=== PATIENT | female | born 1935 | race Caucasian/White ===

== ENCOUNTER → 2017-03-12 | Outpatient (CLI) | payer OTHER ==
[~2017-03-12] MED LIST: ACET-1256 PO; CLR10 PO; CMD25 PO; DIGO0.2518 PO; GABA-112 PO; METO25TA56 PO; PXL20 PO
--- NOTE | 2017-03-13 12:46 | MAMMOGRAPHY REPORT ---
BILATERAL DIGITAL SCREENING MAMMOGRAM TOMOSYNTHESIS WITH CAD: 03/12/2017 CLINICAL HISTORY: Routine screening. Patient has no complaints. TECHNIQUE: Breast tomosynthesis in addition to standard 2D mammography was performed. Current study was also evaluated with a Computer Aided Detection (CAD) system. COMPARISON: Comparison is made to exams dated: 09/19/2016 ultrasound, 09/19/2016 mammogram, 03/15/20 16 ultrasound, 03/06/2016 mammogram, 09/23/2014 ultrasound biopsy, and 03/04/2015 mammogram - [facility]. BREAST COMPOSITION: The tissue of both breasts is heterogeneously dense, which may obscure small ma sses. FINDINGS: There is a stable ribbon shaped metallic biopsy marker in the 6:00 left breast. A few sta ble benign-appearing microcalcifications. No new suspicious mass, architectural distortion or clust er of microcalcifications is seen. IMPRESSION: ACR BI-RADS CATEGORY 1: NEGATIVE There is no mammographic evidence of malignancy. A 1 year screening mammogram is recommended. The p atient will receive written notification of the results. Approximately 10% of breast cancers are not detected with mammography. A negative mammographic repor t should not delay biopsy if a clinically suggestive mass is present. Luz Keen M.D. ay/:03/12/2017 16:45:52 [employer] Hand: Lashae MERCADO)(Gertrude), [facility] letter sent: Normal 1/2 BI-RADS Code: ACR BI-RADS Category 1: Negative
== END | disposition home or self-care (01) ==
LOC: C.MAMM 09:35
PROVIDERS: ATTEND Obstetrics & Gynecology
DX: Z12.31 Encounter for screening mammogram for malignant neoplasm of breast (principal)

== ENCOUNTER → 2018-01-07 | Outpatient (CLI) | payer OTHER ==
[2018-01-07 12:52] LABS: HEMATOCRIT 44.2 % (37-47); MEAN CELL VOLUME 97.8 fL (80-100); MEAN CORPUSCULAR HEMOGLOBIN 33.2 pg (25-34); MEAN CORPUSCULAR HGB CONC 33.9 g/dl (32-36); MEAN PLATELET VOLUME 12.1 fL (7.4-10.4); PLATELET COUNT 149 K/uL (130-400); RED CELL DISTRIBUTION WIDTH CV 13.4 % (11.5-14.5); RED CELL DISTRIBUTION WIDTH SD 47.5 fL (36.4-46.3); WHITE BLOOD COUNT 16.29 K/uL (4.8-10.8)
[2018-01-07 13:50] LABS: BASO % 0.2 %; BASO ABS # 0.03 K/uL (0-0.2); EOS % 0.9 %; EOS ABS # 0.14 K/uL (0-0.5); IG# 0.04 K/uL (0.00-0.02); LYMPH % 78.1 %; LYMPH ABS # 12.72 K/uL (1.2-3.4); MONO % 4.6 %; MONO ABS # 0.75 K/uL (0.11-0.59); NEUT ABS # 2.61 K/uL (1.4-6.5)
== END | disposition home or self-care (01) ==
LOC: C.LABOAKS 10:30
PROVIDERS: ATTEND Internal Medicine Critical Care Medicine
DX: C91.10 Chronic lymphocytic leukemia of B-cell type not having achieved remission (principal)

== ENCOUNTER → 2018-03-14 | Outpatient (CLI) | payer OTHER ==
--- NOTE | 2018-03-17 07:45 | MAMMOGRAPHY REPORT ---
BILATERAL DIGITAL SCREENING MAMMOGRAM TOMOSYNTHESIS WITH CAD: 03/14/2018 CLINICAL HISTORY: Routine screening. Patient has no complaints. TECHNIQUE: Breast tomosynthesis in addition to standard 2D mammography was performed. Current study was also evaluated with a Computer Aided Detection (CAD) system. COMPARISON: Comparison is made to exams dated: 03/12/2017 mammogram, 09/19/2016 ultrasound, 6 mammogram, 03/15/2016 ultrasound, 03/15/2016 mammogram, and 03/06/2016 mammogram - [facility]. BREAST COMPOSITION: The tissue of both breasts is heterogeneously dense, which may obscure small mas ses. FINDINGS: No suspicious masses, calcifications, or areas of architectural distortion are noted in ei ther breast. There has been no significant interval change compared to prior exams. An asymmetry and associated biopsy marker clip in the left 6:00 breast are stable. Bilateral benign-appearing calcif ications are also not significantly changed. IMPRESSION: ACR BI-RADS CATEGORY 2: BENIGN There is no mammographic evidence of malignancy. A 1 year screening mammogram is recommended. The pa tient will receive written notification of the results. Approximately 10% of breast cancers are not detected with mammography. A negative mammographic report should not delay biopsy if a clinically suggestive mass is present. Alissa Jacobs M.D. /:03/14/2018 12:52:57 [employer]: Bella MERCADO)(Gertrude), [facility] letter sent: Normal 1/2 BI-RADS Code: ACR BI-RADS Category 2: Benign
== END | disposition home or self-care (01) ==
LOC: C.MAMM 09:54
PROVIDERS: ATTEND Internal Medicine Critical Care Medicine
DX: Z12.31 Encounter for screening mammogram for malignant neoplasm of breast (principal)

== ENCOUNTER 2019-05-02 10:01 | Inpatient (IN) ==
--- OUTSIDE RECORDS SUMMARY | 2019-05-02 10:04 | External Medical Summary | Continuity of Care Document ---
:1935 Author Name Conrado Tipton, Provider Address Unavailable Unavailable , Care Team Providers Name Role Phone Carlitos Alvarado M.D. 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 Refills: 0 Claritin 10 MG Oral Tablet; TAKE 1 TABLET DAILY NEEDED. Start: 13-Oct-2014 Refills: 0 Vitamin E-Selenium 400-50 UNIT-MCG CAPS; TAKE DIRECTED. Start: 13-Oct-2014 Refills: 0 Multi Vitamin/Minerals TABS Refills: 0 Vitamin D 1000 UNIT Oral Tablet Refills: 0 Vitamin C TABS Refills: 0 Calcium TABS Refills: 0 Zovirax 5 % External Ointment; APPLY A SMALL AMOUNT 3 TIMES DAILY DIRECTED. Danuta Quintero Start: 14-Jun-2011 Quantity: 1 15 GM Tube Refills: 1 Tobramycin-Dexamethasone 0.3-0.1 % Ophthalmic Suspension; IN STILL DROP PRN Start: 13-Oct-2014 Refills: 0 Lotemax 0.5 % Ophthalmic Suspension; INS TILL 1-2 DROPS INTO AFFECTED EYE(S) 4 TIMES DAILY DIRECTED. Start: 13-Oct-2014 Refills: 0 Digoxin TABS Refills: 0 Metoprolol Tartrate TABS Refills: 0 Coumadin TABS Refills: 0 Paxil TABS Refills: 0 Procedures History of Complete Colonoscopy Status: Completed History of Dilation And Curettage Status : Completed History of Fiberoptic Examinations Hysteroscopy Status: Completed History of Total Abdominal Hysterectomy Status: Completed History of Salpingo-oophorectomy Right Side Status: Completed History of Cataract Surgery Status: Comp leted History of Eye Surgery Status: Completed History of Ankle Surgery Status: Complet ed History of Appendectomy Status: Complete d History of Neuroplasty Decompression Median Nerve At Carpal Status: Completed Tunnel History of Knee Surgery Status: Complete d History of Nerve Block Status: Completed Immunizations Immunizations not documented Family History Unknown Family Member Family history of Breast Cancer (V16.3) Status: Active Comments: Family History Sister Family history of Colon Cancer (V16.0) Status: Active Mother Family history of Diabetes Mellitus (V18.0) Status: Active Family history of Hypertension (V17.49) Status: Active Family history of Acute Myocardial Infarction (V17.3) Status : Active Father Family history of Denial Of Any Significant Medical History Status: Active Brother Family history of Reported Family History Ischemic Heart Dis ease Status: Active Before Age 50 Family history of Hypertension (V17.49) Status: Active Family history of Hypertension (V17.49) Status: Active Family history of Reported Family History Ischemic Heart Dis ease Status: Active Before Age 50 Social History - Smoking Status Unknown if ever smoked Former smoker Plan of Treatment Planned Observations Planned Goals not documented Results No Known Results Results not documented Encounters Appointment; Vascular, Studies [facility]1 14-Nov-2017 14:30 Encounter Diagnosis: Problem not documented
[2019-05-02 11:00] LABS: Hematocrit (blood only) 45.8 % (37-47); Hemoglobin 16.1 g/dL (12.0-16.0); Mean Corpuscular Hgb Conc 35.2 g/dL (32-36); Mean Corpuscular Volume 92.9 fL (80-100); Mean Platelet Volume 11.1 fL (7.4-10.4); Platelet Count 180 K/uL (130-400); RDW Coefficient of Variation 12.7 % (11.5-14.5); Red Blood Count 4.93 M/uL (4.2-5.4); White Blood Count 21.94 K/uL (4.8-10.8)
[2019-05-02 11:07] LABS: Albumin Level 3.7 gm/dl (3.4-5.0); BUN Creatinine Ratio 18.7 (10-20); Calcium 8.6 mg/dl (8.5-10.1); Creatinine Clr Calc Pharmacy 49.3 ml/min; Est GFR (Non-African American) 63.8; INR 1.2 (0.9-1.1); Magnesium 2.1 mg/dl (1.8-2.4); Partial Thromboplastin Time 26.2 Seconds (21.0-31.0); Potassium 3.6 mmol/L (3.5-5.1); Prothrombin Time 11.9 Seconds (9.0-12.0)
[2019-05-02 11:10] LABS: Albumin Globulin Ratio 1.1 (0.9-2); Globulin 3.4 gm/dl (2.5-4.0); Total Protein 7.1 gm/dl (6.4-8.2)
[2019-05-02 11:26] LABS: Basophils # (auto) 0.03 K/uL (0-0.2); Basophils % (auto) 0.1 %; Eosinophils # (auto) 0.08 K/uL (0-0.5); Eosinophils % (auto) 0.4 %; Immature Granulocytes # (auto) 0.05 K/uL (0.00-0.02); Immature Granulocytes % (auto) 0.2 %; Lymphocytes # (auto) 15.99 K/uL (1.2-3.4); Lymphocytes % (auto) 72.9 %; Monocytes # (auto) 0.97 K/uL (0.11-0.59); Monocytes % (auto) 4.4 %; Neutrophils # (auto) 4.82 K/uL (1.4-6.5); Smudge Cells Present
--- NOTE | 2019-05-02 12:06 | CT Scan Report ---
CT head/brain wo con CLINICAL HISTORY: Acute stroke like symptoms COMPARISON STUDY: January 2015 TECHNIQUE: Axial CT of the brain is performed from the vertex to the skull base. IV contrast was not administered for this examination. A dose lowering technique was utilized adhering to the principles of ALARA. CT DOSE: 537.48 mGy.cm FINDINGS: No intra or extra-axial mass lesions are visualized. There is no CT evidence of acute cortical infarc tion. There is no evidence of midline shift. There is no acute hemorrhage. No calvarial fractures ar e visualized. There are patchy white matter hypodensities likely on a small vessel basis. The findings are progress aramis when compared the prior January 2015 study There is no evidence of pathologic ventricular dilatation. There is no evidence of acute sinusitis IMPRESSION: 1. No acute intracranial findings 2. Progressive white matter disease likely a small vessel ischemic basis Electronically signed by: Varghese Hooker M.D. 05/02/2019 12:04 PM
[2019-05-02] MEDS ORDERED: cefTRIAXone SODIUM 1,000 MG/50 ML BAG IV STA (12:23)
[2019-05-02 12:32] LABS: Appearance Urine Clear (Clear); Bacteria Urine Automated Negative (Negative); Bilirubin Urine Negative (Negative); Blood Urine Negative (Negative); Color Urine Yellow; Glucose Urine UA Negative (Negative); Ketones Urine Negative (Negative); Leukocyte Esterase Urine 1+ (Negative); Nitrite Urine Negative (Negative); Protein Urine Negative (Negative); RBC Urine Automated 0-4 /hpf (0-4); Specific Gravity Urine 1.015 (1.000-1.030); Urobilinogen Urine Positive (Negative)
--- NOTE | 2019-05-02 12:34 | XRay Report ---
XR chest 1V portable CLINICAL HISTORY: Acute change in mental status. Elevated white count. COMPARISON STUDY: January 2015 FINDINGS: The heart is borderline enlarged. There is no failure. There is no focal pulmonary consolid ation. There are no pleural effusions. There is a calcified left lower lung zone granuloma.[ IMPRESSION: No active disease in the chest. Electronically signed by: Varghese Hooker M.D. 05/02/2019 12:32 PM
[2019-05-02] MEDS ORDERED: LIDOCAINE/EPINEPHRINE 1% 20 ML VIAL ONE (13:47)
[2019-05-02 13:52] LABS: Lyme Ab IgG w/WB Rflx Negative (Negative); Lyme Ab IgM w/WB Rflx Negative (Negative)
[2019-05-02 14:27] LABS: Appearance CSF Clear; CSF Count Tube # 3; CSF Xanthrochromic No xanthochromia; Color CSF Colorless; Red Blood Cell CSF (A) 62 /uL (0-); Red Blood Cell CSF (B) 78 /uL (0-); White Blood Cell CSF (A) 0 /uL (0-5); White Blood Cell CSF (B) 0 /uL (0-5)
[2019-05-02 14:36] LABS: Total Protein CSF 36.4 mg/dl (15-45)
--- NOTE | 2019-05-02 15:13 | Emergency Department Note ---
Entered by Nelia Rojas acting as a scribe for Heather Trinidad MD History of Present Illness General Chief complaint: Stroke/CVA Symptoms Stated complaint: DIFFICULTY SPEAKING,SLURRED SPEECH Source: patient and family History of Present Illness Provider complaint: difficulty talking Onset (ago): day(s) (yesterday) Location: mouth Pain Consistency: + intermittent Quality: + other (difficulty talking) Associated symptoms: + other (tired); no chest pain, no fever/chills, no headaches and no shortness of breath The patient is an 84 year old female who presents to the Emergency Department with complaints of intermittent difficulty talking since yesterday. She states that she did not feel 4 days ago and states that she felt tired. She states that she has not had these symptoms before. Per family, the patient lives at [facility] on her own. Per family, the patient was having difficulty talking last night on the phone. Her family states that the patient took her pills yesterday but not the 2 prior days. The patient denies being febrile or having chest pain, back pain, headaches, difficulty with urination, or shortness of breath. The patient denies recent falls or hitting her head. The patient does report having some bruises. Per family, the patient is on warfarin for atrial fibrillation. Home Medications Home Medications Medication Instructions Recorded Confirmed Type digoxin 250 mcg PO DAILY 05/02/19 05/02/19 History gabapentin 100 mg PO TID 05/02/19 05/02/19 History loteprednol etabonate [Lotemax] 1 drp OPB DAILY 05/02/19 05/02/19 History metoprolol tartrate 12.5 mg PO DAILY 05/02/19 05/02/19 History paroxetine HCl 5 mg PO DAILY 05/02/19 05/02/19 History timolol maleate 1 drp OPB BID 05/02/19 05/02/19 History warfarin [Jantoven] 1.25 mg PO DIRECTED 05/02/19 05/02/19 History Allergies Allergy/AdvReac Type Severity Reaction Status Date / Time hydrocodone Allergy Intermediate RASH Verified 05/02/19 16:18 oxycodone Allergy Intermediate RASH Verified 05/02/19 16:18 sertraline Allergy Intermediate RASH- Verified 05/02/19 16:18 TAKES PAXIL W/O PROBLEM adhesive Allergy Mild SOME Verified 05/02/19 11:24 TAPES- RED SKIN naproxen AdvReac Mild HEADACHES Verified 05/02/19 16:18 Past Med/Surg History Medical History DVT prophylaxis Warfarin anticoagulation (Chronic) Chronic atrial fibrillation (Chronic) Altered mental status (Acute) Leukocytosis (Chronic) Symptoms of cerebrovascular accident (CVA) (Acute) Atrial fibrillation (Acute) RSD (reflex sympathetic dystrophy) (Chronic) Social History Preferred Language: Frisian Communication Ability: Effective Communication Ability Comment: Having some expressive aphasia, no receptive aph agia apparent [employer] Specialist Required: No Beliefs That Will Affect Care: Congregational Congregational Beliefs: Jabari Current Living Situation: Alone Current Living Situation Comment: lives at [facility] in an independent living apartment Other Information That Helps Us Care for You: No Feels Safe at Home: Yes Safety Concerns: Feels Safe At This Time Smoking Status: Former smoker Do You Dip or Chew Tobacco: No Smoking End Date: quit in 1949 Second Hand Exposure: No Hx Alcohol Use: No Hx Substance Use: No Review of Systems See HPI for pertinent positives & negatives. and A total of 10 systems reviewed and were otherwise negative Physical Exam Vital Signs Vital Signs - 24 hr 05/02/19 10:11 05/02/19 10:46 05/02/19 10:48 Temperature 36.6 C Temperature Source Oral Sepsis Recent Fever Within 48 Hours No Sepsis New/Unexplained Change in Mental Status No Sepsis Action Taken by Nursing No Action Required Pulse Rate 70 68 67 Pulse Rate from SpO2 Sensor 68 71 Respiratory Rate 18 15 18 Respiratory Depth Normal Blood Pressure 147/83 H 171/81 H Blood Pressure Mean 104 111 Pulse Oximetry 99 97 97 Oxygen Delivery Method Room Air 05/02/19 10:54 05/02/19 11:10 05/02/19 11:30 Temperature Temperature Source Sepsis Recent Fever Within 48 Hours Sepsis New/Unexplained Change in Mental Status Sepsis Action Taken by Nursing Pulse Rate 73 66 Pulse Rate from SpO2 Sensor Respiratory Rate Respiratory Depth Blood Pressure Blood Pressure Mean Pulse Oximetry Oxygen Delivery Method Room Air 05/02/19 12:03 05/02/19 12:15 Temperature Temperature Source Sepsis Recent Fever Within 48 Hours Sepsis New/Unexplained Change in Mental Status Sepsis Action Taken by Nursing Pulse Rate 70 68 Pulse Rate from SpO2 Sensor 68 Respiratory Rate 16 19 Respiratory Depth Blood Pressure 173/82 H Blood Pressure Mean 112 Pulse Oximetry 95 Oxygen Delivery Method Vital signs reviewed. General: Well-appearing female, in no significant distress. HEENT: No scleral icterus, PERRLA, neck supple. Atraumatic. Cardiovascular: Regular rate and rhythm, no extra sounds. Pulmonary: Clear to auscultation bilaterally, normal work of breathing. Abdomen: Soft, nontender, nondistended, positive bowel sounds. Musculoskeletal: Bruising to the right upper extremity from the mid humerus to the mid forearm. No open wound. Various ecchymosis along the right chest that a ppears to be well healing. Large hematomas noted to the right leg. Full range of motion without difficulty. No open wound. Neurologic: Cannot recall the year or physician names, but able to follow co mmands. Skin: Warm, dry, no rash Procedures Free Text Procedures Lumbar Puncture Indication: leukocytosis, AMS. Verbal consent was obtained after the risks and benefits were explained, including but not limited to headache, bleeding/clotting, scarring, infection, pain, and bone/joint/nerve damage. At this time, the risks of the procedure are less than the risks of NOT performing the procedure. A time out was taken and the correct patient and site identified. The patient was placed in the left lateral decubitus position and the back was prepped with betadine and draped in the standard fashion. The L3 intervertebral space was identified, anesthetized locally with 1% lidocaine without epinephrine, and the spinal needle was inserted through the skin with the bevel parallel to the dural fibers. The needl e was carefully advanced into the lumbar cistern and 4 tubes of cloudy and then clearing CSF was obtained. The stylet was replaced and the needle was removed. A bandaid was placed and the patient was placed in the supine position. The patient tolerated the procedure well and there were no complications. Course 1046: The patient was evaluated in room B7. A history and physical were performed. 1309: I updated the patient and her family on her results. 1320: I performed a lumbar puncture on the patient. 1404: I discussed the patient's case with Dr. Karen Gonzalez who will evaluate the patient for further management. He stated that the patient has a chronically elevated white count but that it has not been this high recently. Consultations Consultation #1: Dr. Karen Gonzalez Time: 14:04 Administered Medications Aspirin (Ecotrin Ectab) 81 mg PO QAM [facility] Stop: 06/02/19 08:59 Last Admin: 05/03/19 07:51 Dose: 81 mg Documented by: [id number] Atorvastatin Calcium (Lipitor) 40 mg PO QAM [facility] Stop: 06/02/19 08:59 Last Admin: 05/03/19 07:51 Dose: 40 mg Documented by: [id number] Digoxin (Lanoxin) 0.25 mg PO DAILY@1600 [facility] Stop: 06/02/19 15:59 Last Admin: 05/03/19 16:17 Dose: 0.25 mg Documented by: [id number] Gabapentin (Neurontin) 100 mg PO TID [facility] Stop: 06/01/19 20:59 Last Admin: 05/03/19 16:18 Dose: 100 mg Documented by: [id number] Admin: 05/03/19 07:51 Dose: 100 mg Documented by: [id number] Admin: 05/02/19 21:19 Dose: 100 mg Documented by: [id number] Sodium Chloride (Nss 1000ml) 1,000 mls @ 75 mls/hr IV .[id number] SHAYNA Stop: 06/01/19 16:08 Last Admin: 05/03/19 05:59 Dose: 75 mls/hr Documented by: [id number] Infusion: 05/03/19 05:59 Dose: 75 mls/hr Documented by: [id number] Admin: 05/02/19 16:52 Dose: 75 mls/hr Documented by: [id number] Lotemax 0.5%Non- Formulary Patient's Own Med 1 ea OP DAILY SHAYNA Stop: 06/02/19 08:59 Last Admin: 05/03/19 07:52 Dose: 1 drops Documented by: [id number] Paroxetine HCl (Paroxetine Hcl) 5 mg PO DAILY SHAYNA Stop: 06/02/19 08:59 Last Admin: 05/03/19 07:51 Dose: 5 mg Documented by: [id number] Timolol Maleate (Timoptic-Xe 0.5% Oph) 1 drops OPB BID SHAYNA Stop: 06/01/19 20:59 Last Admin: 05/03/19 07:53 Dose: 1 drops Documented by: [id number] Admin: 05/02/19 21:00 Dose: Not Given Documented by: [id number] Discontinued Medications Enoxaparin Sodium (Lovenox) 40 mg SQ Q24H SHAYNA Stop: 06/01/19 20:59 Last Admin: 05/02/19 21:21 Dose: 40 mg Documented by: [id number] Ceftriaxone Sodium (Rocephin) 1,000 mg in 50 mls @ 100 mls/hr IV NOW STA Stop: 05/02/19 12:52 Last Infusion: 05/02/19 12:45 Dose: 0 mls/hr Documented by: [id number] Admin: 05/02/19 12:23 Dose: 100 mls/hr Documented by: [id number] Lidocaine/Epinephrine (Xylocaine/Epinephrine 1%) Confirm Administered Dose 20 ml .ROUTE .[facility] Stop: 05/02/19 13:48 Last Admin: 05/02/19 14:04 Dose: 20 ml Documented by: [id number] Metoprolol Tartrate (Lopressor) 12.5 mg PO DAILY [facility] Stop: 06/02/19 08:59 Last Admin: 05/03/19 07:57 Dose: 12.5 mg Documented by: [id number] Warfarin Sodium (Coumadin) 1.25 mg PO [id number]@1600 [facility] Stop: 06/01/19 17:59 Last Admin: 05/02/19 17:19 Dose: 1.25 mg Documented by: [id number] Medical Decision Making Differential Diagnosis Etiologies such as metabolic, infection, hypoglycemia, electrolyte abnormalities, cardiac sources, intracerebral event, toxicologic, neurologic, as well as others were entertained. Medical Records Attestation: I reviewed the patient's medical records. Home Medications Current Medication List: was personally reviewed by me Laboratory Data Attestation: I reviewed the patient's lab results. Result diagrams: 05/03/19 05:40 05/03/19 05:40 Lab Results 05/02/19 05/02/19 05/02/19 Range/Units 10:32 10:32 10:32 WBC 21.94 H (4.8-10.8) K/uL RBC 4.93 (4.2-5.4) M/uL Hgb 16.1 H (12.0-16.0) g/dL Hct 45.8 (37-47) % MCV 92.9 (80-100) fL MCH 32.7 (25-34) pg MCHC 35.2 (32-36) g/dL RDW Std Deviation 43.0 (36.4-46.3) fL RDW Coeff of Becky 12.7 (11.5-14.5) % Plt Count 180 (130-400) K/uL MPV 11.1 H (7.4-10.4) fL Immature Gran % (Auto) 0.2 % Neut % (Auto) 22.0 % Lymph % (Auto) 72.9 % [place] % (Auto) 4.4 % Eos % (Auto) 0.4 % Baso % (Auto) 0.1 % Immature Gran # (Auto) 0.05 H (0.00-0.02) K/uL Neut # (Auto) 4.82 (1.4-6.5) K/uL Lymph # (Auto) 15.99 H (1.2-3.4) K/uL [place] # (Auto) 0.97 H (0.11-0.59) K/uL Eos # (Auto) 0.08 (0-0.5) K/uL Baso # (Auto) 0.03 (0-0.2) K/uL Smudge Cells Present PT 11.9 (9.0-12.0) Seconds INR 1.2 H (0.9-1.1) APTT 26.2 (21.0-31.0) Seconds PTT Ratio 1.0 Sodium 138 (136-145) mmol/L Potassium 3.6 (3.5-5.1) mmol/L Chloride 105 (98-107) mmol/L Carbon Dioxide 29 (21-32) mmol/L Anion Gap 4.0 (3-11) BUN 16 (7-18) mg/dl Creatinine 0.85 (0.6-1.2) mg/dl Est Cr Clr Drug Dosing 49.3 ml/min Est GFR ( Amer) 74.0 Est GFR (Non-Af Amer) 63.8 BUN/Creatinine Ratio 18.7 (10-20) Glucose 109 H (70-99) mg/dl Calcium 8.6 (8.5-10.1) mg/dl Magnesium 2.1 (1.8-2.4) mg/dl Total Bilirubin 1.0 (0.2-1) mg/dl AST 42 H (15-37) U/L ALT 39 (12-78) U/L Alkaline Phosphatase 97 (45-117) U/L Troponin I (0-0.045) ng/ml Total Protein 7.1 (6.4-8.2) gm/dl Albumin 3.7 (3.4-5.0) gm/dl Globulin 3.4 (2.5-4.0) gm/dl Albumin/Globulin Ratio 1.1 (0.9-2) Urine Color Urine Appearance (Clear) Urine pH (4.5-7.5) Ur Specific [place] (1.000-1.030) Urine Protein (Negative) Urine Glucose (UA) (Negative) Urine Ketones (Negative) Urine Blood (Negative) Urine Nitrite (Negative) Urine Bilirubin (Negative) Urine Urobilinogen (Negative) Ur Leukocyte Esterase (Negative) Urine WBC (Auto) (0-5) /hpf Urine RBC (Auto) (0-4) /hpf U Hyaline Cast (Auto) (0-5) /lpf U Epithel Cells (Auto) (0-5) /lpf Urine Bacteria (Auto) (Negative) CSF Appearance CSF Color Xanthrochromic CSF WBC (0-5) /uL CSF RBC (0-) /uL CSF Cell Count Tube # CSF Chemistry Tube # CSF Glucose (40-70) mg/dl CSF Total Protein (15-45) mg/dl CSF Lyme IgG (Immblot) CSF Lyme IgG Bands Det CSF Lyme IgM (Immblot) CSF Lyme IgM Bands Det Lyme Disease IgG Ab (Negative) Lyme Disease IgM Ab (Negative) 05/02/19 05/02/19 05/02/19 Range/Units 10:32 10:32 12:00 WBC (4.8-10.8) K/uL RBC (4.2-5.4) M/uL Hgb (12.0-16.0) g/dL Hct (37-47) % MCV (80-100) fL MCH (25-34) pg MCHC (32-36) g/dL RDW Std Deviation (36.4-46.3) fL RDW Coeff of Becky (11.5-14.5) % Plt Count (130-400) K/uL MPV (7.4-10.4) fL Immature Gran % (Auto) % Neut % (Auto) % Lymph % (Auto) % [place] % (Auto) % Eos % (Auto) % Baso % (Auto) % Immature Gran # (Auto) (0.00-0.02) K/uL Neut # (Auto) (1.4-6.5) K/uL Lymph # (Auto) (1.2-3.4) K/uL [place] # (Auto) (0.11-0.59) K/uL Eos # (Auto) (0-0.5) K/uL Baso # (Auto) (0-0.2) K/uL Smudge Cells PT (9.0-12.0) Seconds INR (0.9-1.1) APTT (21.0-31.0) Seconds PTT Ratio Sodium (136-145) mmol/L Potassium (3.5-5.1) mmol/L Chloride (98-107) mmol/L Carbon Dioxide (21-32) mmol/L Anion Gap (3-11) BUN (7-18) mg/dl Creatinine (0.6-1.2) mg/dl Est Cr Clr Drug Dosing ml/min Est GFR ( Amer) Est GFR (Non-Af Amer) BUN/Creatinine Ratio (10-20) Glucose (70-99) mg/dl Calcium (8.5-10.1) mg/dl Magnesium (1.8-2.4) mg/dl Total Bilirubin (0.2-1) mg/dl AST (15-37) U/L ALT (12-78) U/L Alkaline Phosphatase (45-117) U/L Troponin I < 0.015 (0-0.045) ng/ml Total Protein (6.4-8.2) gm/dl Albumin (3.4-5.0) gm/dl Globulin (2.5-4.0) gm/dl Albumin/Globulin Ratio (0.9-2) Urine Color Yellow Urine Appearance Clear (Clear) Urine pH 7.0 (4.5-7.5) Ur Specific [place] 1.015 (1.000-1.030) Urine Protein Negative (Negative) Urine Glucose (UA) Negative (Negative) Urine Ketones Negative (Negative) Urine Blood Negative (Negative) Urine Nitrite Negative (Negative) Urine Bilirubin Negative (Negative) Urine Urobilinogen Positive H (Negative) Ur Leukocyte Esterase 1+ H (Negative) Urine WBC (Auto) 1-5 (0-5) /hpf Urine RBC (Auto) 0-4 (0-4) /hpf U Hyaline Cast (Auto) 1-5 (0-5) /lpf U Epithel Cells (Auto) 10-20 H (0-5) /lpf Urine Bacteria (Auto) Negative (Negative) CSF Appearance CSF Color Xanthrochromic CSF WBC (0-5) /uL CSF RBC (0-) /uL CSF Cell Count Tube # CSF Chemistry Tube # CSF Glucose (40-70) mg/dl CSF Total Protein (15-45) mg/dl CSF Lyme IgG (Immblot) CSF Lyme IgG Bands Det CSF Lyme IgM (Immblot) CSF Lyme IgM Bands Det Lyme Disease IgG Ab Negative (Negative) Lyme Disease IgM Ab Negative (Negative) 05/02/19 05/02/19 05/02/19 Range/Units 13:55 14:00 14:00 WBC (4.8-10.8) K/uL RBC (4.2-5.4) M/uL Hgb (12.0-16.0) g/dL Hct (37-47) % MCV (80-100) fL MCH (25-34) pg MCHC (32-36) g/dL RDW Std Deviation (36.4-46.3) fL RDW Coeff of Becky (11.5-14.5) % Plt Count (130-400) K/uL MPV (7.4-10.4) fL Immature Gran % (Auto) % Neut % (Auto) % Lymph % (Auto) % [place] % (Auto) % Eos % (Auto) % Baso % (Auto) % Immature Gran # (Auto) (0.00-0.02) K/uL Neut # (Auto) (1.4-6.5) K/uL Lymph # (Auto) (1.2-3.4) K/uL [place] # (Auto) (0.11-0.59) K/uL Eos # (Auto) (0-0.5) K/uL Baso # (Auto) (0-0.2) K/uL Smudge Cells PT (9.0-12.0) Seconds INR (0.9-1.1) APTT (21.0-31.0) Seconds PTT Ratio Sodium (136-145) mmol/L Potassium (3.5-5.1) mmol/L Chloride (98-107) mmol/L Carbon Dioxide (21-32) mmol/L Anion Gap (3-11) BUN (7-18) mg/dl Creatinine (0.6-1.2) mg/dl Est Cr Clr Drug Dosing ml/min Est GFR ( Amer) Est GFR (Non-Af Amer) BUN/Creatinine Ratio (10-20) Glucose (70-99) mg/dl Calcium (8.5-10.1) mg/dl Magnesium (1.8-2.4) mg/dl Total Bilirubin (0.2-1) mg/dl AST (15-37) U/L ALT (12-78) U/L Alkaline Phosphatase (45-117) U/L Troponin I (0-0.045) ng/ml Total Protein (6.4-8.2) gm/dl Albumin (3.4-5.0) gm/dl Globulin (2.5-4.0) gm/dl Albumin/Globulin Ratio (0.9-2) Urine Color Urine Appearance (Clear) Urine pH (4.5-7.5) Ur Specific [place] (1.000-1.030) Urine Protein (Negative) Urine Glucose (UA) (Negative) Urine Ketones (Negative) Urine Blood (Negative) Urine Nitrite (Negative) Urine Bilirubin (Negative) Urine Urobilinogen (Negative) Ur Leukocyte Esterase (Negative) Urine WBC (Auto) (0-5) /hpf Urine RBC (Auto) (0-4) /hpf U Hyaline Cast (Auto) (0-5) /lpf U Epithel Cells (Auto) (0-5) /lpf Urine Bacteria (Auto) (Negative) CSF Appearance Clear CSF Color Colorless Xanthrochromic No xanthochromia CSF WBC 0 (0-5) /uL CSF RBC 62 (0-) /uL CSF Cell Count Tube # 3 CSF Chemistry Tube # 1 CSF Glucose 56 (40-70) mg/dl CSF Total Protein 36.4 (15-45) mg/dl CSF Lyme IgG (Immblot) Cancelled CSF Lyme IgG Bands Det Cancelled CSF Lyme IgM (Immblot) Cancelled CSF Lyme IgM Bands Det Cancelled Lyme Disease IgG Ab (Negative) Lyme Disease IgM Ab (Negative) Imaging Data Radiologist's Impression: Radiology results as stated below per my review and the radiologist's interpretation: CT head/brain wo con CLINICAL HISTORY: Acute stroke like symptoms COMPARISON STUDY: January 2015 TECHNIQUE: Axial CT of the brain is performed from the vertex to the skull base. IV contrast was not administered for this examination. A dose lowering technique was utilized adhering to the principles of ALARA. CT DOSE: 537.48 mGy.cm FINDINGS: No intra or extra-axial mass lesions are visualized. There is no CT evidence of acute cortical infarction. There is no evidence of midline shift. There is no acute hemorrhage. No calvarial fractures are visualized. There are patchy white matter hypodensities likely on a small vessel basis. The findings are progressive when compared the prior January 2015 study There is no evidence of pathologic ventricular dilatation. There is no evidence of acute sinusitis IMPRESSION: 1. No acute intracranial findings 2. Progressive white matter disease likely a small vessel ischemic basis Electronically signed by: Varghese Hooker M.D. 05/02/2019 12:04 PM XR chest 1V portable CLINICAL HISTORY: Acute change in mental status. Elevated white count. COMPARISON STUDY: January 2015 FINDINGS: The heart is borderline enlarged. There is no failure. There is no focal pulmonary consolidation. There are no pleural effusions. There is a calcified left lower lung zone granuloma.[ IMPRESSION: No active disease in the chest. Electronically signed by: Varghese Hooker M.D. 05/02/2019 12:32 PM ECG Data Attestation: I personally reviewed and interpreted this ECG as follows: Indication: weakness Rate (beats per minute): 68 Rhythm: atrial fibrillation (rate controlled) Findings: + nonspecific-ST abn (diffusely ) Blood Pressure Blood Pressure Findings: Elevated blood pressure Blood Pressure Disposition: further management by hospitalist [facility] Narrative This patient was evaluated and appeared to be in no significant distress. IV access was obtained and laboratory work was drawn. Patient was somewhat unable to complete full sentences. She did have some subtle confusion. She is found to have an elevated WBC. She is afebrile. Patient's INR is subtherapeutic. CT scan of the head was performed and is negative. UA is negative for infection. Chest x-ray is clear. Lumbar puncture was performed at the bedside. Preliminarily this appears to be noninfectious. I suspect the patient has had a subacute/subtle infarct over the last several days. She was hydrated with normal saline solution. Case was discussed with the hospitalist service, Dr. Ambriz who will evaluate the patient for further management. Impression & Plan Altered mental status, Leukocytosis, Symptoms of cerebrovascular accident (CVA) Discharge Plan Visit Data *Final* Discharge Date/Time: 05/02/19 15:53 Chief Complaint: Stroke/CVA Symptoms Stated Complaint: DIFFICULTY SPEAKING,SLURRED SPEECH ED Provider: Heather Trinidad Discharge Problem: Altered mental status, Leukocytosis, Symptoms of cerebrovascular accident (CVA) Patient Disposition: Admitted As Inpatient Discharge Instructions Interventions: ED Discharge Assessment Last Done: 05/02/19 15:53 Discharge Problem: Altered mental status Qualifiers: Altered mental status type: unspecified Qualified Code(s): R41.82 - Altered mental status, unspecified Leukocytosis Qualifiers: Leukocytosis type: unspecified Qualified Code(s): D72.829 - Elevated white blood cell count, unspecified The scribe's documentation has been prepared under my direction and personally reviewed by me in its entirety. I confirm that the note above accurately reflects all work, treatment, procedures, and medical decision making performed by me.
[2019-05-02] MEDS ORDERED: ACETAMINOPHEN 325 MG TAB PO PRN (16:09)
[2019-05-02] MEDS ORDERED: PHARMACIST DISCHARGE MED REC CONSULT PRN (16:09)
[2019-05-02] MEDS ORDERED: ALUMINUM/MAGNESIUM SUSP 30 ML UDC PO PRN (16:09)
[2019-05-02] MEDS ORDERED: ONDANSETRON INJ 2 MG/ML 2 ML VIAL IV PRN (16:09)
[2019-05-02] MEDS: SODIUM CHLORIDE 0.9% 1000ML 1,000 ML IV SCH (16:52)
--- NOTE | 2019-05-02 17:55 | Magnetic Resonance Report ---
MR ANGIOGRAPHY OF THE [place] NO CONTRAST CLINICAL HISTORY: Acute change in mental status. Suspected stroke. COMPARISON STUDY: None. A 3-D [id number] MR angiographic sequence of the [place] was performed. Both the source and projection images were reviewed. There is no evidence of major intracranial branch occlusion. There is no evidence of intracranial rebeca nosis. There are no lesions suspicious for aneurysm. There is slight prominence the basilar tip, but this is not felt to represent a focal aneurysm. IMPRESSION: Unremarkable MR angiography of the [place]. Electronically signed by: Varghese Hooker M.D. 05/02/2019 5:54 PM
[2019-05-02] MEDS ORDERED: WARFARIN SOD 1.25 MG TAB PO SCH (18:00)
--- NOTE | 2019-05-02 18:43 | Magnetic Resonance Report ---
MRI OF THE BRAIN WITHOUT CONTRAST CLINICAL HISTORY: Acute stroke symptoms COMPARISON STUDY: Noncontrast head CT performed the same day FINDINGS: Sagittal T1, axial diffusion, proton density and T2 weighted axial, coronal FLAIR, and axial T1-weigh khloe images were acquired. No intra or extra-axial mass lesions are visualized There are multiple scattered small foci restricted water diffusion within the left hemisphere with in volvement of the left superior occipital lobe, left temporal, left parietal lobe and left frontal lob e. The findings are consistent with acute/subacute infarcts. There is no evidence of ventricular dilatation. Proton density T2-weighted and FLAIR images reveal moderate foci of increased T2 signal within the wh ite matter, likely on a small vessel basis. There are no abnormal flow voids. IMPRESSION: 1. Multiple small foci of restricted water diffusion within the left hemisphere consistent with acute /subacute infarcts. There is involvement of the left occipital, temporal, left frontal, and left paola etal lobes. 2. No evidence of intracranial mass 3. Moderately extensive white matter disease, likely on a small vessel basis Electronically signed by: Varghese Hooker M.D. 05/02/2019 6:41 PM
--- NOTE | 2019-05-02 18:45 | Magnetic Resonance Report ---
NECK MRA HISTORY: Acute stroke TECHNIQUE: [id number] and gadolinium-enhanced MRA of the neck was performed both before and after the intravenous administration of contrast. All measurements were calculated based on NASCET criteri a. The patient was administered 7 cc of intravenous Gadavist. COMPARISON STUDY: None. FINDINGS: The aortic arch and proximal great vessels are widely patent. There is no significant sten osis, occlusion, or dissection identified within the bilateral common carotid, internal carotid, or v ertebral arteries. IMPRESSION: No significant stenosis, occlusion, or dissection identified within the carotid or vertebral arteries . Electronically signed by: Varghese Hooker M.D. 05/02/2019 6:43 PM
[2019-05-02] MEDS ORDERED: ENOXAPARIN INJ 40 MG/0.4 ML SYR SQ SCH (21:00)
[2019-05-02] MEDS: TIMOLOL GFS 0.5% OPH SOLN 74 DROPS/5 ML BTL OPB SCH ×2 (21:00→21:21)
[2019-05-02] MEDS: GABAPENTIN 100 MG CAP PO SCH (21:19)
--- NOTE | 2019-05-02 21:28 | History & Physical Report ---
Date of Service May 02, 2019 Assessment & Plan (1) Symptoms of cerebrovascular accident (CVA): Very mild dysarthria and confusion. Head CT scan negative. Brain MRI/MRA pending. Consult neurology. Start aspirin therapy and statin therapy. Present on Admission?: Yes (2) Leukocytosis: This appears to be chronic after reviewing previous labs. Will follow Present on Admission?: Yes (3) Altered mental status: She is mildly confused. No source of infection noted despite elevated white blood cell count which appears to be chronic. Present on Admission?: Yes (4) Chronic atrial fibrillation: Controlled rate with metoprolol. Telemetry. Cardiac echo Present on Admission?: Yes (5) Warfarin anticoagulation: She apparently has not taken her Coumadin for several days. INR is only 1.2. She will be treated with Lovenox until INR is therapeutic. Present on Admission?: Yes (6) DVT prophylaxis: Continue Coumadin although she is subtherapeutic. Lovenox subcu until INR is therapeutic History of Present Illness Chief Complaint: Altered mental status, mild dysarthria Primary Care Provider: SERGEILeland 84-year-old female who has not been feeling well for about 1 week. Her daughter saw her yesterday and noticed altered mental status and mild dysarthria. This probably has been going on for nearly 1 week. She was brought to the ED for evaluation. White blood cell is elevated but has been chronically elevated. Head CT scan is unremarkable. Lumbar puncture was done and CSF studies are pending. Chest x-ray negative. No UTI. She is mildly dysarthric on examination but no other focal motor deficits. She is mildly confused. I suspect she has had a small CVA. Apparently she has not taken her medication for 1 or 2 days and her INR on Coumadin is only 1.2. She has chronic atrial fibrillation. She will be admitted for further evaluation and treatment along with neurological consultation. Brain MRI/MRA has been ordered. Allergies Allergy/AdvReac Type Severity Reaction Status Date / Time adhesive Allergy Mild SOME Verified 05/02/19 11:24 TAPES- RED SKIN hydrocodone Allergy Unknown RASH Verified 05/02/19 11:24 oxycodone Allergy Unknown RASH Verified 05/02/19 11:24 sertraline Allergy Unknown RASH- Verified 05/02/19 11:24 TAKES PAXIL W/O PROBLEM naproxen AdvReac Intermediate HEADACHES Verified 05/02/19 11:24 Home Medications Home Medications Medication Instructions Recorded Confirmed Type digoxin 250 mcg PO DAILY 05/02/19 05/02/19 History gabapentin 100 mg PO TID 05/02/19 05/02/19 History loteprednol etabonate [Lotemax] 1 drp OPB DAILY 05/02/19 05/02/19 History metoprolol tartrate 12.5 mg PO DAILY 05/02/19 05/02/19 History paroxetine HCl 5 mg PO DAILY 05/02/19 05/02/19 History timolol maleate 1 drp OPB BID 05/02/19 05/02/19 History warfarin [Jantoven] 1.25 mg PO DIRECTED 05/02/19 05/02/19 History Past Med/Surg History Medical History DVT prophylaxis Warfarin anticoagulation (Chronic) Chronic atrial fibrillation (Chronic) Altered mental status (Acute) Leukocytosis (Chronic) Symptoms of cerebrovascular accident (CVA) (Acute) Atrial fibrillation (Acute) RSD (reflex sympathetic dystrophy) (Chronic) Social History Feels Safe at Home: Yes Smoking Status: Never smoker Review of Systems Review of Systems: All systems reviewed & are unremarkable except as noted in HPI & below Neurologic: + abnormal speech and + confusion Physical Exam Constitutional: WD/WN, vitals as above Eyes: PERRL, conjunctivae normal, anicteric sclerae ENMT: external ear and nose normal, oropharynx normal Neck: trachea midline, no thyromegaly Respiratory: normal respiratory effort, lungs clear to auscultation Cardiovascular: Rate/Rhythm: + irregularly irregular Heart Sounds: normal S1 and normal S2 Gastrointestinal (Abdomen): normal bowel sounds, soft, nontender, no hepatosplenomegaly Musculoskeletal: no cyanosis or clubbing, extremities motor strength 5/5 Skin: Bruising noted on the left upper extremity a small area on the right lateral rib cage and right lateral thigh area although she denies falling down Neurologic: deep tendon reflexes 2+ bilaterally, moves all extremities and + confused; no meningeal signs Speech / Cognition: + abnormal speech (Very mildly dysarthric) Coordination: normal [id number] test and normal tduk-ij-[id number] test Results & Data Vital Signs (Past 12 Hours) Vital Signs Temp Pulse Resp BP Pulse Ox 05/02/19 12:15 68 19 173/82 H 95 05/02/19 12:03 70 16 05/02/19 11:30 66 05/02/19 11:10 73 05/02/19 10:48 67 18 97 05/02/19 10:46 68 15 171/81 H 97 05/02/19 10:11 36.6 C 70 18 147/83 H 99 Laboratory Results 05/02/19 10:32 05/02/19 10:32 (1) Leukocytosis Leukocytosis type: unspecified Qualified Code(s): D72.829 - Elevated white blood cell count, unspecified (2) Altered mental status Altered mental status type: unspecified Qualified Code(s): R41.82 - Altered mental status, unspecified
--- NOTE | 2019-05-02 21:29 | History & Physical Report ---
Date of Service May 02, 2019 Assessment & Plan (1) Symptoms of cerebrovascular accident (CVA): Very mild dysarthria and confusion. Head CT scan negative. Brain MRI/MRA pending. Consult neurology. Start aspirin therapy and statin therapy. Present on Admission?: Yes (2) Leukocytosis: This appears to be chronic after reviewing previous labs. Will follow Present on Admission?: Yes (3) Altered mental status: She is mildly confused. No source of infection noted despite elevated white blood cell count which appears to be chronic. Present on Admission?: Yes (4) Chronic atrial fibrillation: Controlled rate with metoprolol. Telemetry. Cardiac echo Present on Admission?: Yes (5) Warfarin anticoagulation: She apparently has not taken her Coumadin for several days. INR is only 1.2. She will be treated with Lovenox until INR is therapeutic. Present on Admission?: Yes (6) DVT prophylaxis: Continue Coumadin although she is subtherapeutic. Lovenox subcu until INR is therapeutic Present on Admission?: Yes History of Present Illness Chief Complaint: Mild dysarthria, confusion Primary Care Provider: SERGEILeland 84-year-old female who has had some confusion and dysarthria for possibly 1 week. Her daughter noticed this yesterday but stated she has not been in contact with her mother for nearly 1 week. She brought her to the ED for evaluation. She has chronic leukocytosis but no fever. She probably did not take her medication for several days. INR is 1.2. Chest x-ray is negative. Head CT scan is negative. Lumbar puncture was done and CSF studies are pending. She probably has suffered a CVA causing her current symptoms. She has chronic atrial fibrillation and is on chronic warfarin therapy. She is admitted for further evaluation and treatment. Allergies Allergy/AdvReac Type Severity Reaction Status Date / Time hydrocodone Allergy Intermediate RASH Verified 05/02/19 16:18 oxycodone Allergy Intermediate RASH Verified 05/02/19 16:18 sertraline Allergy Intermediate RASH- Verified 05/02/19 16:18 TAKES PAXIL W/O PROBLEM adhesive Allergy Mild SOME Verified 05/02/19 11:24 TAPES- RED SKIN naproxen AdvReac Mild HEADACHES Verified 05/02/19 16:18 Home Medications Home Medications Medication Instructions Recorded Confirmed Type digoxin 250 mcg PO DAILY 05/02/19 05/02/19 History gabapentin 100 mg PO TID 05/02/19 05/02/19 History loteprednol etabonate [Lotemax] 1 drp OPB DAILY 05/02/19 05/02/19 History metoprolol tartrate 12.5 mg PO DAILY 05/02/19 05/02/19 History paroxetine HCl 5 mg PO DAILY 05/02/19 05/02/19 History timolol maleate 1 drp OPB BID 05/02/19 05/02/19 History warfarin [Jantoven] 1.25 mg PO DIRECTED 05/02/19 05/02/19 History Past Med/Surg History Medical History DVT prophylaxis Warfarin anticoagulation (Chronic) Chronic atrial fibrillation (Chronic) Altered mental status (Acute) Leukocytosis (Chronic) Symptoms of cerebrovascular accident (CVA) (Acute) Atrial fibrillation (Acute) RSD (reflex sympathetic dystrophy) (Chronic) Social History Preferred Language: Moldovan Communication Ability: Impaired Communication Ability Comment: Having some expressive aphasia, no receptive aphagia apparent Personal Care Attendant Required: No Beliefs That Will Affect Care: Caodaism Caodaism Beliefs: Jabari Current Living Situation: Alone Current Living Situation Comment: lives at [facility] in an independent living apartment Other Information That Helps Us Care for You: No Feels Safe at Home: Yes Safety Concerns: Feels Safe At This Time Smoking Status: Former smoker Do You Dip or Chew Tobacco: No Smoking End Date: quit in 1949 Second Hand Exposure: No Hx Alcohol Use: No Hx Substance Use: No Review of Systems Review of Systems: All systems reviewed & are unremarkable except as noted in HPI & below Neurologic: + abnormal speech and + confusion Mild dysarthria. Some confusion. No focal motor deficits Physical Exam Constitutional: WD/WN, vitals as above Eyes: PERRL, conjunctivae normal, anicteric sclerae ENMT: external ear and nose normal, oropharynx normal Neck: trachea midline, no thyromegaly Respiratory: normal respiratory effort, lungs clear to auscultation Cardiovascular: Rate/Rhythm: + irregularly irregular Heart Sounds: normal S1 and normal S2 Gastrointestinal (Abdomen): normal bowel sounds, soft, nontender, no hepatosplenomegaly Musculoskeletal: no cyanosis or clubbing, extremities motor strength 5/5 Skin: no rashes, warm and dry Neurologic: deep tendon reflexes 2+ bilaterally, moves all extremities and + confused; no focal motor deficits Mildly dysarthric Results & Data Vital Signs (Past 12 Hours) Vital Signs Temp Pulse Resp BP BP Pulse Ox 05/02/19 18:30 131/74 05/02/19 16:09 36.5 C 20 176/100 H 95 05/02/19 15:39 72 21 156/89 H 05/02/19 15:30 66 12 05/02/19 15:00 76 15 05/02/19 14:30 79 14 05/02/19 14:21 24 05/02/19 12:31 65 14 189/84 H 96 05/02/19 12:30 71 18 96 05/02/19 12:16 68 19 95 05/02/19 12:15 68 19 173/82 H 95 05/02/19 12:03 70 16 05/02/19 11:30 66 05/02/19 11:10 73 05/02/19 10:48 67 18 97 05/02/19 10:46 68 15 171/81 H 97 05/02/19 10:11 36.6 C 70 18 147/83 H 99 (1) Leukocytosis Leukocytosis type: unspecified Qualified Code(s): D72.829 - Elevated white blood cell count, unspecified (2) Altered mental status Altered mental status type: unspecified Qualified Code(s): R41.82 - Altered mental status, unspecified
[2019-05-03 05:52] LABS: Hematocrit (blood only) 43.1 % (37-47); Hemoglobin 14.9 g/dL (12.0-16.0); Mean Corpuscular Hgb Conc 34.6 g/dL (32-36); Mean Corpuscular Volume 93.5 fL (80-100); Mean Platelet Volume 10.6 fL (7.4-10.4); Platelet Count 150 K/uL (130-400); RDW Coefficient of Variation 12.7 % (11.5-14.5); RDW Standard Deviation 43.2 fL (36.4-46.3); Red Blood Count 4.61 M/uL (4.2-5.4); White Blood Count 18.06 K/uL (4.8-10.8)
[2019-05-03] MEDS: SODIUM CHLORIDE 0.9% 1000ML 1,000 ML IV SCH ×2 (05:59→19:53)
[2019-05-03 06:06] LABS: INR 1.3 (0.9-1.1)
[2019-05-03 06:25] LABS: BUN Creatinine Ratio 14.3 (10-20); Calcium 8.1 mg/dl (8.5-10.1); Creatinine Clr Calc Pharmacy 49.9 ml/min; Est GFR (Non-African American) 74.2; Potassium 3.9 mmol/L (3.5-5.1)
[2019-05-03 06:40] LABS: Basophils # (auto) 0.02 K/uL (0-0.2); Basophils % (auto) 0.1 %; Eosinophils % (auto) 0.6 %; Immature Granulocytes # (auto) 0.03 K/uL (0.00-0.02); Immature Granulocytes % (auto) 0.2 %; Lymphocytes % (auto) 75.3 %; Monocytes # (auto) 1.05 K/uL (0.11-0.59); Monocytes % (auto) 5.8 %; Neutrophils # (auto) 3.26 K/uL (1.4-6.5); Smudge Cells Present
[2019-05-03] MEDS: PARoxetine HCl 10 MG TAB PO SCH (07:51)
[2019-05-03] MEDS: ASPIRIN 81 MG ECTAB PO SCH (07:51)
[2019-05-03] MEDS: GABAPENTIN 100 MG CAP PO SCH ×3 (07:51→21:05)
[2019-05-03] MEDS: ATORVASTATIN 40 MG TAB PO SCH (07:51)
[2019-05-03] MEDS: LOTEMAX 0.5% OP SCH (07:52)
[2019-05-03] MEDS: TIMOLOL GFS 0.5% OPH SOLN 74 DROPS/5 ML BTL OPB SCH ×2 (07:53→21:11)
[2019-05-03] MEDS ORDERED: METOPROLOL TARTRATE 25 MG TAB PO SCH (09:00)
[2019-05-03] MEDS ORDERED: LOTEPREDNOL ETABONATE OPB SCH (09:00)
--- NOTE | 2019-05-03 09:41 | Neurology Consultation ---
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 Atrial fibrillation with recent noncompliance with warfarin likely causative. Case discussed with Dr. Duran. Would recommend restarting anticoagulation potentially with a newer oral anticoagulant such as Eliquis or Xarelto. Risk of hemorrhagic transformation of the small subacute/acute infarcts is low. Patient will also need PT/OT/speech therapy. Avoid aggressive reduction in blood pressure. Atorvastatin is probably okay as she does have moderately extensive chronic small vessel ischemic change on her MRI. However, she does not have any findings suggestive of significant atherosclerotic disease of the neck or cranial vessels on MRA and her lipid panel appears favorable other than a low HDL. The benefit of starting a statin in this patient's case is not entirely clear. I do not have any further immediate recommendations for this patient. Please contact me if I may be of further assistance. History of Present Illness Reason for Consultation: Stroke Requesting Physician: Connor Ambriz MD Attending Physician: Ryan Duran MD History of Present Illness The patient is an 84-year-old female with a chief complaint of word finding difficulty which began the day prior to her assessment in the emergency department. She reports that she had not been feeling well for several days and had not taken her medications which include warfarin in light of her history of atrial fibrillation. Her word finding difficulty has been a persistent problem and is of mild to moderate severity. The difficulty was noted the day prior to her emergency department assessment as above with the onset probably acute but occurring in the context of not feeling well for at least a few days. She denies experiencing any significant headache, vision disturbance, weakness of the limbs, or sensory loss. Additional details as below. Family history noncontributory Allergies Allergy/AdvReac Type Severity Reaction Status Date / Time hydrocodone Allergy Intermediate RASH Verified 05/02/19 16:18 oxycodone Allergy Intermediate RASH Verified 05/02/19 16:18 sertraline Allergy Intermediate RASH- Verified 05/02/19 16:18 TAKES PAXIL W/O PROBLEM adhesive Allergy Mild SOME Verified 05/02/19 11:24 TAPES- RED SKIN naproxen AdvReac Mild HEADACHES Verified 05/02/19 16:18 Home Medications Home Medications Medication Instructions Recorded Confirmed Type digoxin 250 mcg PO DAILY 05/02/19 05/02/19 History gabapentin 100 mg PO TID 05/02/19 05/02/19 History loteprednol etabonate [Lotemax] 1 drp OPB DAILY 05/02/19 05/02/19 History metoprolol tartrate 12.5 mg PO DAILY 05/02/19 05/02/19 History paroxetine HCl 5 mg PO DAILY 05/02/19 05/02/19 History timolol maleate 1 drp OPB BID 05/02/19 05/02/19 History warfarin [Jantoven] 1.25 mg PO DIRECTED 05/02/19 05/02/19 History Patient History Medical History DVT prophylaxis Warfarin anticoagulation (Chronic) Chronic atrial fibrillation (Chronic) Altered mental status (Acute) Leukocytosis (Chronic) Symptoms of cerebrovascular accident (CVA) (Acute) Atrial fibrillation (Acute) RSD (reflex sympathetic dystrophy) (Chronic) Social History Preferred Language: Ukrainian Communication Ability: Impaired Communication Ability Comment: Having some expressive aphasia, no receptive aphagia apparent Account Officer Required: No Beliefs That Will Affect Care: Roman Catholic Roman Catholic Beliefs: Jabari Current Living Situation: Alone Current Living Situation Comment: lives at [facility] in an independent living apartment Other Information That Helps Us Care for You: No Feels Safe at Home: Yes Safety Concerns: Feels Safe At This Time Smoking Status: Former smoker Do You Dip or Chew Tobacco: No Smoking End Date: quit in 1949 Second Hand Exposure: No Hx Alcohol Use: No Hx Substance Use: No Review of Systems Constitutional: no fever and no chills Eyes: no blind spots and no diplopia Ear, Nose, Mouth, Throat: no hearing loss Respiratory: no cough and no dyspnea Cardiovascular: no chest pain and no palpitations Gastrointestinal: no nausea and no vomiting Genitourinary: no dysuria Musculoskeletal: no myalgia Integumentary: no rash and no lesions Neurologic: as per Subjective / HPI Psychiatric: no depression and no anxiety Hematologic / Lymphatic: no easy bleeding Physical Exam Physical Exam: The patient is a well-developed, well-nourished elderly female. She is alert and fully oriented. Recent and remote memory intact. Attention and concentration normal. Patient exhibits mild difficulty with object naming and phrase repetition. She is able to read text without much difficulty. Patient exhibits an age-appropriate fund of knowledge and normal vocabulary. Her speech is mildly hesitant. Visual espinoza full to confrontation. Visual acuity normal. Pupils equal round reactive to light and accommodation. Eye movements normal. Facial sensation intact. There is no facial droop or weakness. Hearing intact. Palate elevates to midline. Shoulder shrug intact. Tongue protrudes to midline. Sensation intact to all modalities in all 4 limbs. There is mild hypersensitivity of the left foot to light touch (history of RSD). Deep tendon reflexes are intact and symmetrical. Plantar responses upgoing for the right foot, downgoing for the left foot. Deep tendon reflexes are intact and symmetrical for the arms and legs. There is no dysdiadochokinesia or dysmetria cmjuun-[id number] or [id number] bilaterally. Ophthalmoscopic examination reveals normal-appearing optic disks and posterior segments. No papilledema or hemorrhages. Carotid pulses normal bilaterally, no bruits to auscultation. Gait and station not tested due to safety concerns. Patient exhibits normal muscle strength and tone for all 4 limbs. No hemiplegia. No atrophy. No abnormal movements observed. Results & Data Vital Signs (Past 12 Hours) Vital Signs Temp Pulse Resp BP BP Pulse Ox 05/03/19 07:54 36.5 C 101 H 18 156/84 H 94 05/03/19 03:11 36.7 C 75 14 187/93 H 177/81 H 98 05/02/19 23:20 36.8 C 73 14 163/80 H 97 Laboratory Results Recent labs reviewed. WBC 18.06, hemoglobin 14.9, platelet count 150, INR 1.3, sodium 139, potassium 3.9, BUN 11, creatinine 0.75, glucose 77, calcium 8.1, triglycerides 81, cholesterol 139, LDL 94, VLDL 16, HDL 29 A lumbar puncture was also completed. CSF clear, colorless, no xanthochromia. WBC 0, RBC 62, glucose 56, protein 36.4, CSF Gram stain unremarkable Diagnostic Findings A CT of the head completed yesterday revealed patchy white matter hypodensities likely on a small vessel basis, progressive compared with the previous study done in January 2015. No evidence of hemorrhage or acute process. Images and report reviewed. An MRI of the brain completed yesterday revealed multiple small foci of restri cted diffusion within the left hemisphere consistent with acute/subacute infarcts with involvement of the left occipital, temporal, left frontal, and parietal lobes. There is moderately extensive white matter disease likely in a small vessel basis as well. Images and report reviewed. Agree with the radiologist's assessment. MRA of the head unremarkable. MRA of the neck unremarkable. Electrocardiogram completed yesterday revealed atrial fibrillation, 68 bpm.
--- NOTE | 2019-05-03 14:03 | Hospitalist Progress Note ---
Date of Service May 03, 2019 Assessment & Plan (1) Symptoms of cerebrovascular accident (CVA): Very mild dysarthria and confusion. Head CT scan negative. Brain MRI/MRA shows likely embolic subacute strokes. MRA does not show any significant vascular lesions. Start aspirin therapy and statin therapy. Formal anti- coagulation for atrial fibrillation will be undertaken (2) Leukocytosis: This appears to be chronic after reviewing previous labs. No evidence of culture positive or focal clinical signs of infection (3) Altered mental status: Since encephalopathy was likely based upon the transient issue from her embolic stroke this is now resolved (4) Chronic atrial fibrillation: Controlled rate with metoprolol. Likely some mild diastolic dysfunction, no significant valvular heart disease, initiation of dose adjusted Eliquis will be undertaken given the patient's over 80 and under 60 kg (5) Warfarin anticoagulation: She apparently has not taken her Coumadin for several days. INR is only 1.2. She will be instituted on Eliquis therapy (6) DVT prophylaxis: Eliquis therapy Subjective Patient is return completely back to her baseline she is no speech or gross motor problems. Her daughter is at the bedside and updated. Review of Systems Review of Systems: ROS: well nourished well developed. No double vision blurry vision No problems with speech or swallowing No palpitations, chest pain or pressure No Wheezing or breathing issues No abdominal pain nausea vomiting diarrhea changes in appetite or weight No burning urine urine frequency or changes in color No focal joint pain or muscle pain No skin rashes or oral lesions No unusual bruising or bleeding No focused back pain or numbness or loss of strength No changes in memory or confusion Physical Exam Physical Exam: The patient appeared well nourished and normally developed. Vital signs as documented. Head exam is unremarkable. normocephalic, atraumatic Neck is without jugular venous distension, thyromegaly, or lymphademopathy Lungs are clear to auscultation and percussion. Cardiac exam reveals rate controlled irregularly irregular rhythm without audible murmurs Abdominal exam reveals normal bowel sounds, no masses, no organomegaly Extremities are nonedematous and both pedal pulses are present Neurologic exam is A&Ox3, no focal deficits, strength is equal bilateral Psychologically seems neither anxious or depressed Skin is warm Dry without bruises or lesions Results & Data Vital Signs (Past 12 Hours) Vital Signs Temp Pulse Resp BP BP Pulse Ox 05/03/19 11:57 36.7 C 77 18 156/82 H 93 05/03/19 07:54 36.5 C 101 H 18 156/84 H 94 05/03/19 03:11 36.7 C 75 14 187/93 H 177/81 H 98 (1) Leukocytosis Leukocytosis type: unspecified Qualified Code(s): D72.829 - Elevated white blood cell count, unspecified (2) Altered mental status Altered mental status type: unspecified Qualified Code(s): R41.82 - Altered mental status, unspecified
[2019-05-03] MEDS ORDERED: DIGOXIN 0.25 MG TAB PO SCH (16:00)
[2019-05-03] MEDS: METOPROLOL TARTRATE 25 MG TAB PO SCH (21:06)
[2019-05-03] MEDS: APIXABAN 2.5 MG TAB PO SCH (21:08)
[2019-05-04 05:53] LABS: Hematocrit (blood only) 41.7 % (37-47); Hemoglobin 14.2 g/dL (12.0-16.0); Mean Corpuscular Hgb Conc 34.1 g/dL (32-36); Mean Corpuscular Volume 93.9 fL (80-100); Mean Platelet Volume 10.8 fL (7.4-10.4); Platelet Count 145 K/uL (130-400); RDW Coefficient of Variation 12.7 % (11.5-14.5); RDW Standard Deviation 43.7 fL (36.4-46.3); Red Blood Count 4.44 M/uL (4.2-5.4); White Blood Count 16.16 K/uL (4.8-10.8)
[2019-05-04 06:00] LABS: INR 1.3 (0.9-1.1); Prothrombin Time 13.1 Seconds (9.0-12.0)
[2019-05-04 06:10] LABS: Estimated Average Glucose 126 mg/dl
[2019-05-04 06:27] LABS: BUN Creatinine Ratio 17.3 (10-20); Calcium 8.3 mg/dl (8.5-10.1); Est GFR (African American) 82.1; Est GFR (Non-African American) 70.8; Potassium 4.2 mmol/L (3.5-5.1)
[2019-05-04 07:09] LABS: Basophils # (auto) 0.03 K/uL (0-0.2); Basophils % (auto) 0.2 %; Eosinophils # (auto) 0.24 K/uL (0-0.5); Eosinophils % (auto) 1.5 %; Immature Granulocytes # (auto) 0.02 K/uL (0.00-0.02); Immature Granulocytes % (auto) 0.1 %; Lymphocytes # (auto) 12.61 K/uL (1.2-3.4); Monocytes # (auto) 0.92 K/uL (0.11-0.59); Monocytes % (auto) 5.7 %; Neutrophils # (auto) 2.34 K/uL (1.4-6.5); Neutrophils % (auto) 14.5 %; Smudge Cells Present
[2019-05-04] MEDS: SODIUM CHLORIDE 0.9% 1000ML 1,000 ML IV SCH (09:18)
[2019-05-04] MEDS: APIXABAN 2.5 MG TAB PO SCH (09:27)
[2019-05-04] MEDS: ATORVASTATIN 40 MG TAB PO SCH (09:27)
[2019-05-04] MEDS: ASPIRIN 81 MG ECTAB PO SCH (09:27)
[2019-05-04] MEDS: METOPROLOL TARTRATE 25 MG TAB PO SCH (09:27)
[2019-05-04] MEDS: GABAPENTIN 100 MG CAP PO SCH ×2 (09:28→14:10)
[2019-05-04] MEDS: PARoxetine HCl 10 MG TAB PO SCH (09:28)
[2019-05-04] MEDS: LOTEMAX 0.5% OP SCH (09:29)
[2019-05-04] MEDS: TIMOLOL GFS 0.5% OPH SOLN 74 DROPS/5 ML BTL OPB SCH (09:36)
[2019-05-04] MEDS ORDERED: STROKE PATIENT DISCHARGE STA (13:39)
--- NOTE | 2019-05-04 15:09 | Pharmacy Report ---
Pharmacist Stroke Counseling - Date of Service May 04, 2019 - Scope: Pharmacy has been consulted to provide medication discharge counseling for this patient admitted with ischemic stroke as per the Pharmacist Discharge Counseling for Stroke Patients Protocol. - Medications on Discharge: Home Medications Medication Instructions Recorded Confirmed digoxin 250 mcg PO DAILY 05/02/19 05/02/19 gabapentin 100 mg PO TID 05/02/19 05/02/19 loteprednol etabonate [Lotemax] 1 drp OPB DAILY 05/02/19 05/02/19 metoprolol tartrate 12.5 mg PO DAILY 05/02/19 05/02/19 paroxetine HCl 5 mg PO DAILY 05/02/19 05/02/19 timolol maleate 1 drp OPB BID 05/02/19 05/02/19 New Rx's Medication Instructions Recorded apixaban [Eliquis] 5 mg PO BID #60 tab 05/04/19 aspirin [Ecotrin Low Strength] 81 mg PO QAM #0 tab 05/04/19 atorvastatin 40 mg PO QAM #30 tab 05/04/19 - Action: The above medications, specifically ones for stroke treatment/prophylaxis, have been reviewed in detail with the patient and/or patient arborist representative(s) prior to discharge. This includes indication, common adverse reactions, drug interactions, and medication administration. Medication counseling has been employed using the teach-back method to ensure understanding. - Outcome: The patient and/or patient arborist representative(s) have demonstrated understanding of the medications. Please note, they are aware that the pharmacist will call them within 72 hours post-discharge to confirm that the appropriate medications are being taken and answer any further medication related questions the patient might have at that time. Contact information Individual to be contacted: Patient or daughter (Sho) Phone number: [phone] or [phone] (daughter) Best time to call: anytime Additional comments: * Noticed that Eliquis dosing was based upon previous incorrect weight of < 60 kg and multiple weights in computer were closer to [address] Sa gustafson and had Eliquis changed to 5 mg BID since patient only meets 1 criteria for reduced dosing. * Reviewed 3 new medications in detail with patient. She is aware to stay away from NSAIDs for pain control, only take APAP if needed. She is also aware to stop her warfarin. * When reviewing metoprolol with patient, daughter thought she may take a half tab BID, which would be more appropriate for the tartrate dosing. They were told to take what is on her prescription bottle and we could confirm with her when we do the f/u phone call. * Patient lives at [facility] but is part of independent living Thank you for allowing pharmacy to be involved in the care of this patient. Please call [phone] or [phone] with any additional questions
--- NOTE | 2019-05-06 11:23 | Pharmacy Report ---
Pharmacist Post D/C Phone Note - Phone Note: Date of phone call: May 06, 2019. Individual with whom pharmacist spoke to: PAULA FLEMING The patient and/or patient technical services representative(s) were unable to be reached for a follow-up phone call within the 72 hour time frame. Discharge counseling pharmacist contact information has already been provided to the patient should questions arise. Thank you for allowing us to be involved in the care of this patient. - Home Medications: Home Medications Medication Instructions Recorded Confirmed digoxin 250 mcg PO DAILY 05/02/19 05/02/19 gabapentin 100 mg PO TID 05/02/19 05/02/19 loteprednol etabonate [Lotemax] 1 drp OPB DAILY 05/02/19 05/02/19 metoprolol tartrate 12.5 mg PO DAILY 05/02/19 05/02/19 paroxetine HCl 5 mg PO DAILY 05/02/19 05/02/19 timolol maleate 1 drp OPB BID 05/02/19 05/02/19 New Rx's Medication Instructions Recorded apixaban [Eliquis] 5 mg PO BID #60 tab 05/04/19 aspirin [Ecotrin Low Strength] 81 mg PO QAM #0 tab 05/04/19 atorvastatin 40 mg PO HS #30 tab 05/04/19 atorvastatin 40 mg PO QAM #30 tab 05/04/19
[2019-05-07 01:38] LABS: Lyme DNA Source CSF
--- NOTE | 2019-05-13 07:43 | Discharge Summary ---
Date of Service May 04, 2019 Admission HPI Per Admitting Provider 84-year-old female who has not been feeling well for about 1 week. Her daughter saw her yesterday and noticed altered mental status and mild dysarthria. This probably has been going on for nearly 1 week. She was brought to the ED for evaluation. White blood cell is elevated but has been chronically elevated. Head CT scan is unremarkable. Lumbar puncture was done and CSF studies are pending. Chest x-ray negative. No UTI. She is mildly dysarthric on examination but no other focal motor deficits. She is mildly confused. I suspect she has had a small CVA. Apparently she has not taken her medication for 1 or 2 days and her INR on Coumadin is only 1.2. She has chronic atrial fibrillation. She will be admitted for further evaluation and treatment along with neurological consultation. Brain MRI/MRA has been ordered Principal Diagnosis Acute Tromboembolic stroke Discharge Exam The patient appeared well nourished and normally developed. Vital signs as documented. Head exam is unremarkable. normocephalic, atraumatic Neck is without jugular venous distension, thyromegaly, or lymphademopathy Lungs are clear to auscultation and percussion. Cardiac exam reveals rate controlled irregularly irregular rhythm without audible murmurs Abdominal exam reveals normal bowel sounds, no masses, no organomegaly Extremities are nonedematous and both pedal pulses are present Neurologic exam is A&Ox3, no focal deficits, strength is equal bilateral Psychologically seems neither anxious or depressed Skin is warm Dry without bruises or lesions Discharge Data Allergies Allergy/AdvReac Type Severity Reaction Status Date / Time hydrocodone Allergy Intermediate RASH Verified 05/02/19 16:18 oxycodone Allergy Intermediate RASH Verified 05/02/19 16:18 sertraline Allergy Intermediate RASH- Verified 05/02/19 16:18 TAKES PAXIL W/O PROBLEM adhesive Allergy Mild SOME Verified 05/02/19 11:24 TAPES- RED SKIN naproxen AdvReac Mild HEADACHES Verified 05/02/19 16:18 Consultations 05/02/19 14:08 ED Decision to Admit Stat 05/02/19 16:09 Consult Case Management - Discharge Planning Routine Consult Neurology Routine Ordered Studies 05/02/19 10:54 CT head/brain wo con Stat 05/02/19 16:09 MR angio head wo con Routine MR angio neck wo/w con Routine MR brain wo con Routine Hospital Course (1) Symptoms of cerebrovascular accident (CVA): Very mild dysarthria and confusion. Head CT scan negative. Brain MRI/MRA shows likely embolic subacute strokes. MRA does not show any significant vascular lesions. Start aspirin therapy and statin therapy. Formal anti- coagulation for atrial fibrillation will be undertaken. On day of discharge, Patient was switched to Eliquis and given a 30 day coupon. If eliquis is too expensive for patient may glen to switch to a different NOAC. At this time, warfarin does not appear to be a good option as INR was subtherapeutic and patient had a stroke. Patient can be discharged home as she did well with inpatient PT. (2) Leukocytosis: This appears to be chronic after reviewing previous labs. No evidence of culture positive or focal clinical signs of infection (3) Altered mental status: Since encephalopathy was likely based upon the transient issue from her embolic stroke this is now resolved (4) Chronic atrial fibrillation: Controlled rate with metoprolol. Likely some mild diastolic dysfunction, no significant valvular heart disease, initiation of dose adjusted Eliquis will be undertaken given the patient's over 80 and under 60 kg (5) Warfarin anticoagulation: She apparently has not taken her Coumadin for several days. INR is only 1.2. She will be instituted on Eliquis therapy (6) DVT prophylaxis: Eliquis therapy Total Time Total Time Spent Total Time Spent (In Minutes): 32 Total Time Includes: Examination of the Patient, Discharge Planning and Medication Reconciliation Discharge Plan Discharge Items Patient Disposition: Personal Custodial Reason For Visit: SUSPECTED CVA Discharge Diagnosis: Subacute stroke Discharge Goals: Decrease discomfort Activity: Resume your previous activity Non-emergency contact: Primary Care Provider Call non-emergency contact if: you have any medication questions Follow-up/Referrals: AGUEDA, [Primary Care Provider] - (Please follow up with your PCP within 7 days.) Diet: Heart Healthy Addtl Provider Instructions: You were found to have a stroke. You will be placed on a new anticoagulant that will replace coumadin. You no longer need to have tests done to check on thin your blood is. Will have you placed on elquis. Physical therapy saw you and you agree that you don't need further assistance at home. Prescriptions: New atorvastatin 40 mg Tablet 40 mg PO QAM Qty: 30 RF: 0 aspirin [Ecotrin Low Strength] 81 mg Tablet,Delayed Release (Dr/Ec) 81 mg PO QAM Qty: 0 RF: 0 Eliquis 5 mg tablet 5 mg PO BID Qty: 60 RF: 0 atorvastatin 40 mg tablet 40 mg PO HS Qty: 30 RF: 0 Continued paroxetine HCl 10 mg tablet 5 mg PO DAILY RF: 0 digoxin 250 mcg tablet 250 mcg PO DAILY RF: 0 timolol maleate 0.25 % drops 1 drp OPB BID RF: 0 gabapentin 100 mg capsule 100 mg PO TID RF: 0 loteprednol etabonate [Lotemax] 0.5 % drops,suspension 1 drp OPB DAILY RF: 0 metoprolol tartrate 25 mg tablet 12.5 mg PO DAILY RF: 0 Discontinued warfarin [Jantoven] 2.5 mg tablet 1.25 mg PO DIRECTED RF: 0 Stand-Alone Forms: Medications to Prevent Stroke, [facility] Discharge Orders: Discharge Order (Routine); Ordered 05/04/19 Ordered By: Adi Gardner Admission Data Admit Date/Time: 05/02/19 14:44 Attending Provider: Adi Gardner Admit Provider: Connor Ambriz Primary Care Provider: AGUEDA Other Providers: Stanislav Landry Service: Telemetry Other Interventions: Discharge Summary Assessment (RN) Last Done: 05/04/19 15:06 DC Date/Time DO NOT enter until pt leaves facility: 05/04/19 15:25
== END 2019-05-04 15:25 | disposition home or self-care (01) | DRG 65 ==
LOC: ED 10:01 → SUATTDRO 14:44 → 2S 14:44
DX: R29.702 NIHSS score 2; I48.2 Chronic atrial fibrillation; R47.01 Aphasia; T45.516A Underdosing of anticoagulants, initial encounter; Z79.899 Other long term (current) drug therapy; Z88.6 Allergy status to analgesic agent; Z88.8 Allergy status to other drugs, medicaments and biological substances; Z91.048 Other nonmedicinal substance allergy status; D72.829 Elevated white blood cell count, unspecified; Z79.01 Long term (current) use of anticoagulants; R47.1 Dysarthria and anarthria; I63.89 Other cerebral infarction; Z91.128 Patient's intentional underdosing of medication regimen for other reason; G93.40 Encephalopathy, unspecified; Z88.5 Allergy status to narcotic agent

== ENCOUNTER 2020-10-21 12:44 | Inpatient (IN) ==
[2020-10-21 14:12] LABS: Albumin Level 3.2 gm/dl (3.4-5.0); BUN Creatinine Ratio 15.4 (10-20); Calcium 9.7 mg/dl (8.5-10.1); Creatinine Clr Calc Pharmacy 16.4 ml/min; Est GFR (African American) 19.8; Est GFR (Non-African American) 17.1; Potassium 5.2 mmol/L (3.5-5.1)
[2020-10-21 14:15] LABS: Albumin Globulin Ratio 0.8 (0.9-2); Bilirubin,Total 0.8 mg/dl (0.2-1); Globulin 3.8 gm/dl (2.5-4.0); Hematocrit (blood only) 35.7 % (37-47); Hemoglobin 10.5 g/dL (12.0-16.0); Mean Corpuscular Hemoglobin 24.7 pg (25-34); Mean Corpuscular Hgb Conc 29.4 g/dL (32-36); Mean Platelet Volume 10.1 fL (7.4-10.4); Platelet Count 416 K/uL (130-400); RDW Coefficient of Variation 19.9 % (11.5-14.5); RDW Standard Deviation 59.8 fL (36.4-46.3); Red Blood Count 4.25 M/uL (4.2-5.4); White Blood Count 37.95 K/uL (4.8-10.8)
--- NOTE | 2020-10-21 14:50 | Emergency Department Note ---
Impression & Plan TAMY (acute kidney injury), Weakness, Leukocytosis, Anemia ED Provider Note NAME: PAULA FLEMING AGE: 85 SEX: F : 1935 ARRIVES VIA: Walk-In INFORMANT: Patient ED PROVIDER(S): Vince Coyle DO CHIEF COMPLAINT: Weakness, abdominal distention intermittent vomiting HPI: Patient is an 85-year-old female who lives at the [place] who presents to the ER for distention in her abdomen. Her daughter noted this yesterday. She has had some intermittent episodes of dry heaving but nothing today. Believes her last bowel movement was yesterday. Denies any chest pain or shortness of breath. Has been taking her Eliquis and has not missed any doses. History of appendectomy and partial hysterectomy. Had a CVA recently which has affected her short-term memory. Denies any dysuria urgency or frequency. No other exacerbating or remitting factors. No pain. ROS: See above HPI for pertinent positives & negatives. A total of 10 systems reviewed and were otherwise negative. PAST MEDICAL HISTORY:See Below PAST SURGICAL HISTORY:See Below FAMILY HISTORY:See Below SOCIAL HISTORY:See Below HOME MEDICATIONS:See Below ALLERGIES:See Below VITALS:See Below PHYSICAL EXAMINATION: GENERAL: Sitting up in bed, alert, conically ill-appearing, no acute distress, nontoxic EYE EXAM: normal conjunctiva. OROPHARYNX: no exudate, no erythema, lips, buccal mucosa, and tongue normal and mucous membranes are moist NECK: supple, no nuchal rigidity, no adenopathy, non-tender LUNGS: Clear to auscultation. Normal chest wall mechanics HEART: no murmurs, S1 normal and S2 normal ABDOMEN: abdomen soft but distended, non-tender, normo-active bowel sounds, no masses, no rebound or guarding. BACK: Back is symmetrical on inspection and there is no deformity, no midline tenderness, no CVA tenderness. SKIN: no rashes and no bruising UPPER EXTREMITIES: upper extremities are grossly normal. LOWER EXTREMITIES: Calves are equal bilaterally with pitting edema tracking up to abdomen NEURO EXAM: Normal sensorium, cranial nerves II-XII grossly intact, normal speech, no gross weakness of arms, no gross weakness of legs. MEDICAL DECISION MAKING: Patient is an 85-year-old female who presents the ER for swelling in the lower extremities up into her abdomen. She has felt full. She does have a history of short-term memory loss. IV was established blood work was obtained. Labs show leukocytosis of 37,000. Mild anemia 10.5. BMP with mild hyponatremia at 133. Mild hyperkalemia 5.2. Creatinine was elevated at 2.5 up from a baseline of 0.7. LFTs bilirubin was unremarkable. Troponin was detectable but not +0.027. Lipase was normal. Covid was negative. Chest x-ray suggest pleural effusion. CT abdomen pelvis confirms effusions along with a large amount of ascites and a questionable peritoneal carcinomatosis. Patient and daughter were updated at bedside. Discussed with hospitalist for further evaluation. Triage Nursing notes reviewed. Prior medical records reviewed Vital Signs: reviewed and remarkable for no significant abnormalities Differential diagnosis: Differential diagnoses includes but is not limited to gastritis, peptic ulcer disease, GERD, gallbladder disease, pancreatitis, small bowel obstruction, acute coronary syndrome, pericarditis, ischemic bowel, irritable bowel disease, irritable bowel syndrome, appendicitis, diverticulitis, malignancy, hernia, urinary tract infection, torsion, perforation, trauma, infectious. ER treatment provided: See below Diagnostics interpreted by me: ECG: A. fib rate of 67 Normal axis Low voltage T WI in the inferior leads as well as the anterior leads QTC 338 Cardiac Monitoring: An order was placed for continuous cardiac monitoring. The monitor shows a rate of 70 with afib rhythm. Laboratory studies: As stated above and show below. Imaging studies: CT abdomen pelvis as discussed above in MDM Portable AP upright 1 view of the chest shows likely pleural effusions Consultation(s): Discussed with hospitalist for further evaluation ED COURSE: Procedures: none Critical Care: None Past Med/Surg History Medical History Altered mental status Atrial fibrillation Chronic atrial fibrillation CLL (chronic lymphocytic leukemia) Depressive disorder, not elsewhere classified (07/06/13) DVT prophylaxis Endometriosis Leukocytosis Osteoporosis, unspecified (07/06/13) RSD (reflex sympathetic dystrophy) Symptoms of cerebrovascular accident (CVA) Warfarin anticoagulation Surgical History H/O eye surgery H/O knee surgery History of ankle surgery History of appendectomy History of hysteroscopy History of right salpingo-oophorectomy History of surgery lumbar sympathetic nerve block History of total abdominal hysterectomy Hx of colonoscopy S/P cataract surgery S/P dilation and curettage Status post repair of nerve carpal tunnel of right hand (developed RSD) 03/21/93 Family History Mother Myocardial infarction Diabetes Hypertension Family/Other Breast cancer Sister Colorectal cancer Brother Hypertension Family history of ischemic heart disease before age 50 Brother Hypertension Family history of ischemic heart disease before age 50 Denies family history of Ovarian cancer Social History Smoking Status: Former smoker Second Hand Exposure: No; Hx Alcohol Use: No Hx Substance Use: No Preferred Language: Korean Communication Ability: Effective Scutcher Tender Required: No Beliefs That Will Affect Care: Presybeterian Presybeterian Beliefs: Jabari Current Living Situation: Alone Current Living Situation Comment: lives at [facility] in an independent living apartment Feels Safe at Home: Yes Assistive Devices: Glasses Allergies Allergies Allergy/AdvReac Type Severity Reaction Status Date / Time hydrocodone Allergy Intermediate RASH Verified 11/17/19 13:05 oxycodone Allergy Intermediate RASH Verified 11/17/19 13:05 sertraline Allergy Intermediate RASH- Verified 11/17/19 13:05 TAKES PAXIL W/O PROBLEM adhesive Allergy Mild SOME Verified 11/17/19 13:05 TAPES- RED SKIN naproxen AdvReac Mild HEADACHES Verified 11/17/19 13:05 Home Meds Home Medications Medication Instructions Recorded Confirmed digoxin 125 mcg PO DAILY 05/02/19 10/21/20 loteprednol etabonate [Lotemax] 1 drp OPB DAILY 05/02/19 10/21/20 timolol maleate 1 drp OPB BID 05/02/19 10/21/20 gabapentin 100 mg capsule 100 mg PO QAM 11/17/19 10/21/20 paroxetine HCl 10 mg tablet 10 mg PO DAILY 11/17/19 10/21/20 gabapentin 200 mg PO QPM 10/21/20 10/21/20 metoprolol succinate 25 mg PO DAILY 10/21/20 10/21/20 Previous Rx's Medication Instructions Recorded apixaban [Eliquis] 5 mg PO BID #60 tab 05/04/19 aspirin [Ecotrin Low Strength] 81 mg PO QAM #0 tab 05/04/19 atorvastatin 40 mg PO QAM #30 tab 05/04/19 Results & Data (ED) Vital Signs Vital Signs - 24 hr 10/21/20 12:58 10/21/20 16:33 10/21/20 16:42 Temperature 36.2 C L Temperature Source Temporal Artery Scan Pulse Rate 72 61 56 L Pulse Rate from SpO2 Sensor Respiratory Rate 20 20 16 Respiratory Effort / Characteristics Non-Labored Spontaneous Respiratory Depth Normal Respiratory Pattern Regular Blood Pressure 114/46 L 167/83 H Blood Pressure Mean 68 114 Pulse Oximetry 95 97 96 Oxygen Delivery Method Room Air Room Air Room Air Sepsis Recent Fever Within 48 Hours No Sepsis New/Unexplained Change in Mental Status N/A Sepsis Action Taken by Nursing No Action Required 10/21/20 17:01 10/21/20 17:30 10/21/20 18:00 Temperature Temperature Source Pulse Rate 69 68 62 Pulse Rate from SpO2 Sensor 63 Respiratory Rate 14 18 20 Respiratory Effort / Characteristics Respiratory Depth Respiratory Pattern Blood Pressure 121/71 142/70 H 140/65 Blood Pressure Mean 84 83 93 Pulse Oximetry 98 98 97 Oxygen Delivery Method Sepsis Recent Fever Within 48 Hours Sepsis New/Unexplained Change in Mental Status Sepsis Action Taken by Nursing 10/21/20 18:30 10/21/20 19:01 10/21/20 19:30 Temperature Temperature Source Pulse Rate 69 71 65 Pulse Rate from SpO2 Sensor 65 Respiratory Rate 18 15 16 Respiratory Effort / Characteristics Respiratory Depth Respiratory Pattern Blood Pressure 164/70 H 113/83 137/69 Blood Pressure Mean 89 89 81 Pulse Oximetry 97 96 96 Oxygen Delivery Method Room Air Sepsis Recent Fever Within 48 Hours Sepsis New/Unexplained Change in Mental Status Sepsis Action Taken by Nursing Laboratory Data Result diagrams: 10/21/20 13:40 10/21/20 13:40 Lab Results 10/21/20 10/21/20 10/21/20 Range/Units 13:40 13:40 13:40 WBC 37.95 H* (4.8-10.8) K/uL RBC 4.25 (4.2-5.4) M/uL Hgb 10.5 L (12.0-16.0) g/dL Hct 35.7 L (37-47) % MCV 84.0 (80-100) fL MCH 24.7 L (25-34) pg MCHC 29.4 L (32-36) g/dL RDW Std Deviation 59.8 H (36.4-46.3) fL RDW Coeff of Becky 19.9 H (11.5-14.5) % Plt Count 416 H (130-400) K/uL MPV 10.1 (7.4-10.4) fL Immature Gran % (Auto) 0.3 % Neut % (Auto) 15.7 % Lymph % (Auto) 82.1 % O'Brien % (Auto) 1.7 % Eos % (Auto) 0.1 % Baso % (Auto) 0.1 % Neut # (Auto) 5.96 (1.4-6.5) K/uL Lymph # (Auto) 31.16 H (1.2-3.4) K/uL O'Brien # (Auto) 0.66 H (0.11-0.59) K/uL Eos # (Auto) 0.03 (0-0.5) K/uL Baso # (Auto) 0.03 (0-0.2) K/uL Immature Gran # (Auto) 0.11 H (0.00-0.02) K/uL Smudge Cells Present Anisocytosis Present Microcytosis Present Sodium 133 L (136-145) mmol/L Potassium 5.2 H (3.5-5.1) mmol/L Chloride 100 (98-107) mmol/L Carbon Dioxide 26 (21-32) mmol/L Anion Gap 7.0 (3-11) BUN 39 H (7-18) mg/dl Creatinine 2.51 H (0.6-1.2) mg/dl Est Cr Clr Drug Dosing 16.4 ml/min Est GFR ( Amer) 19.8 Est GFR (Non-Af Amer) 17.1 BUN/Creatinine Ratio 15.4 (10-20) Glucose 126 H (70-99) mg/dl Calcium 9.7 (8.5-10.1) mg/dl Total Bilirubin 0.8 (0.2-1) mg/dl AST 44 H (15-37) U/L ALT 24 (12-78) U/L Alkaline Phosphatase 135 H (45-117) U/L Troponin I 0.027 (0-0.045) ng/ml Total Protein 7.0 (6.4-8.2) gm/dl Albumin 3.2 L (3.4-5.0) gm/dl Globulin 3.8 (2.5-4.0) gm/dl Albumin/Globulin Ratio 0.8 L (0.9-2) Lipase 114 (73-393) U/L SARS-CoV-2 Ag (Rapid) (Negative) 10/21/20 Range/Units Unknown WBC (4.8-10.8) K/uL RBC (4.2-5.4) M/uL Hgb (12.0-16.0) g/dL Hct (37-47) % MCV (80-100) fL MCH (25-34) pg MCHC (32-36) g/dL RDW Std Deviation (36.4-46.3) fL RDW Coeff of Becky (11.5-14.5) % Plt Count (130-400) K/uL MPV (7.4-10.4) fL Immature Gran % (Auto) % Neut % (Auto) % Lymph % (Auto) % O'Brien % (Auto) % Eos % (Auto) % Baso % (Auto) % Neut # (Auto) (1.4-6.5) K/uL Lymph # (Auto) (1.2-3.4) K/uL O'Brien # (Auto) (0.11-0.59) K/uL Eos # (Auto) (0-0.5) K/uL Baso # (Auto) (0-0.2) K/uL Immature Gran # (Auto) (0.00-0.02) K/uL Smudge Cells Anisocytosis Microcytosis Sodium (136-145) mmol/L Potassium (3.5-5.1) mmol/L Chloride (98-107) mmol/L Carbon Dioxide (21-32) mmol/L Anion Gap (3-11) BUN (7-18) mg/dl Creatinine (0.6-1.2) mg/dl Est Cr Clr Drug Dosing ml/min Est GFR ( Amer) Est GFR (Non-Af Amer) BUN/Creatinine Ratio (10-20) Glucose (70-99) mg/dl Calcium (8.5-10.1) mg/dl Total Bilirubin (0.2-1) mg/dl AST (15-37) U/L ALT (12-78) U/L Alkaline Phosphatase (45-117) U/L Troponin I (0-0.045) ng/ml Total Protein (6.4-8.2) gm/dl Albumin (3.4-5.0) gm/dl Globulin (2.5-4.0) gm/dl Albumin/Globulin Ratio (0.9-2) Lipase (73-393) U/L SARS-CoV-2 Ag (Rapid) Negative (Negative) Discharge Plan Visit Data Chief Complaint: GI Assessment Stated Complaint: GI ED Provider: Vince Coyle Discharge Problem: TAMY (acute kidney injury), Weakness, Leukocytosis, Anemia Patient Disposition: Admitted As Inpatient Discharge Instructions Interventions: ED Discharge Assessment Last Done: 10/21/20 20:01 Discharge Problem: Leukocytosis Qualifiers: Leukocytosis type: unspecified Qualified Code(s): D72.829 - Elevated white blood cell count, unspecified Anemia Qualifiers: Anemia type: unspecified type Qualified Code(s): D64.9 - Anemia, unspecified
--- NOTE | 2020-10-21 15:07 | XRay Report ---
XR chest 1V portable HISTORY: 85 years-old Female weak acute weakness COMPARISON: Chest radiograph 05/02/2019 TECHNIQUE: Portable AP view of the chest FINDINGS: Cardiac silhouette is moderately enlarged. Calcified plaque the thoracic aorta. No pneumothorax or ov ert pulmonary edema. Trace pleural effusions. Mild bibasilar densities. Degenerative changes of the s houlders and spine. IMPRESSION: 1. Cardiomegaly without overt pulmonary edema. 2. Trace pleural effusions with mild bibasilar densities suggestive of probable atelectasis. ACT 112: Negative or not required by law. The above report was generated using voice recognition software. It may contain grammatical, syntax o r spelling errors. Electronically signed by: Hilton Coleman M.D. 10/21/2020 3:05 PM
[2020-10-21 15:47] LABS: Anisocytosis Present; Basophils # (auto) 0.03 K/uL (0-0.2); Basophils % (auto) 0.1 %; Eosinophils # (auto) 0.03 K/uL (0-0.5); Eosinophils % (auto) 0.1 %; Immature Granulocytes # (auto) 0.11 K/uL (0.00-0.02); Immature Granulocytes % (auto) 0.3 %; Lymphocytes # (auto) 31.16 K/uL (1.2-3.4); Lymphocytes % (auto) 82.1 %; Microcytosis Present; Monocytes # (auto) 0.66 K/uL (0.11-0.59); Monocytes % (auto) 1.7 %; Neutrophils # (auto) 5.96 K/uL (1.4-6.5); Neutrophils % (auto) 15.7 %; Smudge Cells Present
--- NOTE | 2020-10-21 15:54 | Electrocardiogram Report ---
Test Reason : Blood Pressure : / mmHG Vent. Rate : 067 BPM Atrial Rate : 077 BPM P-R Int : 000 ms QRS Dur : 078 ms QT Int : 320 ms P-R-T Axes : 000 013 -49 degrees QTc Int : 338 ms Atrial fibrillation with a competing junctional pacemaker Low voltage QRS Nonspecific ST and T wave abnormality Abnormal ECG When compared with ECG of 02-MAY-2019 10:33, QT has shortened Confirmed by Victorino Rodriguez ([id number]) on 10/21/2020 3:53:58 PM Referred By: Confirmed By:Victorino Rodriguez
--- NOTE | 2020-10-21 16:53 | CT Scan Report ---
ABDOMEN AND PELVIS CT WITHOUT CONTRAST CT DOSE: 348.11 mGy.cm HISTORY: Distended abdomen. Generalized abdominal pain. TECHNIQUE: Multiaxial CT images of the abdomen and pelvis were performed without contrast. A dose lo wering technique was utilized adhering to the principles of ALARA. COMPARISON STUDY: None. FINDINGS: Small to moderate bilateral pleural effusions. Posterior bilateral lower lobe densities fav or compressive atelectasis from the pleural effusions. No pneumoperitoneum. No pneumatosis. Mild T11 superior endplate compression deformity. This appears to be acute to subacute. This demonstrates less than 10% loss of height centrally. No associated retropulsion. The heart is mildly enlarged. Trace p ericardial effusion is noted. A few mildly enlarged anterior diaphragmatic lymph nodes. Dominant lymp h node measures 1 cm. Moderate diffuse body wall edema. Nodular contour to the liver consistent with cirrhosis. No definite hepatic or splenic masses. Calcified granuloma seen within the spleen. No hydr onephrosis. No renal or ureteral calculi. Mild thickening at the pancreatic tail. No definite peripan creatic inflammatory change. No retroperitoneal lymphadenopathy. Bladder is suboptimally assessed but likely within the range normal limits. A few mildly enlarged ileocolic lymph nodes are noted. Bladde r is decompressed but appears unremarkable. Large amount of ascites seen throughout the abdomen. Ther e is thickening and nodularity along the peritoneal lining with associated omental nodularity. This i s most pronounced within the left lower quadrant on image 275. There is also thickening along the per itoneal lining of the deep pelvis. Therefore, these findings likely represent peritoneal carcinomatos is. No bowel wall thickening or obstruction. IMPRESSION: 1. Large amount of ascites. 2. Cirrhotic liver. 3. Thickening and nodularity along the peritoneal lining with associated omental nodularity. 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 This likely accounts for the ascites. 4. Mildly enlarged anterior diaphragmatic and ileocolic lymph nodes. 5. Moderate body wall edema. 6. Small moderate bilateral pleural effusions. 7. Acute to subacute mild superior endplate compression fracture at T11. No associated retropulsion. ACT 112: Negative or not required by law. Electronically signed by: Narciso Villalpando M.D. 10/21/2020 4:52 PM
--- NOTE | 2020-10-21 17:53 | History & Physical Report ---
Date of Service October 21, 2020 Assessment & Plan (1) TAMY (acute kidney injury): Baseline cr is 0.7 Cr 2.5 on admission IVF in the ED, will continue with gentle IVF given pt with poor intake recently Likely related to dehydration (2) Hyperkalemia: Mild and likely due to dehyrdation Monitor with IVF (3) Anemia: Repeat in AM Concerns about blood spots in underwear, possibly hemorrhoids?? Pt was to be seen by GI, however COVID started and this was not f/u Hx of neg c-scope 6-8 years ago No hx of colon cancer Hemoccult pending (4) CLL (chronic lymphocytic leukemia): Hx of elevated WBC, being followed by PCP Generally in the 15-16 range Now at 37.7 Heme/onc c/s pending CXR neg for signs of infection UA pending Afebrile (5) Abdominal distension: Ascites with concern for cirrhosis noted on CTAP Also concern for peritoneal carcinomatosis on CTAP--I did discuss results with pt and daughter in the ED Low bumex dosing given renal function Monitor No need for emergent paracentesis at present, which would also be risky in the setting of eliquis use Holding eliquis for possible need for paracentesis if not responding Last dose was AM 10/21 (6) Fall: Pt fell 3 weeks ago Seen by ortho in office, XR neg per daughter Declined work up at that time (7) Weakness: Likely multifactorial given above and worsening LE swelling Trop neg Pt takes eliquis daily and LE swelling is b/l making DVT/PE less likely, however may need t/c given likelihood of malignancy LE swelling is likely related to ascites, but t/c US if persisting VSS, O2 sats WNL PT/OT Lives at [facility] COVID neg on admission (8) Chronic atrial fibrillation: continue home meds Holding eliquis for possible procedure (9) Symptoms of cerebrovascular accident (CVA): Mild cognitive impairment Pt is her own decision maker, however needs support from daughter due to memory issues (10) RSD (reflex sympathetic dystrophy): (11) HTN (hypertension): continue home meds (12) Hyperlipidemia: Holding statin (13) DVT prophylaxis: SCDs Holding eliquis, aspirin 81mg for possible procedures Full code, although pt states no prolonged mechanical life support, feeding tubes, etc. Daughter is present and agrees. Pt has had mild memory issues since her stroke. Daughter would like to be on pt's cell phone if possible during physician discussions. If that is not possible, daughter would like called at earliest convenience. History of Present Illness Primary Care Provider: Daniel Valles MD 85 y/o F c/o weakness and abd distention. Pt's increased weakness was first noted about 2-3 weeks ago. Daughter feels her abd distention also started around then with decreased PO intake as well. Pt has nausea at times, but no emesis. She has no constipation or diarrhea. She does not have pain with her abd distention, it is just mildly uncomfortable. Pt fell about 3 weeks ago. Her daughter wanted her to be seen at that time, however pt declined. She was seen a few days later by cardiology for her routine f/u and was sent to ortho at that time due to LE swelling. Per daughter, pt was seen by ortho and imaging was done at that time. There was no fracture noted and pt declined further workup at that time. Her balance has gotten worse since that time. Pt does note that her bowel movements are regular, but they have become darker recently and possibly sticky. She noted blood in her underwear around December and was seen by her PCP at that time. She was referred to wardrobe specialist who felt that pt would need to see GI. This was set up for around the time that COVID started and it was decided that pt could wait to see GI at a later date. She never followed up with this. She states she does continue to see blood spots in her underwear, independent of bowel movements. Pt did have a screening c-scope at one point, maybe 6-8 years ago. She states it was "normal" and she decided at that time to not have further c-scopes. She has no hx of colon cancer. She denies formal dx of hemorrhoids, but does believe that she has them. She recently asked her daughter to buy Preperation H for her for this concern. Pt denies fever, SOB, chest pain, LE pain. She has been urinating regularly and without issue. Allergies Allergy/AdvReac Type Severity Reaction Status Date / Time hydrocodone Allergy Intermediate RASH Verified 11/17/19 13:05 oxycodone Allergy Intermediate RASH Verified 11/17/19 13:05 sertraline Allergy Intermediate RASH- Verified 11/17/19 13:05 TAKES PAXIL W/O PROBLEM adhesive Allergy Mild SOME Verified 11/17/19 13:05 TAPES- RED SKIN naproxen AdvReac Mild HEADACHES Verified 11/17/19 13:05 Home Medications Medication Instructions Recorded Confirmed Type digoxin 125 mcg PO DAILY 05/02/19 10/21/20 History loteprednol etabonate [Lotemax] 1 drp OPB DAILY 05/02/19 10/21/20 History timolol maleate 1 drp OPB BID 05/02/19 10/21/20 History apixaban [Eliquis] 5 mg PO BID #60 tab 05/04/19 10/21/20 Rx aspirin [Ecotrin Low Strength] 81 mg PO QAM #0 tab 05/04/19 10/21/20 Rx atorvastatin 40 mg PO QAM #30 tab 05/04/19 10/21/20 Rx gabapentin 100 mg capsule 100 mg PO QAM 11/17/19 10/21/20 History paroxetine HCl 10 mg tablet 10 mg PO DAILY 11/17/19 10/21/20 History gabapentin 200 mg PO QPM 10/21/20 10/21/20 History metoprolol succinate 25 mg PO DAILY 10/21/20 10/21/20 History Past Med/Surg History Medical History Altered mental status Atrial fibrillation Chronic atrial fibrillation CLL (chronic lymphocytic leukemia) Depressive disorder, not elsewhere classified (07/06/13) DVT prophylaxis Endometriosis Leukocytosis Osteoporosis, unspecified (07/06/13) RSD (reflex sympathetic dystrophy) Symptoms of cerebrovascular accident (CVA) Warfarin anticoagulation Surgical History H/O eye surgery H/O knee surgery History of ankle surgery History of appendectomy History of hysteroscopy History of right salpingo-oophorectomy History of surgery lumbar sympathetic nerve block History of total abdominal hysterectomy Hx of colonoscopy S/P cataract surgery S/P dilation and curettage Status post repair of nerve carpal tunnel of right hand (developed RSD) 03/21/93 Family History Mother Myocardial infarction Diabetes Hypertension Family/Other Breast cancer Sister Colorectal cancer Brother Hypertension Family history of ischemic heart disease before age 50 Brother Hypertension Family history of ischemic heart disease before age 50 Denies family history of Ovarian cancer Social History Smoking Status: Former smoker Second Hand Exposure: No; Hx Alcohol Use: No Hx Substance Use: No Preferred Language: Malian Communication Ability: Effective Barrel Charrer Helper Required: No Beliefs That Will Affect Care: Zoroastrianism Zoroastrianism Beliefs: Taoism Current Living Situation: Alone Current Living Situation Comment: lives at [facility] in an independent living apartment Feels Safe at Home: Yes Assistive Devices: Glasses Review of Systems Review of Systems: Pertinent positives and negatives reviewed in HPI--all others negative Physical Exam Constitutional: WD/WN, vitals as above Eyes: normal visual espinoza by confrontation and + anicteric sclerae Neck: normal visual inspection and trachea midline Respiratory: normal respiratory effort, lungs clear to auscultation Cardiovascular: Rate/Rhythm: regular rate and regular rhythm Gastrointestinal (Abdomen): Inspection/Auscultation: + abdomen distended Percussion/Palpation: abdomen soft; abdomen nontender Musculoskeletal: Head/Neck/Chest: normocephalic and head atraumatic 3+ pitting edema to thighs b/l, peripheral pulses intact Skin: no rashes, warm and dry Neurologic: awake; not confused Speech / Cognition: normal speech Psychiatric: A+Ox3, euthymic affect Results & Data Results & Data ([facility]) Vital Signs (Past 12 Hours) Vital Signs Temp Pulse Resp BP Pulse Ox 10/21/20 17:01 69 14 121/71 98 10/21/20 16:42 56 L 16 96 10/21/20 16:33 61 20 167/83 H 97 10/21/20 12:58 36.2 C L 72 20 114/46 L 95 Diagnostic Findings CXR: trace pleural effusions CTAP: 1. Large amount of ascites. 2. Cirrhotic liver. 3. Thickening and nodularity along the peritoneal lining with associated omental nodularity. Therefore, this likely represents peritoneal carcinomatosis. This likely accounts for the ascites. 4. Mildly enlarged anterior diaphragmatic and ileocolic lymph nodes. 5. Moderate body wall edema. 6. Small moderate bilateral pleural effusions. 7. Acute to subacute mild superior endplate compression fracture at T11. No associated retropulsion. Code Status & VTE Plan Code Status Full code, although pt states no prolonged mechanical life support, feeding tubes, etc VTE Prophylaxis Plan VTE Prophylaxis will be ordered: Yes PG Care Time/CCT Total # of Minutes Spent Total Time Spent with Patient: Total time spent is greater than 50% in coordination of care (as documented) at patient's floor/unit and/or counseling patient: Coding Level of Care Code 41543 Initial Inpt Care Lvl 3 Diagnoses TAMY (acute kidney injury) N17.9 Hyperkalemia E87.5 Anemia D64.9 CLL (chronic lymphocytic leukemia) C91.10 Abdominal distension R14.0 Fall W19.XXXA Weakness R53.1 Chronic atrial fibrillation I48.2 Symptoms of cerebrovascular accident (CVA) R29.90 RSD (reflex sympathetic dystrophy) G90.50 HTN (hypertension) I10 Hyperlipidemia E78.5 DVT prophylaxis Z29.9
[2020-10-21] MEDS ORDERED: MAGNESIUM HYDROXIDE SUSP 30 ML UDC PO PRN (20:55)
[2020-10-21] MEDS ORDERED: ACETAMINOPHEN 325 MG TAB PO PRN (20:55)
[2020-10-21] MEDS ORDERED: ONDANSETRON INJ 2 MG/ML 2 ML VIAL IV PRN (20:55)
[2020-10-21 22:56] LABS: Appearance Urine Turbid (Clear); Bilirubin Urine Negative (Negative); Blood Urine Trace (Negative); Color Urine Dark Yellow; Epithelial Cell Urine Auto >30 /lpf (0-5); Glucose Urine UA Negative (Negative); Ketones Urine Trace (Negative); Leukocyte Esterase Urine Negative (Negative); Nitrite Urine Negative (Negative); Protein Urine 2+ (Negative); Specific Gravity Urine 1.017 (1.000-1.030); Urobilinogen Urine Negative (Negative); WBC Urine Automated >30 /hpf (0-5)
[2020-10-21] MEDS: TIMOLOL MALEATE 0.25% OP SOLN 5 ML BTL OPB SCH (23:47)
[2020-10-21] MEDS: GABAPENTIN 100 MG CAP PO SCH (23:47)
[2020-10-21] MEDS: LOTEMAX~ORDER AWAITING ACTION SCH (23:48)
[2020-10-21] MEDS: SODIUM CHLORIDE 0.9% 1000ML 1,000 ML IV SCH (23:48)
[2020-10-22] MEDS: LOTEMAX~ORDER AWAITING ACTION SCH ×3 (00:06→15:00)
[2020-10-22 00:25] LABS: Amorphous Sediment Urine Present (None Prsent); Bacteria Urine Automated Negative (Negative); RBC Urine Automated 0-4 /hpf (0-4)
[2020-10-22 06:33] LABS: Hematocrit (blood only) 31.6 % (37-47); Hemoglobin 9.2 g/dL (12.0-16.0); Mean Corpuscular Hemoglobin 24.1 pg (25-34); Mean Corpuscular Hgb Conc 29.1 g/dL (32-36); Mean Corpuscular Volume 82.7 fL (80-100); Mean Platelet Volume 9.6 fL (7.4-10.4); Platelet Count 349 K/uL (130-400); RDW Coefficient of Variation 19.8 % (11.5-14.5); RDW Standard Deviation 58.8 fL (36.4-46.3); Red Blood Count 3.82 M/uL (4.2-5.4); White Blood Count 35.09 K/uL (4.8-10.8)
[2020-10-22 06:56] LABS: BUN Creatinine Ratio 16.6 (10-20); Calcium 9.1 mg/dl (8.5-10.1); Creatinine Clr Calc Pharmacy 15.4 ml/min; Est GFR (African American) 18.7; Est GFR (Non-African American) 16.1; Magnesium 2.1 mg/dl (1.8-2.4); Phosphorus 5.3 mg/dl (2.5-4.9); Potassium 4.7 mmol/L (3.5-5.1)
[2020-10-22 07:34] LABS: Anisocytosis Present; Basophils # (auto) 0.02 K/uL (0-0.2); Basophils % (auto) 0.1 %; Eosinophils # (auto) 0.04 K/uL (0-0.5); Eosinophils % (auto) 0.1 %; Immature Granulocytes # (auto) 0.13 K/uL (0.00-0.02); Immature Granulocytes % (auto) 0.4 %; Lymphocytes # (auto) 27.42 K/uL (1.2-3.4); Lymphocytes % (auto) 78.1 %; Monocytes # (auto) 0.95 K/uL (0.11-0.59); Monocytes % (auto) 2.7 %; Neutrophils # (auto) 6.53 K/uL (1.4-6.5); Neutrophils % (auto) 18.6 %; Poikilocytosis Present; Polychromasia 1+
[2020-10-22] MEDS: PARoxetine HCL 10 MG TAB PO SCH (07:51)
[2020-10-22] MEDS: GABAPENTIN 100 MG CAP PO SCH ×2 (07:51→21:19)
[2020-10-22] MEDS: TIMOLOL MALEATE 0.25% OP SOLN 5 ML BTL OPB SCH ×2 (07:52→21:54)
[2020-10-22] MEDS: METOPROLOL SUCC 25MG EXT REL TAB PO SCH (07:52)
--- NOTE | 2020-10-22 08:24 | Hospitalist Progress Note ---
Date of Service October 22, 2020 Assessment & Plan (1) Abdominal distension: peritoneal carcinomatosis on CTAP--Dr Nascimento did discuss results with pt and daughter in the ED Ascites with concern for cirrhosis noted on CTAP Holding eliquis for possible need for paracentesis could be diagnostic also Last dose was AM 10/21 (2) TAMY (acute kidney injury): Baseline cr is 0.7 Cr 2.5 on admission concern with ascites for volume shifts, intavascular depletion with third space fluids, may benefit from albumin and low dose fluids (3) Hyperkalemia: improved (4) Anemia: no micorcytic , seems stable at present Hx of neg c-scope 6-8 years ago No hx of colon cancer (5) CLL (chronic lymphocytic leukemia): Hx of elevated WBC, being followed by PCP Generally in the 15-16 range Now at 37.7 Heme/onc c/s pending CXR neg for signs of infection UA pending. given some confusion start zosyn( also covers SBP) Afebrile (6) Fall: Pt fell 3 weeks ago Seen by ortho in office, XR neg per daughter Declined work up at that time (7) Weakness: Likely multifactorial given above and worsening LE swelling Trop neg Pt takes eliquis daily and LE swelling is b/l making DVT/PE less likely, however may need t/c given likelihood of malignancy LE swelling is likely related to ascites, PT/OT Lives at [facility] on admission (8) Chronic atrial fibrillation: typically on digoxin and metoprolol succinate 25 Holding eliquis for possible procedure (9) Symptoms of cerebrovascular accident (CVA): Mild cognitive impairment Pt is her own decision maker, however needs support from daughter due to memory issues given some confusion and concern for cancer will have MRI of brain (10) RSD (reflex sympathetic dystrophy): (11) HTN (hypertension): continue home meds (12) Hyperlipidemia: Holding statin (13) DVT prophylaxis: SCDs Holding eliquis, aspirin 81mg for possible procedures Full code, although pt states no prolonged mechanical life support, feeding tubes, etc. Daughter is present and agrees. Pt has had mild memory issues since her stroke. Daughter would like to be on pt's cell phone if possible during physician discussions. miah updated 10/22/20 Admission and Anticipated Discharge Date Admission Date: October 21, 2020 Subjective pt remains pleasantly confused she stills has abdominal distension, no focal complaints Review of Systems Review of Systems: Mild distress and fatigue no headache, blurry or double vision no speech or swallowing issues no chest pain, pressure or palpitations no shortness of breath, cough or wheezes no abdominal pain, complains of fullness and distention no dysuria, hematuria or frequency no focal joint pain does have le swelling no back pain, CVA tenderness or radicular pain no bruising, bleeding or rashes no focal signs of weakness or numbness or altered sensation no complaints of anxiety or depression mild forgetfulness is present. Physical Exam Physical Exam: The patient appeared her stated age Vital signs as documented. Head exam is normocephalic atraumatic no scleral icterus Neck is without JVD, thyromegaly, or carotid bruits. Lungs are clear to auscultation, Decreased breath sounds at the bases Cardiac exam, Rhythm is regular.. Abdominal exam reveals distention dullness and fullness of the abdomen Extremities are moderatley edematous and both pedal pulses are present Neurologic exam is alert and oriented, no focal loss of strength or sensation Skin is without bruises or rashes Psychologically is without concerns for anxiety or depression. Results & Data Results & Data ([facility]) Vital Signs (Past 12 Hours) Vital Signs Temp Pulse Resp BP Pulse Ox 10/22/20 07:30 97.5 F L 77 18 132/80 92 10/21/20 23:00 97.7 F 56 L 18 154/82 H 97 10/21/20 20:55 97.3 F L 73 20 146/83 H 95 PG Care Time/CCT Total # of Minutes Spent Total Time Spent with Patient: Total time spent is greater than 50% in coordination of care (as documented) at patient's floor/unit and/or counseling patient: Coding Level of Care Code 72070 Subseq Hosp Care Lvl 3 Diagnoses Abdominal distension R14.0 TAMY (acute kidney injury) N17.9 Hyperkalemia E87.5 Anemia D64.9 Anemia type: unspecified type CLL (chronic lymphocytic leukemia) C91.10 Fall W19.XXXA Weakness R53.1 Chronic atrial fibrillation I48.2 Symptoms of cerebrovascular accident (CVA) R29.90 RSD (reflex sympathetic dystrophy) G90.50 HTN (hypertension) I10 Hyperlipidemia E78.5 DVT prophylaxis Z29.9 (1) Anemia Anemia type: unspecified type Qualified Code(s): D64.9 - Anemia, unspecified
[2020-10-22] MEDS ORDERED: DIGOXIN 0.125 MG TAB PO SCH (09:00)
[2020-10-22] MEDS ORDERED: BUMETANIDE 0.5 MG in SYRINGE 0 ML IV SCH (09:00)
[2020-10-22] MEDS ORDERED: PIPERACILL/TAZOBAC CONSULT ACTIVE PRN (09:52)
[2020-10-22] MEDS ORDERED: cefTRIAXone SODIUM 2,000 MG in DEXTROSE 5% 50 ML IV SCH (10:00)
[2020-10-22] MEDS ORDERED: PIPERACILLIN/TAZOBACTAM 3.375 GM in DEXTROSE 5% 100 ML IV SCH (10:00)
[2020-10-22] MEDS ORDERED: PIPERACILLIN/TAZOBACTAM 3.375 GM in DEXTROSE 5% 100 ML IV ONE (10:15)
[2020-10-22] MEDS: DIGOXIN 0.125 MG TAB PO SCH (15:55)
[2020-10-22] MEDS: PIPERACILLIN/TAZOBACTAM 3.375 GM in DEXTROSE 5% 100 ML IV SCH (17:37)
[2020-10-23] MEDS: LOTEMAX~ORDER AWAITING ACTION SCH ×3 (01:12→15:08)
[2020-10-23] MEDS: PIPERACILLIN/TAZOBACTAM 3.375 GM in DEXTROSE 5% 100 ML IV SCH (06:39)
[2020-10-23] MEDS: SODIUM CHLORIDE 0.9% 1000ML 1,000 ML IV SCH (07:51)
[2020-10-23] MEDS: PARoxetine HCL 10 MG TAB PO SCH (07:52)
[2020-10-23] MEDS: TIMOLOL MALEATE 0.25% OP SOLN 5 ML BTL OPB SCH ×2 (07:52→22:52)
[2020-10-23] MEDS: GABAPENTIN 100 MG CAP PO SCH ×2 (07:52→22:52)
[2020-10-23] MEDS: METOPROLOL SUCC 25MG EXT REL TAB PO SCH (07:52)
--- NOTE | 2020-10-23 08:04 | Hospitalist Progress Note ---
Date of Service October 23, 2020 Assessment & Plan (1) Abdominal distension: peritoneal carcinomatosis on CTAP--Dr Nascimento did discuss results with pt and daughter in the ED Ascites with concern for cirrhosis noted on CTAP Holding eliquis for possible need for paracentesis could be diagnostic also Last dose was AM 10/21, ask for US guided paracentesis, fluid analysis and cytology on 10/24/20 (2) TAMY (acute kidney injury): Baseline cr is 0.7 Cr 2.5 on admission concern with ascites for volume shifts, intavascular depletion with third space fluids, may benefit from albumin and low dose fluids (3) Hyperkalemia: improved (4) Anemia: no micorcytic , seems stable at present Hx of neg c-scope 6-8 years ago No hx of colon cancer (5) CLL (chronic lymphocytic leukemia): Hx of elevated WBC, being followed by PCP Generally in the 15-16 range Now at 37.7 Heme/onc c/s pending CXR neg for signs of infection UA negative for infection Afebrile (6) Fall: Pt fell 3 weeks ago Seen by ortho in office, XR neg per daughter Declined work up at that time (7) Weakness: Likely multifactorial given above and worsening LE swelling Trop neg Pt takes eliquis daily and LE swelling is b/l making DVT/PE less likely, however may need t/c given likelihood of malignancy LE swelling is likely related to ascites, PT/OT Lives at [facility] on admission (8) Chronic atrial fibrillation: typically on digoxin and metoprolol succinate 25 Holding eliquis for possible procedure (9) Symptoms of cerebrovascular accident (CVA): Mild cognitive impairment, ? encephalopathy, did start to treat abnomal ua, negative mri brain and ammonia Pt is her own decision maker, however needs support from daughter due to memory issues (10) RSD (reflex sympathetic dystrophy): (11) HTN (hypertension): continue home meds (12) Hyperlipidemia: Holding statin (13) DVT prophylaxis: SCDs Holding eliquis, aspirin 81mg for possible procedures Full code, although pt states no prolonged mechanical life support, feeding tubes, etc. Daughter is present and agrees. Pt has had mild memory issues since her stroke. Daughter would like to be on pt's cell phone if possible during physician discussions. miah updated 11/21/20 Admission and Anticipated Discharge Date Admission Date: October 21, 2020 Subjective pt remains pleasantly confused maybe slighlty more confusion, still with abd distension Review of Systems Review of Systems: Mild distress and fatigue no headache, blurry or double vision no speech or swallowing issues no chest pain, pressure or palpitations no shortness of breath, cough or wheezes no abdominal pain, complains of fullness and distention no dysuria, hematuria or frequency no focal joint pain does have le swelling no back pain, CVA tenderness or radicular pain no bruising, bleeding or rashes no focal signs of weakness or numbness or altered sensation no complaints of anxiety or depression mild forgetfulness is present. Physical Exam Physical Exam: The patient appeared her stated age Vital signs as documented. Head exam is normocephalic atraumatic no scleral icterus Neck is without JVD, thyromegaly, or carotid bruits. Lungs are clear to auscultation, Decreased breath sounds at the bases Cardiac exam, Rhythm is regular.. Abdominal exam reveals distention dullness and fullness of the abdomen Extremities are moderatley edematous and both pedal pulses are present Neurologic exam is alert and oriented, no focal loss of strength or sensation Skin is without bruises or rashes Psychologically is without concerns for anxiety or depression. Results & Data Results & Data ([facility]) Vital Signs (Past 12 Hours) Vital Signs Temp Pulse Resp BP BP Pulse Ox 10/23/20 07:00 97.7 F 67 16 146/74 H 95 10/22/20 23:49 97.9 F 71 18 131/71 96 PG Care Time/CCT Total # of Minutes Spent Total Time Spent with Patient: Total time spent is greater than 50% in coordination of care (as documented) at patient's floor/unit and/or counseling patient: Coding Level of Care Code 50327 Subseq Hosp Care Lvl 3 Diagnoses Abdominal distension R14.0 TAMY (acute kidney injury) N17.9 Hyperkalemia E87.5 Anemia D64.9 Anemia type: unspecified type CLL (chronic lymphocytic leukemia) C91.10 Fall W19.XXXA Weakness R53.1 Chronic atrial fibrillation I48.2 Symptoms of cerebrovascular accident (CVA) R29.90 RSD (reflex sympathetic dystrophy) G90.50 HTN (hypertension) I10 Hyperlipidemia E78.5 DVT prophylaxis Z29.9 (1) Anemia Anemia type: unspecified type Qualified Code(s): D64.9 - Anemia, unspecified
[2020-10-23 08:57] LABS: Albumin Level 2.6 gm/dl (3.4-5.0); BUN Creatinine Ratio 14.1 (10-20); Creatinine Clr Calc Pharmacy 11.9 ml/min; Est GFR (African American) 13.6; Est GFR (Non-African American) 11.7; Potassium 5.3 mmol/L (3.5-5.1)
[2020-10-23 09:00] LABS: Albumin Globulin Ratio 0.8 (0.9-2); Bilirubin,Total 0.7 mg/dl (0.2-1); Globulin 3.4 gm/dl (2.5-4.0)
--- NOTE | 2020-10-23 10:16 | Magnetic Resonance Report ---
MRI OF THE BRAIN WITHOUT CONTRAST CLINICAL HISTORY: Change in mental status. Possible metastatic disease. HISTORY OF PRIOR STROKES COMPARISON STUDY: 05/02/2019 FINDINGS: Sagittal T1, axial diffusion, proton density and T2 weighted axial, coronal FLAIR, and axial T1-weigh khloe images were acquired. No intra or extra-axial mass lesions are visualized Axial diffusion-weighted images reveal no evidence of acute or subacute infarction. There is no evidence of ventricular dilatation. Proton density T2-weighted and FLAIR images reveal moderate foci of increased T2 signal within the wh ite matter, likely on a small vessel basis. There are a few scattered small lacunar infarcts. There are no abnormal flow voids. There are foci of increased T2 signal within the left mastoid, consistent with an inflammatory proces s. IMPRESSION: 1. No acute intracranial findings 2. No evidence of acute or subacute infarction 3. No evidence of intracranial metastatic disease given the limitations of a noncontrast study ACT 112: Negative or not required by law. Electronically signed by: Varghese Hooker M.D. 10/23/2020 10:14 AM
[2020-10-23] MEDS: PATIROMER CALCIUM SORBITEX 8.4 GM PACK PO SCH (11:54)
[2020-10-23] MEDS: DIGOXIN 0.125 MG TAB PO SCH (15:25)
[2020-10-24] MEDS: LOTEMAX~ORDER AWAITING ACTION SCH ×3 (01:07→17:08)
[2020-10-24 05:55] LABS: INR 1.1 (0.9-1.1); Prothrombin Time 11.9 Seconds (9.0-12.0)
[2020-10-24] MEDS: METOPROLOL SUCC 25MG EXT REL TAB PO SCH (07:39)
[2020-10-24] MEDS: TIMOLOL MALEATE 0.25% OP SOLN 5 ML BTL OPB SCH ×2 (07:39→21:40)
[2020-10-24] MEDS: SODIUM CHLORIDE 0.9% 1000ML 1,000 ML IV SCH ×2 (07:39→21:46)
[2020-10-24] MEDS: GABAPENTIN 100 MG CAP PO SCH ×2 (07:39→21:39)
[2020-10-24] MEDS: PARoxetine HCL 10 MG TAB PO SCH (07:39)
[2020-10-24] MEDS: PATIROMER CALCIUM SORBITEX 8.4 GM PACK PO SCH (08:39)
--- NOTE | 2020-10-24 14:17 | Ultrasound Report ---
ULTRASOUND GUIDED DIAGNOSTIC AND THERAPEUTIC PARACENTESIS CLINICAL HISTORY: large new ascites, also send cytology COMPARISON STUDY: CT of the abdomen and pelvis October 21, 2020. PROCEDURE: The risks, benefits, and alternatives to the procedure were discussed with the patient inc luding the risk of bleeding, infection and injury to adjacent structures. The patient agreed to the procedure and informed written consent was obtained. Following real-time ultrasound localization, the skin of the right lower quadrant was prepped and draped. Following local anesthesia with Xylocaine, the sheath paracentesis needle was inserted and approximately 3 liters of straw-colored fluid was rem ashleigh by vacuum suction. The patient tolerated the procedure well and no immediate complications were evident. IMPRESSION: Ultrasound-guided paracentesis with removal of 3 liters of ascites. 1 L of ascites was s ent to the laboratory for analysis as ordered. ACT 112: Negative or not required by law. Electronically signed by: Malachi Abraham M.D. 10/24/2020 2:16 PM
[2020-10-24 16:17] LABS: Total Protein Peritoneal Fluid 3.5 g/dl
[2020-10-24 16:47] LABS: Appearance Peritoneal Fluid CLEAR; Basophils, Fluid 0 %; Color Peritoneal Fluid YELLOW; Eosinophils, Fluid 0 %; Lymphocytes, Fluid 20 %; Mono,Macrophage,Mesothelial 66 %; Neutrophils, Fluid 14 %; RBC Peritoneal Fluid (A) < 3000 /uL; WBC Peritoneal Fluid (A) 97 /ul (0-300)
[2020-10-24] MEDS: DIGOXIN 0.125 MG TAB PO SCH (17:09)
--- NOTE | 2020-10-24 18:20 | Hospitalist Progress Note ---
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 Ascites with concern for cirrhosis noted on CTAP Holding eliquis for possible need for paracentesis could be diagnostic also Last dose was AM 10/21, ask for US guided paracentesis, fluid analysis and cytology on 10/24/20, awaiting results 3L taken off Pt VSS s/p procedure (2) TAMY (acute kidney injury): Baseline cr is 0.7 Cr 2.5 on admission concern with ascites for volume shifts, intavascular depletion with third space fluids, may benefit from albumin and low dose fluids (3) Hyperkalemia: improved (4) Anemia: no micorcytic , seems stable at present Hx of neg c-scope 6-8 years ago No hx of colon cancer (5) CLL (chronic lymphocytic leukemia): Hx of elevated WBC, being followed by PCP Generally in the 15-16 range Now at 37.7 Heme/onc c/s pending CXR neg for signs of infection UA negative for infection Afebrile (6) Fall: Pt fell 3 weeks ago Seen by ortho in office, XR neg per daughter Declined work up at that time (7) Weakness: Likely multifactorial given above and worsening LE swelling Trop neg Pt takes eliquis daily and LE swelling is b/l making DVT/PE less likely, however may need t/c given likelihood of malignancy LE swelling is likely related to ascites, PT/OT to be ordered once pt more comfortable s/p paracentesis Lives at [facility] on admission (8) Chronic atrial fibrillation: typically on digoxin and metoprolol succinate 25 Holding eliquis for possible procedure (9) Symptoms of cerebrovascular accident (CVA): Mild cognitive impairment, ? encephalopathy, did start to treat abnomal ua, negative mri brain and ammonia Pt is her own decision maker, however needs support from daughter due to memory issues (10) RSD (reflex sympathetic dystrophy): (11) HTN (hypertension): continue home meds (12) Hyperlipidemia: Holding statin (13) DVT prophylaxis: SCDs Holding eliquis, aspirin 81mg for possible procedures Full code, although pt states no prolonged mechanical life support, feeding tubes, etc. Daughter is present and agrees. Pt has had mild memory issues since her stroke. Daughter would like to be on pt's cell phone if possible during physician discussions. Some concern for AMS after admission, however this appears to be pt's baseline dementia MRI neg No signs of metabolic encephalopathy Admission and Anticipated Discharge Date Admission Date: October 21, 2020 Subjective Pt was awaiting paracentesis during our discussion. She feels that her abd distention is unchanged from upon admission. No pain, just feels tight. Pt denies fever, SOB, chest pain, n/v/c/d, LE pain or swelling. Review of Systems Review of Systems: Pertinent positives and negatives reviewed in HPI--all others negative Physical Exam Constitutional: WD/WN, vitals as above Eyes: normal visual espinoza by confrontation and + anicteric sclerae Neck: normal visual inspection and trachea midline Respiratory: normal respiratory effort, lungs clear to auscultation Cardiovascular: Rate/Rhythm: regular rate and regular rhythm Gastrointestinal (Abdomen): Inspection/Auscultation: + abdomen distended Percussion/Palpation: abdomen soft; abdomen nontender Musculoskeletal: Head/Neck/Chest: normocephalic and head atraumatic Skin: no rashes, warm and dry Neurologic: awake; not confused Speech / Cognition: normal speech Psychiatric: A+Ox3, euthymic affect Results & Data Results & Data ([facility]) Vital Signs (Past 12 Hours) Vital Signs Temp Pulse Pulse Resp BP BP Pulse Ox 10/24/20 17:09 65 10/24/20 17:06 36.2 C L 65 16 151/94 H 93 10/24/20 15:58 36.4 C L 62 16 118/67 93 10/24/20 15:02 36.5 C 62 19 108/63 93 10/24/20 14:41 36.2 C L 62 18 123/59 L 93 10/24/20 14:00 36.4 C L 68 18 121/70 95 10/24/20 06:57 36.3 C L 65 18 126/74 93 PG Care Time/CCT Total # of Minutes Spent Total Time Spent with Patient: Total time spent is greater than 50% in coordination of care (as documented) at patient's floor/unit and/or counseling patient: Coding Level of Care Code 85630 Subseq Hosp Care Lvl 3 Diagnoses Abdominal distension R14.0 TAMY (acute kidney injury) N17.9 Hyperkalemia E87.5 Anemia D64.9 Anemia type: unspecified type CLL (chronic lymphocytic leukemia) C91.10 Fall W19.XXXA Weakness R53.1 Chronic atrial fibrillation I48.2 Symptoms of cerebrovascular accident (CVA) R29.90 RSD (reflex sympathetic dystrophy) G90.50 HTN (hypertension) I10 Hyperlipidemia E78.5 DVT prophylaxis Z29.9 (1) Anemia Anemia type: unspecified type Qualified Code(s): D64.9 - Anemia, unspecified
[2020-10-25] MEDS: LOTEMAX~ORDER AWAITING ACTION SCH ×4 (00:59→23:09)
[2020-10-25 08:37] LABS: Hematocrit (blood only) 32.4 % (37-47); Hemoglobin 9.6 g/dL (12.0-16.0); Mean Corpuscular Hemoglobin 24.4 pg (25-34); Mean Corpuscular Hgb Conc 29.6 g/dL (32-36); Mean Corpuscular Volume 82.2 fL (80-100); Mean Platelet Volume 9.6 fL (7.4-10.4); Platelet Count 363 K/uL (130-400); RDW Coefficient of Variation 19.9 % (11.5-14.5); RDW Standard Deviation 58.9 fL (36.4-46.3); Red Blood Count 3.94 M/uL (4.2-5.4); White Blood Count 36.54 K/uL (4.8-10.8)
[2020-10-25 09:10] LABS: BUN Creatinine Ratio 12.2 (10-20); Calcium 8.6 mg/dl (8.5-10.1); Creatinine Clr Calc Pharmacy 8.1 ml/min; Est GFR (African American) 8.6; Est GFR (Non-African American) 7.4; Potassium 4.9 mmol/L (3.5-5.1)
--- NOTE | 2020-10-25 09:29 | Consultation Report ---
DATE OF CONSULTATION: 10/25/2020 REASON FOR CONSULTATION: Ascites in an 85-year-old female. HISTORY OF PRESENT ILLNESS: I visited with the patient who is a pleasant 85-year-old female admitted to [facility] on 10/21/2020 with subacute onset of abdominal distention, anorexia with associated nausea but no vomiting. This patient unfortunately was unable to provide any meaningful information at bedside this morning and therefore relying solely on a document particularly H and P and followup nodes. According to the H and P patient had experienced increased weakness couple weeks prior to admission. The patient's daughter believes her abdomen was becoming distended to the point where her p.o. intake had diminished significantly. The patient had been complaining of nausea but denies any vomiting. The patient apparently fell 3 weeks ago and daughter insisted the patient be seen by a physician; however, the patient had declined. Apparently, she has history of chronic lymphocytic leukemia and follows at [facility]. I have been asked to investigate the contents of the ascites. Apparently, a paracentesis was performed yesterday with cytology pending. I am waiting to speak to the hospitalist directly moving forward. PAST MEDICAL HISTORY: Significant for CVA, reflex sympathetic dystrophy, osteoporosis, CLL, atrial fibrillation and altered mental status. PAST SURGICAL HISTORY: Includes history of knee and ankle surgery, appendectomy, hysteroscopy and right salpingo-oophorectomy, history of lumbar sympathetic nerve block, colonoscopy, cataract surgery and a dilatation and curettage. MEDICATIONS: Prior to admission include metoprolol 25 mg p.o. daily, gabapentin 200 mg p.o. at bedtime, paroxetine 10 mg p.o. daily, atorvastatin 40 mg p.o. daily, aspirin 81 mg p.o. daily, Eliquis 5 mg p.o. b.i.d., digoxin 125 mcg p.o. daily. ALLERGIES: NAPROXEN, ADHESIVE, SERTRALINE, OXYCODONE, HYDROCODONE. FAMILY HISTORY: Mother suffered from diabetes, hypertension and coronary artery disease. She has a brother with hypertension and ischemic heart disease. SOCIAL HISTORY: The patient lived at [place] in an independent living apartment. She is a nonsmoker, nondrinker, non-illicit drug user. REVIEW OF SYSTEMS: Unobtainable because of her mental status. PHYSICAL EXAMINATION: GENERAL: Very pleasant 85-year-old lady in no acute distress. VITAL SIGNS: Temperature 36.4, pulse 63, respiratory rate 16, blood pressure 142/74. SKIN: Without rash or lesion. HEENT: Atraumatic, normocephalic. Eyes: PERRLA, EOMI. Nares patent without rhinorrhea or discharge. Throat clear. Tongue midline. No buccal lesions or ulceration. LYMPH: No cervical, supraclavicular palpable nodes. HEART: Regular rate and rhythm. LUNGS: Clear to auscultation bilaterally. ABDOMEN: Mildly distended, shifting dullness, positive fluid wave. Bowel sounds hypoactive. No rigidity or guarding. EXTREMITIES: 1-2+ peripheral edema bilaterally. NEUROLOGIC: Strength testing not performed. Neurologically, she is awake and alert but not terribly oriented. Did not know today's date. LABORATORY DATA: These are from 10/22/2020, WBCs 35,000, hemoglobin 9.2, platelet count 349,000. Most are lymphocytes 27,420. Sodium 133, potassium 5.3, chloride 101, BUN 48, creatinine 3.43, albumin 2.6. RADIOGRAPHIC DATA: MRI of the brain, no evidence of intracranial metastatic disease. CT scan of the abdomen and pelvis, large amount of ascites, cirrhotic liver, thickening and nodularity along the peritoneal lining with a sense of associated omental nodularity, thought to be medical center representative of peritoneal carcinomatosis. PLAN: 1. Ascites, etiology unclear. 2. Acute renal injury. 3. Chronic lymphocytic leukemia by history. 4. Hypoalbuminemia. 5. General clinical decline. PLAN: I have been asked to render an opinion regarding the patient's case. This is a lady who has developed increased abdominal girth over the past couple of weeks. She appears to be in global clinical decline. Her mentation is certainly suspect, she was not oriented to the day and did not know she was at [facility] during my interview this morning. That said, I reviewed her chart, including radiographic studies, which suggest peritoneal carcinomatosis. Paracentesis was performed and will await formal cytology before rendering an opinion. 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 Conceivably, she may have 2 separate processes; however, I would not be surprised if her peritoneal fluid also revealed lymphocytic infiltration. Either way, her prognosis is quite poor and should she desire any treatment, would recommend sending her to a tertiary center. That said, I would be happy to discuss options with family members once diagnosis is confirmed. We will continue to follow her periodically throughout hospitalization. I agree with current medical management otherwise.
[2020-10-25] MEDS: PARoxetine HCL 10 MG TAB PO SCH (10:29)
[2020-10-25] MEDS: GABAPENTIN 100 MG CAP PO SCH (10:29)
[2020-10-25] MEDS: TIMOLOL MALEATE 0.25% OP SOLN 5 ML BTL OPB SCH ×2 (10:29→19:37)
[2020-10-25] MEDS: METOPROLOL SUCC 25MG EXT REL TAB PO SCH (10:30)
[2020-10-25] MEDS: PATIROMER CALCIUM SORBITEX 8.4 GM PACK PO SCH (10:30)
[2020-10-25 11:11] LABS: Hepatitis B Surface Antigen Neg (Neg)
[2020-10-25 11:39] LABS: Hepatitis C IgG 13Yrs+Old_Rflx Neg (Neg)
--- NOTE | 2020-10-25 12:14 | Hospitalist Progress Note ---
Date of Service October 25, 2020 Assessment & Plan (1) Digoxin toxicity: Given the pt's acute renal failure, altered MS, weakness, etc -- plan to treat dig toxicity. HOLD dig. EKG now. Transfer to tele. Spoke with pharmacy - will give 3 vials of digibind now. Repeat dig level am. Fortunately BP/HR are acceptable. (2) TAMY (acute kidney injury): Baseline cr is 0.7. Cr 2.5 two days ago. Now 5. Prerenal cause likely. Cannot rule out hepatorenal syndrome. No obstruction seen on recent CT. Awaiting urine Na, urine Cr, and urine Osm. Marti in place. Spoke with Dr Montes who will consult. Very low threshold for octreotide, midodrine, and albumin infusions for HRS. Daughter aware of rapidly worsening Cr. (3) Carcinomatosis: CT c/w such. Primary site uncertain. In light of already baseline CLL a 2nd cancer is very, very poor prognosis. Awaiting pathologies from ascites fluid. Fluid will reaccumulate unfortunately and will be diuretic resistant. Palliative care approach may be best in light of ARF, etc. Despite ascites she is comfortable. No evidence of SBP based on cell counts. (4) Cognitive impairment: at baseline (5) Metabolic encephalopathy: dig toxicity? ARF? combo of factors? supportive care (6) Hyperkalemia: improved 2nd to ARF daily BMP at minimum (7) Anemia: 2nd to CLL? 2nd to carcinomatosis? Dr Becerra consult appreciated CBC am (8) CLL (chronic lymphocytic leukemia): appreciate heme/onc consult w/ Dr Becerra flow cytometry sent this am leukocytosis is 2nd to CLL (9) Fall: Pt fell 3 weeks ago PT, OT as tolerated (10) Weakness: Likely multifactorial given ARF, cancer, ascites, CLL, dig toxicity, etc (11) Chronic atrial fibrillation: stop dig holding eliquis metoprolol on board (12) Symptoms of cerebrovascular accident (CVA): noted ammonia wnl (13) RSD (reflex sympathetic dystrophy): followed by pain management, [facility] (14) HTN (hypertension): continue home meds (15) Hyperlipidemia: Holding statin (16) Cirrhosis: etiology?? DAVILA? other? (17) DVT prophylaxis: Holding eliquis daughter extensively updated by phone ARF and dig toxicity concerning in setting of CLL and carcinomatosis may need palliative care Tx to PCU total critical care time 70 minutes for life threatening conditions as noted above Admission and Anticipated Discharge Date Admission Date: October 21, 2020 Subjective patient sitting in chair during the visit - requested to return to the bed because of fatigue. she c/o "feeling achy all over." poor appetite. simply doesn't feel well. denied cp or dyspnea. UOP in [place]. could not tell me the month, year, or where we were or why she was here. lengthy discussion by phone with Dr Montes from nephrology, pt's daughter, and pharmacy (re: digibind). Review of Systems Constitutional: + fatigue, + weakness and + anorexia; no fever Respiratory: no cough and no dyspnea Cardiovascular: no chest pain Gastrointestinal: no abdominal pain and no vomiting Musculoskeletal: + body aches Physical Exam Constitutional: + ill appearing, + altered mental status and + frail appearing; no acute distress ENMT: external ear and nose normal, oropharynx normal Mouth: oral mucous membranes not dry Respiratory: normal respiratory effort, lungs clear to auscultation Cardiovascular: Rate/Rhythm: regular rhythm and + irregularly irregular Heart Sounds: normal S1 and normal S2; no murmur Vessels: posterior tibial pulses present and dorsalis pedis pulses present; no JVD Extremities: no edema Gastrointestinal (Abdomen): Inspection/Auscultation: + abdomen distended (ascites) and normal bowel sounds Percussion/Palpation: abdomen nontender and no hepatosplenomegaly Skin: normal turgor Neurologic: Motor/Sensory: no asterixis Psychiatric: Orientation: alert and oriented to person; + not oriented to place and + not oriented to time Results & Data Results & Data ([facility]) Vital Signs (Past 12 Hours) Vital Signs Temp Pulse Resp BP Pulse Ox 10/25/20 07:57 36.1 C L 63 16 158/68 H 94 10/25/20 03:00 36.4 C L 63 16 142/74 H 94 Laboratory Results Laboratory Results - last 24 hr 10/24/20 10/25/20 10/25/20 Unknown 07:37 07:37 WBC 36.54 H* RBC 3.94 L Hgb 9.6 L Hct 32.4 L MCV 82.2 MCH 24.4 L MCHC 29.6 L RDW Std Deviation 58.9 H RDW Coeff of Becky 19.9 H Plt Count 363 MPV 9.6 Sodium 132 L Potassium 4.9 Chloride 100 Carbon Dioxide 23 Anion Gap 9.0 BUN 61 H Creatinine 5.03 H* D Est Cr Clr Drug Dosing 8.1 Est GFR ( Amer) 8.6 Est GFR (Non-Af Amer) 7.4 BUN/Creatinine Ratio 12.2 Glucose 79 Osmolality Calcium 8.6 Fluid Neutrophils % 14 Fluid Lymphocytes % 20 Fluid Eosinophils % 0 Fluid Basophils % 0 Fluid Meso/Macro/Pecos % 66 Peritoneal Color YELLOW Peritoneal Appearance CLEAR Peritoneal WBC 97 Peritoneal RBC < 3000 Peritoneal Tot Protein 3.5 Peritoneal Albumin 2.0 Digoxin Hep Bs Antigen Hepatitis C Antibody Flow Cytometry Specimen Flow Cytometry Comment 10/25/20 10/25/20 10/25/20 10:00 10:00 10:00 WBC RBC Hgb Hct MCV MCH MCHC RDW Std Deviation RDW Coeff of Becky Plt Count MPV Sodium Potassium Chloride Carbon Dioxide Anion Gap BUN Creatinine Est Cr Clr Drug Dosing Est GFR ( Amer) Est GFR (Non-Af Amer) BUN/Creatinine Ratio Glucose Osmolality 295 Calcium Fluid Neutrophils % Fluid Lymphocytes % Fluid Eosinophils % Fluid Basophils % Fluid Meso/Macro/Pecos % Peritoneal Color Peritoneal Appearance Peritoneal WBC Peritoneal RBC Peritoneal Tot Protein Peritoneal Albumin Digoxin Hep Bs Antigen Neg Hepatitis C Antibody Neg Flow Cytometry Specimen Cancelled Flow Cytometry Comment Pending 10/25/20 10:00 WBC RBC Hgb Hct MCV MCH MCHC RDW Std Deviation RDW Coeff of Becky Plt Count MPV Sodium Potassium Chloride Carbon Dioxide Anion Gap BUN Creatinine Est Cr Clr Drug Dosing Est GFR ( Amer) Est GFR (Non-Af Amer) BUN/Creatinine Ratio Glucose Osmolality Calcium Fluid Neutrophils % Fluid Lymphocytes % Fluid Eosinophils % Fluid Basophils % Fluid Meso/Macro/Pecos % Peritoneal Color Peritoneal Appearance Peritoneal WBC Peritoneal RBC Peritoneal Tot Protein Peritoneal Albumin Digoxin 3.4 H* Hep Bs Antigen Hepatitis C Antibody Flow Cytometry Specimen Flow Cytometry Comment urine cx neg ascites fluid cx neg path from ascites pending PG Care Time/CCT Total # of Minutes Spent Total Time Spent with Patient: Total time spent is greater than 50% in coordination of care (as documented) at patient's floor/unit and/or counseling patient: Critical Care Time: Yes Total Critical Care Time: 70 Coding Level of Care Code None Diagnoses Digoxin toxicity T46.0X1A Encounter type: initial encounter Injury intent: accidental or unintentional TAMY (acute kidney injury) N17.9 Carcinomatosis C80.0 Cognitive impairment R41.89 Metabolic encephalopathy G93.41 Hyperkalemia E87.5 Anemia D64.9 Anemia type: unspecified type CLL (chronic lymphocytic leukemia) C91.10 Fall W19.XXXA Weakness R53.1 Chronic atrial fibrillation I48.2 Symptoms of cerebrovascular accident (CVA) R29.90 RSD (reflex sympathetic dystrophy) G90.50 HTN (hypertension) I10 Hyperlipidemia E78.5 Cirrhosis K74.60 DVT prophylaxis Z29.9 Additional Codes Critical Care Time - Critical Care Time: Yes ([id number]) Time Spent (min) 70 (1) Anemia Anemia type: unspecified type Qualified Code(s): D64.9 - Anemia, unspecified (2) Digoxin toxicity Encounter type: initial encounter Injury intent: accidental or unintentional Qualified Code(s): T46.0X1A - Poisoning by cardiac-stimulant glycosides and drugs of similar action, accidental (unintentional), initial encounter
[2020-10-25] MEDS ORDERED: SODIUM CHLORIDE 0.9% IV ONE (14:00)
[2020-10-25] MEDS ORDERED: DIGOXIN IMMUNE FAB IV ONE (14:00)
[2020-10-25] MEDS ORDERED: 0.2 MICRON FILTER SET 1 EA IV ONE (14:00)
[2020-10-25] MEDS ORDERED: NORMOSOL-R 500 ML IV ONE (18:20)
[2020-10-25] MEDS ORDERED: OCTREOTIDE ACETATE 100 MCG/ML VIAL SQ SCH (18:30)
--- NOTE | 2020-10-25 18:43 | Nephrology Consultation ---
Date of Consultation October 25, 2020 Assessment & Plan (1) TAMY (acute kidney injury): Clinical presentation suggestive of prerenal physiology. BP and heart rate acceptable. Dig sonja provided earlier today. Hemodynamically currently stable. TBW high with decreased EAV. Clinical presentation consistent with ongoing prerenal physiology. I would certainly not exclude underlying ATN. However, I think decreased EAV due to underlying liver disease and loss of oncotic pressure is a concern. Oral intake has been poor. A IV fluid challenge with 500 ml of IV Normosol has been ordered. Additional fluids or colloid will be ordered pending response to therapy. Unfortunately, overall prognosis is guarded. Love confirmed that Radha would not likely want dialysis. Unfortunately, Radha was not able to communicate this with me. I would have significant concerns given underlying medical comorbidities. I would also have low threshold to start treatment for acute HRS with octreotide and albumin. I did opt to defer octreotide at this time given digoxin toxicity and bradycardia on monitor. Mi dodrine should be added as needed for any hypotension. UA demonstrated 2+ protein as well as dipstick + blood. Microscopy >30 WBC, hyaline casts. Nito 18. I cannot exclude AIN or infiltrative disease from underlying CLL/PML but these would be considered less likely. Rhabdomyolysis also unlikely. Statin has been discontinued. AM labs have been ordered including CMP, phos, UA, and CK. These will be monitored twice daily. I would strongly encourage palliative care consultation. (2) CLL (chronic lymphocytic leukemia): Pathology pending. Heme/onc consult reviewed. (3) Chronic atrial fibrillation: Digoxin toxicity treated as above. History of Present Illness Reason for Consultation: TAMY Requesting Physician: Bahman St Attending Physician: Bahman St History of Present Illness Radha Elizalde is an 85-year-old female with CLL, atrial fibrillation, history of CVA, RSD, and hypertension. She resides at the [facility]. Her daughter, Love, lives locally. The patient was seen this evening for evaluation of acute renal insufficiency. The medical history was discussed with Dr. Figueredo earlier today. I also spoke with the patient's daughter for >40 minutes on the phone this evening. Unfortunately, Radha is not able to provide a meaningful history. Her daughter describes current mental status as a notable change from baseline. Radha has experienced a decline in short term memory over the past year. Memory loss notable since she was admitted to [facility] in May of 2019 with a CVA. There is no reported prior history of kidney dysfunction. Creatinine in September 2019 was <1 mg/dL. Radha presented to the ED at [facility] with abdominal distention, weakness, dec reased appetite, as well as nausea and intermittent vomiting. Creatinine on admission was 2.5 mg/dL which has progressively risen to 5.0 mg/dL this AM. Urine output has been declining with 500 ml reported in the past 24 hours. A positive fluid balance of documented 3.8 L has been maintained. Paracentesis performed yesterday with removal of 3 L unaccounted for in the I/O's. Evaluation has been notable for a WBC of >35,000 and abdominal ascites with CT evidence of cirrhosis and peritoneal carcinomatosis. Pathology on the ascitic fluid is pending. BP has been acceptable. Radha has been hemodynamically stable with rate controlled atrial fibrillation. Digoxin level today was found to be elevated at 3+. Dig SONJA was provided and she has been placed on wing scorer. Latif catheter is intact with a small amount of concentrated urine at the time of my assessment. Radha's daughter expressed that her mother has a living will and would likely not want to pursue dialysis. Radha was unable to answer any of my questions directly. CT personally reviewed today. Kidneys with mild symmetric cortical atrophy. No obstruction. Kidneys are normal in size. Allergies Allergy/AdvReac Type Severity Reaction Status Date / Time hydrocodone Allergy Intermediate RASH Verified 11/17/19 13:05 oxycodone Allergy Intermediate RASH Verified 11/17/19 13:05 sertraline Allergy Intermediate RASH- Verified 11/17/19 13:05 TAKES PAXIL W/O PROBLEM adhesive Allergy Mild SOME Verified 11/17/19 13:05 TAPES- RED SKIN naproxen AdvReac Mild HEADACHES Verified 11/17/19 13:05 Home Medications Medication Instructions Recorded Confirmed Type digoxin 125 mcg PO DAILY 05/02/19 10/21/20 History loteprednol etabonate [Lotemax] 1 drp OPB DAILY 05/02/19 10/21/20 History timolol maleate 1 drp OPB BID 05/02/19 10/21/20 History apixaban [Eliquis] 5 mg PO BID #60 tab 05/04/19 10/21/20 Rx aspirin [Ecotrin Low Strength] 81 mg PO QAM #0 tab 05/04/19 10/21/20 Rx atorvastatin 40 mg PO QAM #30 tab 05/04/19 10/21/20 Rx gabapentin 100 mg capsule 100 mg PO QAM 11/17/19 10/21/20 History paroxetine HCl 10 mg tablet 10 mg PO DAILY 11/17/19 10/21/20 History gabapentin 200 mg PO QPM 10/21/20 10/21/20 History metoprolol succinate 25 mg PO DAILY 10/21/20 10/21/20 History Patient History Medical History Altered mental status Atrial fibrillation Chronic atrial fibrillation CLL (chronic lymphocytic leukemia) Depressive disorder, not elsewhere classified (07/06/13) DVT prophylaxis Endometriosis Leukocytosis Osteoporosis, unspecified (07/06/13) RSD (reflex sympathetic dystrophy) Symptoms of cerebrovascular accident (CVA) Warfarin anticoagulation Surgical History H/O eye surgery H/O knee surgery History of ankle surgery History of appendectomy History of hysteroscopy History of right salpingo-oophorectomy History of surgery lumbar sympathetic nerve block History of total abdominal hysterectomy Hx of colonoscopy S/P cataract surgery S/P dilation and curettage Status post repair of nerve carpal tunnel of right hand (developed RSD) 03/21/93 Family History Mother Myocardial infarction Diabetes Hypertension Family/Other Breast cancer Sister Colorectal cancer Brother Hypertension Family history of ischemic heart disease before age 50 Brother Hypertension Family history of ischemic heart disease before age 50 Denies family history of Ovarian cancer Social History Smoking Status: Never smoker Second Hand Exposure: No; Hx Alcohol Use: No Hx Substance Use: No Preferred Language: Italian Communication Ability: Effective Websphere Architect Required: No Beliefs That Will Affect Care: None Current Living Situation: Alone Current Living Situation Comment: [facility] independent Other Information That Helps Us Care for You: No Feels Safe at Home: Yes Safety Concerns: Feels Safe At This Time Assistive Devices: Walker Review of Systems Constitutional: + fatigue and + anorexia; no fever and no chills Eyes: no problem reported Ear, Nose, Mouth, Throat: + hearing loss; no problem reported Respiratory: no problem reported Cardiovascular: + edema; no chest pain and no palpitations Gastrointestinal: + nausea; no abdominal pain, no constipation and no diarrhea/loose stools Genitourinary: no problem reported Musculoskeletal: no problem reported Integumentary: no problem reported Neurologic: + generalized weakness and + confusion Psychiatric: no problem reported Hematologic / Lymphatic: no easy bleeding, no easy bruising and no problem re ported Physical Exam Constitutional: well developed and + frail appearing; no acute distress Eyes: + anicteric sclerae; no corneal abnormality ENMT: Ears: + hearing impairment Mouth: + dry oral mucous membranes Neck: normal visual inspection and trachea midline Respiratory: normal respiratory effort; no respiratory distress Auscultation: + diminished lung sounds; no rhonchi Cardiovascular: Rate/Rhythm: + irregularly irregular Vessels: no JVD Extremities: + edema and + varicosities Gastrointestinal (Abdomen): Inspection/Auscultation: + abdomen distended Percussion/Palpation: + abdomen tender (mild left sided), + ascites and + abdomen firm; abdomen not rigid Musculoskeletal: Extremities: + cyanosis; no clubbing and no petechiae Skin: + turgor decreased; no jaundice Neurologic: awake and + confused Motor/Sensory: no tremor and no asterixis Psychiatric: Orientation: alert; + not oriented x 3 Genitourinary: Latif draining concentrated urine Results & Data ([facility]) Vital Signs (Past 12 Hours) Vital Signs Temp Pulse Pulse Resp BP Pulse Ox 10/25/20 16:12 36.3 C L 63 18 111/61 95 10/25/20 14:34 36.6 C 62 16 128/81 96 10/25/20 07:57 36.1 C L 63 16 158/68 H 94 Laboratory Results Laboratory Results - last 24 hr 10/25/20 10/25/20 10/25/20 07:37 07:37 10:00 WBC 36.54 H* RBC 3.94 L Hgb 9.6 L Hct 32.4 L MCV 82.2 MCH 24.4 L MCHC 29.6 L RDW Std Deviation 58.9 H RDW Coeff of Becky 19.9 H Plt Count 363 MPV 9.6 Sodium 132 L Potassium 4.9 Chloride 100 Carbon Dioxide 23 Anion Gap 9.0 BUN 61 H Creatinine 5.03 H* D Est Cr Clr Drug Dosing 8.1 Est GFR ( Amer) 8.6 Est GFR (Non-Af Amer) 7.4 BUN/Creatinine Ratio 12.2 Glucose 79 Osmolality Calcium 8.6 Urine Osmolality Ur Random Creatinine Ur Random Sodium Digoxin Hep Bs Antigen Hepatitis C Antibody Flow Cytometry Specimen Cancelled Flow Cytometry Comment Pending 10/25/20 10/25/20 10/25/20 10:00 10:00 10:00 WBC RBC Hgb Hct MCV MCH MCHC RDW Std Deviation RDW Coeff of Becky Plt Count MPV Sodium Potassium Chloride Carbon Dioxide Anion Gap BUN Creatinine Est Cr Clr Drug Dosing Est GFR ( Amer) Est GFR (Non-Af Amer) BUN/Creatinine Ratio Glucose Osmolality 295 Calcium Urine Osmolality Ur Random Creatinine Ur Random Sodium Digoxin 3.4 H* Hep Bs Antigen Neg Hepatitis C Antibody Neg Flow Cytometry Specimen Flow Cytometry Comment 10/25/20 10/25/20 10/25/20 12:50 12:50 18:40 WBC RBC Hgb Hct MCV MCH MCHC RDW Std Deviation RDW Coeff of Becky Plt Count MPV Sodium Pending Potassium Pending Chloride Pending Carbon Dioxide Pending Anion Gap Pending BUN Pending Creatinine Pending Est Cr Clr Drug Dosing Pending Est GFR ( Amer) Pending Est GFR (Non-Af Amer) Pending BUN/Creatinine Ratio Pending Glucose Pending Osmolality Calcium Pending Urine Osmolality 298 L Ur Random Creatinine 132.0 Ur Random Sodium 18 Digoxin Hep Bs Antigen Hepatitis C Antibody Flow Cytometry Specimen Flow Cytometry Comment Diagnostic Findings ABDOMEN AND PELVIS CT WITHOUT CONTRAST CT DOSE: 348.11 mGy.cm HISTORY: Distended abdomen. Generalized abdominal pain. TECHNIQUE: Multiaxial CT images of the abdomen and pelvis were performed without contrast. A dose lowering technique was utilized adhering to the principles of ALARA. COMPARISON STUDY: None. FINDINGS: Small to moderate bilateral pleural effusions. Posterior bilateral lower lobe densities favor compressive atelectasis from the pleural effusions. No pneumoperitoneum. No pneumatosis. Mild T11 superior endplate compression deformity. This appears to be acute to subacute. This demonstrates less than 10% loss of height centrally. No associated retropulsion. The heart is mildly enlarged. Trace pericardial effusion is noted. A few mildly enlarged anterior diaphragmatic lymph nodes. Dominant lymph node measures 1 cm. Moderate diffuse body wall edema. Nodular contour to the liver consistent with cirrhosis. No definite hepatic or splenic masses. Calcified granuloma seen within the spleen. No hydronephrosis. No renal or ureteral calculi. Mild thickening at the pancreatic tail. No definite peripancreatic inflammatory change. No retroperitoneal lymphadenopathy. Bladder is suboptimally assessed but likely within the range normal limits. A few mildly enlarged ileocolic lymph nodes are noted. Bladder is decompressed but appears unremarkable. Large amount of ascites seen throughout the abdomen. There is thickening and nodularity along the peritoneal lining with associated omental nodularity. This is most pronounced within the left lower quadrant on image 275. There is also thickening along the peritoneal lining of the deep pelvis. Therefore, these findings likely represent peritoneal carcinomatosis. No bowel wall thickening or obstruction. IMPRESSION: 1. Large amount of ascites. 2. Cirrhotic liver. 3. Thickening and nodularity along the peritoneal lining with associated omental nodularity. Therefore, this likely represents peritoneal carcinomatosis. This likely accounts for the ascites. 4. Mildly enlarged anterior diaphragmatic and ileocolic lymph nodes. 5. Moderate body wall edema. 6. Small moderate bilateral pleural effusions. 7. Acute to subacute mild superior endplate compression fracture at T11. No associated retropulsion PG Care Time/CCT Total # of Minutes Spent Total Time Spent with Patient: Total time spent is greater than 50% in coordination of care (as documented) at patient's floor/unit and/or counseling patient: Coding Level of Care Code 08462 Inpt Consult Level 5 Diagnoses TAMY (acute kidney injury) N17.9 CLL (chronic lymphocytic leukemia) C91.10 Chronic atrial fibrillation I48.2
[2020-10-25 19:28] LABS: BUN Creatinine Ratio 12.5 (10-20); Calcium 8.7 mg/dl (8.5-10.1); Creatinine Clr Calc Pharmacy 7.7 ml/min; Est GFR (African American) 8.1; Potassium 5.1 mmol/L (3.5-5.1)
--- NOTE | 2020-10-26 05:03 | Electrocardiogram Report ---
Test Reason : Blood Pressure : / mmHG Vent. Rate : 069 BPM Atrial Rate : 000 BPM P-R Int : 000 ms QRS Dur : 076 ms QT Int : 336 ms P-R-T Axes : 000 022 256 degrees QTc Int : 360 ms Atrial fibrillation Low voltage QRS Abnormal ECG When compared with ECG of 21-OCT-2020 13:42, No significant change was found Confirmed by Jarad Obrien ([id number]) on 10/26/2020 5:03:10 AM Referred By: Daniel Valles Confirmed By:Jarad Orbien
[2020-10-26 07:04] LABS: Albumin Globulin Ratio 0.7 (0.9-2); Albumin Level 2.1 gm/dl (3.4-5.0); BUN Creatinine Ratio 12.8 (10-20); Bilirubin,Total 0.4 mg/dl (0.2-1); Calcium 8.1 mg/dl (8.5-10.1); Creatinine Clr Calc Pharmacy 7.5 ml/min; Est GFR (African American) 7.8; Est GFR (Non-African American) 6.8; Globulin 3.1 gm/dl (2.5-4.0); Potassium 4.9 mmol/L (3.5-5.1); Total Protein 5.2 gm/dl (6.4-8.2)
[2020-10-26] MEDS: LOTEMAX~ORDER AWAITING ACTION SCH ×3 (07:24→23:23)
[2020-10-26 08:51] LABS: Uric Acid 9.6 mg/dl (2.6-7.2)
[2020-10-26] MEDS: TIMOLOL MALEATE 0.25% OP SOLN 5 ML BTL OPB SCH ×2 (09:09→20:21)
[2020-10-26] MEDS: GABAPENTIN 100 MG CAP PO SCH (09:09)
[2020-10-26] MEDS: METOPROLOL SUCC 25MG EXT REL TAB PO SCH (09:10)
[2020-10-26] MEDS: PARoxetine HCL 10 MG TAB PO SCH (09:10)
[2020-10-26] MEDS ORDERED: NORMOSOL-R 1,000 ML IV ONE (09:13)
--- NOTE | 2020-10-26 09:35 | Nephrology Progress Note ---
Date of Service October 26, 2020 Assessment & Plan (1) TAMY (acute kidney injury): Clinical presentation consistent with prerenal physiology and possible ATN. Remains relatively oliguric. Thankfully, electrolytes are acceptable and there is no emergent indication for dialysis. Prognosis is unfortunately guarded. Palliative care consult requested to assist with goals of care. BP and heart rate acceptable. Improvement noted with treatment with digoxin Christopher. Hemodynamically stable. TBW high with decreased EAV. Third spacing of fluid complicating treatment. Decreased EAV due to underlying liver disease, malignancy, and loss of oncotic pressure. Oral intake remains poor. IV fluid challenge with 500 ml of IV Normosol provided overnight and additional 500 ml to be provided today. Additional fluids or colloid will be ordered pending response to therapy. Allopurinol added for hyperuricemia. Repeat labs ordered for this afternoon. Document strict I/O's. Encourage nutrition including supplements. (2) CLL (chronic lymphocytic leukemia): Ascitic fluid concerning for malignant ascites. Heme/onc consult appreciated. (3) Chronic atrial fibrillation: Digoxin toxicity treated yesterday. Admission and Anticipated Discharge Date Admission Date: October 21, 2020 Subjective No acute events overnight. Radha was resting comfortably in bed this morning. She feels well and denies any pain. No fevers or chills. She is breathing comfortably. Appetite is poor. Denies nausea. Her mental status had improved from yesterday. She did not recall our prior conversation. We spoke about dialysis and Radha stated that she would like to discuss this with her daughter Love. Review of Systems Review of Systems: All systems reviewed & are unremarkable except as noted in HPI & below Physical Exam Constitutional: well developed and + frail appearing; no acute distress Eyes: + anicteric sclerae; no corneal abnormality ENMT: Ears: + hearing impairment Mouth: + dry oral mucous membranes Neck: normal visual inspection and trachea midline Respiratory: normal respiratory effort; no respiratory distress Auscultation: + diminished lung sounds; no rhonchi Cardiovascular: Rate/Rhythm: + irregularly irregular Vessels: no JVD Extremities: + edema and + varicosities Gastrointestinal (Abdomen): Inspection/Auscultation: + abdomen distended Percussion/Palpation: + abdomen tender (mild left sided), + ascites and + abdom en firm; abdomen not rigid Musculoskeletal: Extremities: no clubbing and no petechiae small ulceration on the right heel. good capillary refill. Skin: + turgor decreased; no jaundice Neurologic: Motor/Sensory: no tremor and no asterixis Psychiatric: Orientation: alert, oriented to person, oriented to place and cooperative; + not oriented to time Results & Data ([facility]) Vital Signs (Past 12 Hours) Vital Signs Temp Pulse Pulse Resp BP Pulse Ox 10/26/20 08:33 36.7 C 80 18 132/67 97 10/26/20 07:39 75 10/26/20 02:53 36.4 C L 72 17 121/61 94 10/25/20 23:07 36.4 C L 77 16 143/79 H 93 Laboratory Results Laboratory Results - last 24 hr 10/25/20 10/25/20 10/25/20 10:00 10:00 10:00 Sodium Potassium Chloride Carbon Dioxide Anion Gap BUN Creatinine Est Cr Clr Drug Dosing Est GFR ( Amer) Est GFR (Non-Af Amer) BUN/Creatinine Ratio Glucose Osmolality 295 Uric Acid Calcium Phosphorus Total Bilirubin AST ALT Alkaline Phosphatase Total Creatine Kinase Total Protein Albumin Globulin Albumin/Globulin Ratio Urine Osmolality Ur Random Creatinine Ur Random Sodium Digoxin Hep Bs Antigen Neg Hepatitis C Antibody Neg Flow Cytometry Specimen Cancelled Flow Cytometry Comment Pending 10/25/20 10/25/20 10/25/20 10:00 12:50 12:50 Sodium Potassium Chloride Carbon Dioxide Anion Gap BUN Creatinine Est Cr Clr Drug Dosing Est GFR ( Amer) Est GFR (Non-Af Amer) BUN/Creatinine Ratio Glucose Osmolality Uric Acid Calcium Phosphorus Total Bilirubin AST ALT Alkaline Phosphatase Total Creatine Kinase Total Protein Albumin Globulin Albumin/Globulin Ratio Urine Osmolality 298 L Ur Random Creatinine 132.0 Ur Random Sodium 18 Digoxin 3.4 H* Hep Bs Antigen Hepatitis C Antibody Flow Cytometry Specimen Flow Cytometry Comment 10/25/20 10/26/20 10/26/20 18:40 05:39 05:39 Sodium 132 L 131 L Potassium 5.1 4.9 Chloride 100 99 Carbon Dioxide 23 23 Anion Gap 9.0 9.0 BUN 66 H 68 H Creatinine 5.27 H* 5.41 H* Est Cr Clr Drug Dosing 7.7 7.5 Est GFR ( Amer) 8.1 7.8 Est GFR (Non-Af Amer) 7.0 6.8 BUN/Creatinine Ratio 12.5 12.8 Glucose 108 H 89 Osmolality Uric Acid 9.6 H Calcium 8.7 8.1 L Phosphorus 7.0 H Total Bilirubin 0.4 AST 34 ALT 19 Alkaline Phosphatase 113 Total Creatine Kinase 43 Total Protein 5.2 L Albumin 2.1 L Globulin 3.1 Albumin/Globulin Ratio 0.7 L Urine Osmolality Ur Random Creatinine Ur Random Sodium Digoxin Hep Bs Antigen Hepatitis C Antibody Flow Cytometry Specimen Flow Cytometry Comment 10/26/20 06:10 Sodium Potassium Chloride Carbon Dioxide Anion Gap BUN Creatinine Est Cr Clr Drug Dosing Est GFR ( Amer) Est GFR (Non-Af Amer) BUN/Creatinine Ratio Glucose Osmolality Uric Acid Calcium Phosphorus Total Bilirubin AST ALT Alkaline Phosphatase Total Creatine Kinase Total Protein Albumin Globulin Albumin/Globulin Ratio Urine Osmolality Ur Random Creatinine Ur Random Sodium Digoxin 1.7 Hep Bs Antigen Hepatitis C Antibody Flow Cytometry Specimen Flow Cytometry Comment PG Care Time/CCT Total # of Minutes Spent Total Time Spent with Patient: Total time spent is greater than 50% in coordination of care (as documented) at patient's floor/unit and/or counseling patient: Coding Level of Care Code 58881 Subseq Hosp Care Lvl 3 Diagnoses TAMY (acute kidney injury) N17.9 CLL (chronic lymphocytic leukemia) C91.10 Chronic atrial fibrillation I48.2
[2020-10-26] MEDS: allopurinoL 100 MG TAB PO SCH (09:36)
--- NOTE | 2020-10-26 10:20 | Palliative Care Consultation ---
Date of Consultation October 26, 2020 Assessment & Plan (1) Palliative care encounter: Radha is a tameka female who presented to the [facility] from [facility] [place] with weakness and abdominal distension that has been occurring over a 3 week period. Additional PMH includes CLL, HTN, CRD Stage III, CVA, chronic Atrial fibrillation, and cirrhosis. She has been noted to have increasing falls over the past few months. On admission, she was evaluated by Dr. 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 A paracentesis was performed removing 3 L. Ultimately, the patient has multiple comorbid conditions including cirrhosis and now stage IV kidney failure and in the setting of these comorbid conditions, is unlikely to benefit from aggressive treatment. Palliative Care was consulted to discuss goals of care. I was able to meet independently with Ms. Elizalde, and was able to speak with her daughter Love, on the phone ([phone]). Ms. Elizalde was able to tell me why she was in the hospital and was able to explain some of her illness. She did say she does get overwhelmed with the complexity of the details of her illness. We talked at length regarding her CLL, cirrhosis and now renal disease. We discussed the worsening of her kidneys and what it means to do, or not do dialysis. She understands that it is likely if she does not pursue dialysis that she would eventually . She expressed that she is comfortable with her life and would not want to pursue something unless it would 'fix it all'. Ultimately, dialysis would be unlikely to prove beneficial for her in light of her other comorbid conditions. I spoke at length with Love, whom agrees and both are in agreement to pursue hospice services. She was living in an apartment at the [place], and per her daughter, will be transitioned to the [facility] side of the [place]. 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 She agreed with changing her code status to DNR/DNI from Full code. Case management aware and working with family for logistical arrangement. Fur ther discussion held with IDT. At this time, patient reports adequate appetite and is not experiencing any substantial symptoms requiring treatment. Appropriate Hospice Diagnosis would include: CLL, ESRD, or liver failure. (2) CLL (chronic lymphocytic leukemia): Has been evaluated by Dr. Becerra Not a good candidate for treatment per review of oncology note. Would recommend transfer to tertiary care center if she wanted to pursue treatment (3) Cognitive impairment: Mild. Able to communicate and partcipate in goals of care and be a reliable decision maker. (4) Cirrhosis: pt has abdominal ascites. She had a paracentesis on 10/24 with 3 L removed no signs of SOB at this time. (5) Renal failure, chronic: baseline creatinine 2.5. 10/25 creatinine 5.0 --> 10/26 now 5.[address] Montes who suggested decision to be made regarding pursuing dialysis. likely guarded response. History of Present Illness Reason for Consultation: Goals of Care Requesting Physician: Dr. Figueredo Attending Physician: Bahman St History of Present Illness Radha is a tameka female who presented to the [facility] from [facility] [place] with weakness and abdominal distension that has been occurring over a 3 week period. Additional PMH includes CLL, HTN, CRD Stage III, CVA, chronic Atrial fibrillation, and cirrhosis. She has been noted to have increasing falls over the past few months. On admission, she was evaluated by Dr. 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 A paracentesis was performed removing 3 L. Ultimately, the patient has multiple comorbid conditions including cirrhosis and now stage IV kidney failure and in the setting of these comorbid conditions, is unlikely to benefit from aggressive treatment. Palliative Care was consulted to discuss goals of care. Please see A/P for further discussion. Thank you kindly for involving the palliative care consultation service with this patient. Allergies Allergy/AdvReac Type Severity Reaction Status Date / Time hydrocodone Allergy Intermediate RASH Verified 11/17/19 13:05 oxycodone Allergy Intermediate RASH Verified 11/17/19 13:05 sertraline Allergy Intermediate RASH- Verified 11/17/19 13:05 TAKES PAXIL W/O PROBLEM adhesive Allergy Mild SOME Verified 11/17/19 13:05 TAPES- RED SKIN naproxen AdvReac Mild HEADACHES Verified 11/17/19 13:05 Home Medications Medication Instructions Recorded Confirmed Type digoxin 125 mcg PO DAILY 05/02/19 10/21/20 History loteprednol etabonate [Lotemax] 1 drp OPB DAILY 05/02/19 10/21/20 History timolol maleate 1 drp OPB BID 05/02/19 10/21/20 History apixaban [Eliquis] 5 mg PO BID #60 tab 05/04/19 10/21/20 Rx aspirin [Ecotrin Low Strength] 81 mg PO QAM #0 tab 05/04/19 10/21/20 Rx atorvastatin 40 mg PO QAM #30 tab 05/04/19 10/21/20 Rx gabapentin 100 mg capsule 100 mg PO QAM 11/17/19 10/21/20 History paroxetine HCl 10 mg tablet 10 mg PO DAILY 11/17/19 10/21/20 History gabapentin 200 mg PO QPM 10/21/20 10/21/20 History metoprolol succinate 25 mg PO DAILY 10/21/20 10/21/20 History Patient History Medical History (Updated 10/26/20 @ 14:13 by JUNO Blancas) Altered mental status Atrial fibrillation Chronic atrial fibrillation CLL (chronic lymphocytic leukemia) Depressive disorder, not elsewhere classified (07/06/13) DVT prophylaxis Endometriosis Leukocytosis Osteoporosis, unspecified (07/06/13) Palliative care encounter Renal failure, chronic RSD (reflex sympathetic dystrophy) Symptoms of cerebrovascular accident (CVA) Warfarin anticoagulation Surgical History H/O eye surgery H/O knee surgery History of ankle surgery History of appendectomy History of hysteroscopy History of right salpingo-oophorectomy History of surgery lumbar sympathetic nerve block History of total abdominal hysterectomy Hx of colonoscopy S/P cataract surgery S/P dilation and curettage Status post repair of nerve carpal tunnel of right hand (developed RSD) 03/21/93 Family History Mother Myocardial infarction Diabetes Hypertension Family/Other Breast cancer Sister Colorectal cancer Brother Hypertension Family history of ischemic heart disease before age 50 Brother Hypertension Family history of ischemic heart disease before age 50 Denies family history of Ovarian cancer Social History Smoking Status: Never smoker Second Hand Exposure: No; Hx Alcohol Use: No Hx Substance Use: No Preferred Language: Faroese Communication Ability: Effective Online Retailer Required: No Beliefs That Will Affect Care: None Current Living Situation: Alone Current Living Situation Comment: [place] independent Other Information That Helps Us Care for You: No Feels Safe at Home: Yes Safety Concerns: Feels Safe At This Time Assistive Devices: Walker Review of Systems Review of Systems: [place] Symptom Assessment System - Revised (ESAS-R) Tiredness: 1/3 Drowsiness: 0/3 Lack of Appetite: 1/3 Shortness of Breath: 0/3 Palliative Performance Scale: 30% Physical Exam Constitutional: + frail appearing, cooperative and comfortable; no acute distress Respiratory: normal respiratory effort; no respiratory distress and no labored breathing Auscultation: + diminished lung sounds Cardiovascular: Heart Sounds: normal S1 and normal S2 Vessels: dorsalis pedis pulses present (doppler); + abnormal peripheral pulses Extremities: + edema; + abnormal capillary refill poor perfusion to bilateral lower extremity Gastrointestinal (Abdomen): normal bowel sounds, soft, nontender, no hepatosplenomegaly Skin: + ecchymosis (bilateral feet ) and + mottling (bilateral feet ) Psychiatric: A+Ox3, euthymic affect Insight: good insight Judgement: good judgement Results & Data ([facility]) Vital Signs (Past 12 Hours) Vital Signs Temp Pulse Pulse Resp BP Pulse Ox 10/26/20 08:33 36.7 C 80 18 132/67 97 10/26/20 07:39 75 10/26/20 02:53 36.4 C L 72 17 121/61 94 10/25/20 23:07 36.4 C L 77 16 143/79 H 93 PG Care Time/CCT Total # of Minutes Spent Total Time Spent with Patient: Total time spent is greater than 50% in coordination of care (as documented) at patient's floor/unit and/or counseling patient: 100 Coding Level of Care Code 41810 Inpt Consult Level 4 Diagnoses Palliative care encounter Z51.5 CLL (chronic lymphocytic leukemia) C91.10 Cognitive impairment R41.89 Cirrhosis K74.60 Renal failure, chronic N18.9 Time Spent (min) 100 Time Spent Midlevel Total time spent 100 minutes with > 50% of that time spent assessing the patient, discussing goals of care with pt and family, along with collaborating with IDT
[2020-10-26 15:58] LABS: Calcium 8.5 mg/dl (8.5-10.1); Creatinine Clr Calc Pharmacy 6.9 ml/min; Est GFR (African American) 7.1; Est GFR (Non-African American) 6.1; Potassium 5.1 mmol/L (3.5-5.1)
--- NOTE | 2020-10-26 22:35 | Hospitalist Progress Note ---
Date of Service October 26, 2020 Assessment & Plan (1) Digoxin toxicity: s/p digibind due to pt's acute renal failure, altered MS, weakness, etc. dig stopped. dig level improved today. stable tele. (2) TAMY (acute kidney injury): Baseline cr is 0.7. Now >5 and continuing to rise. Prerenal cause likely. Cannot rule out hepatorenal syndrome. No obstruction seen on recent CT. Latif in place. appreciate Dr Montes consultation. since transitioning to hospice and no desire for dialysis nothing to do at this time. (3) Carcinomatosis: ascites fluid + for malignancy. Primary site uncertain. In light of already baseline CLL a 2nd cancer is very, very poor prognosis. No evidence of SBP based on cell counts. (4) Cognitive impairment: at baseline (5) Metabolic encephalopathy: dig toxicity, ARF, etc all contributing. supportive care (6) Hyperkalemia: improved 2nd to ARF daily BMP at minimum (7) Anemia: 2nd to CLL, carcinomatosis, etc (8) CLL (chronic lymphocytic leukemia): appreciate heme/onc consult w/ Dr Becerra flow cytometry sent but ultimately the results will not matter -- transitioning to hospice at d/c (9) Fall: Pt fell 3 weeks ago hospice at d/c (10) Weakness: Likely multifactorial given ARF, cancer, ascites, CLL, dig toxicity, etc (11) Chronic atrial fibrillation: stop dig holding eliquis metoprolol on board (12) Symptoms of cerebrovascular accident (CVA): noted ammonia wnl (13) RSD (reflex sympathetic dystrophy): followed by pain management, [facility] (14) HTN (hypertension): (15) Hyperlipidemia: Holding statin (16) Cirrhosis: etiology?? DAVILA? other? (17) DVT prophylaxis: Holding eliquis daughter extensively updated by phone yesterday and today appreciate palliative care consultation transition to home with hospice on SATURDAY Admission and Anticipated Discharge Date Admission Date: October 21, 2020 Subjective patient confused during the visit. similar to yesterday. could not give significant history. did c/o abdominal fullness. flowsheets show poor appetite. tele overnight stable. seen by palliative - home w/ hospice THIS SATURDAY. Review of Systems Constitutional: + fatigue and + anorexia Respiratory: no cough and no dyspnea Cardiovascular: no chest pain Gastrointestinal: + bloating; no nausea Physical Exam Constitutional: + altered mental status and + frail appearing; no acute distress ENMT: external ear and nose normal, oropharynx normal Respiratory: normal respiratory effort, lungs clear to auscultation Cardiovascular: Rate/Rhythm: regular rhythm and + irregularly irregular Hea rt Sounds: normal S1 and normal S2; no murmur Vessels: posterior tibial pulses present and dorsalis pedis pulses present; no JVD Extremities: no edema Gastrointestinal (Abdomen): Inspection/Auscultation: + abdomen distended (ascites) and normal bowel sounds Percussion/Palpation: abdomen nontender and no hepatosplenomegaly Psychiatric: Orientation: alert and oriented to person; + not oriented to place and + not oriented to time Results & Data Results & Data ([facility]) Vital Signs (Past 12 Hours) Vital Signs Temp Pulse Pulse Resp BP Pulse Ox 10/26/20 19:16 36.5 C 73 16 124/72 94 10/26/20 16:14 67 10/26/20 16:06 36.7 C 73 16 121/72 96 10/26/20 12:14 36.4 C L 77 18 122/77 95 Laboratory Results Laboratory Results - last 24 hr 10/26/20 10/26/20 10/26/20 05:39 05:39 06:10 Sodium 131 L Potassium 4.9 Chloride 99 Carbon Dioxide 23 Anion Gap 9.0 BUN 68 H Creatinine 5.41 H* Est Cr Clr Drug Dosing 7.5 Est GFR ( Amer) 7.8 Est GFR (Non-Af Amer) 6.8 BUN/Creatinine Ratio 12.8 Glucose 89 Uric Acid 9.6 H Calcium 8.1 L Phosphorus 7.0 H Total Bilirubin 0.4 AST 34 ALT 19 Alkaline Phosphatase 113 Total Creatine Kinase 43 Total Protein 5.2 L Albumin 2.1 L Globulin 3.1 Albumin/Globulin Ratio 0.7 L Digoxin 1.7 10/26/20 14:56 Sodium 132 L Potassium 5.1 Chloride 98 Carbon Dioxide 26 Anion Gap 8.0 BUN 69 H Creatinine 5.90 H* D Est Cr Clr Drug Dosing 6.9 Est GFR ( Amer) 7.1 Est GFR (Non-Af Amer) 6.1 BUN/Creatinine Ratio 12.0 Glucose 106 H Uric Acid Calcium 8.5 Phosphorus Total Bilirubin AST ALT Alkaline Phosphatase Total Creatine Kinase Total Protein Albumin Globulin Albumin/Globulin Ratio Digoxin ascites culture negative ascites path + for malignant cells PG Care Time/CCT Total # of Minutes Spent Total Time Spent with Patient: Total time spent is greater than 50% in coordination of care (as documented) at patient's floor/unit and/or counseling patient: Coding Level of Care Code 56081 Subseq Hosp Care Lvl 2 Diagnoses Digoxin toxicity T46.0X1A Encounter type: initial encounter Injury intent: accidental or unintentional TAMY (acute kidney injury) N17.9 Carcinomatosis C80.0 Cognitive impairment R41.89 Metabolic encephalopathy G93.41 Hyperkalemia E87.5 Anemia D64.9 Anemia type: unspecified type CLL (chronic lymphocytic leukemia) C91.10 Fall W19.XXXA Weakness R53.1 Chronic atrial fibrillation I48.2 Symptoms of cerebrovascular accident (CVA) R29.90 RSD (reflex sympathetic dystrophy) G90.50 HTN (hypertension) I10 Hyperlipidemia E78.5 Cirrhosis K74.60 DVT prophylaxis Z29.9 (1) Digoxin toxicity Encounter type: initial encounter Injury intent: accidental or unintentional Qualified Code(s): T46.0X1A - Poisoning by cardiac-stimulant glycosides and drugs of similar action, accidental (unintentional), initial encounter (2) Anemia Anemia type: unspecified type Qualified Code(s): D64.9 - Anemia, unspecified
[2020-10-27 07:12] LABS: Hematocrit (blood only) 29.9 % (37-47); Hemoglobin 8.9 g/dL (12.0-16.0); Mean Corpuscular Hemoglobin 24.1 pg (25-34); Mean Corpuscular Hgb Conc 29.8 g/dL (32-36); Mean Platelet Volume 9.4 fL (7.4-10.4); Platelet Count 342 K/uL (130-400); RDW Coefficient of Variation 20.1 % (11.5-14.5); RDW Standard Deviation 57.7 fL (36.4-46.3); Red Blood Count 3.69 M/uL (4.2-5.4); White Blood Count 34.11 K/uL (4.8-10.8)
[2020-10-27] MEDS: GABAPENTIN 100 MG CAP PO SCH (08:34)
[2020-10-27] MEDS: METOPROLOL SUCC 25MG EXT REL TAB PO SCH (08:34)
[2020-10-27] MEDS: TIMOLOL MALEATE 0.25% OP SOLN 5 ML BTL OPB SCH ×2 (08:34→20:19)
[2020-10-27] MEDS: allopurinoL 100 MG TAB PO SCH (08:35)
[2020-10-27] MEDS: LOTEMAX~ORDER AWAITING ACTION SCH ×3 (08:35→23:05)
[2020-10-27] MEDS: PARoxetine HCL 10 MG TAB PO SCH (08:35)
--- NOTE | 2020-10-27 11:42 | Nephrology Progress Note ---
Date of Service October 27, 2020 Assessment & Plan (1) TAMY (acute kidney injury): Clinical presentation consistent with prerenal physiology and possible ATN. Remains oliguric. Palliative care consult appreciated. I reviewed the plan of care with JUNO Mccarty yesterday. I reviewed the plan of care with Radha and Love today. Dialysis will not be considered part of the care plan. They understand that renal recovery is possible but not expected. They are not planning to pursue treatment for her cancer at this time and have opted to proceed with comfort measures only. Blood work will no longer be monitored. Volume status is reasonable at this time. I have no additional recommendations to add. Nephrology will follow peripherally. Please call with any questions or concerns. Admission and Anticipated Discharge Date Admission Date: October 21, 2020 Subjective No acute events overnight. No fevers or chills. Radha had no acute complaints or concerns this AM. Denies pain. No dyspnea. Abdominal fullness without discomfort. Appetite poor. I had a long conversation with Radha's daughter (Love) this AM on the phone and reviewed the plan of care. Radha and Love confirmed a plan to return to [facility] tomorrow with hospice. Radha does not want to pursue hemodialysis. Review of Systems Review of Systems: All systems reviewed & are unremarkable except as noted in HPI & below Physical Exam Constitutional: well developed; no acute distress Eyes: + anicteric sclerae; no corneal abnormality ENMT: Ears: + hearing impairment Mouth: + dry oral mucous membranes; no oral mucosal abnormality Neck: normal visual inspection and trachea midline Respiratory: normal respiratory effort; no respiratory distress Auscultation: + diminished lung sounds; no rhonchi Cardiovascular: Rate/Rhythm: + bradycardic Heart Sounds: normal S1 and normal S2 Extremities: + edema Gastrointestinal (Abdomen): Inspection/Auscultation: + abdomen distended Percussion/Palpation: + ascites; abdomen nontender (mild left sided) and abdomen not rigid Musculoskeletal: Extremities: no clubbing and no petechiae Skin: + turgor decreased; no jaundice Neurologic: awake and + confused Motor/Sensory: no tremor and no asterixis Psychiatric: Orientation: alert, oriented to person, oriented to place and cooperative; + not oriented to time Results & Data ([facility]) Vital Signs (Past 12 Hours) Vital Signs Temp Pulse Pulse Resp BP BP Pulse Ox 11/26/20 07:39 36.2 C L 66 16 127/67 93 10/27/20 02:09 36.5 C 72 16 145/65 H 94 10/26/20 23:41 36.5 C 80 16 123/64 94 Laboratory Results Laboratory Results - last 24 hr 10/26/20 10/27/20 14:56 06:48 WBC 34.11 H* RBC 3.69 L Hgb 8.9 L Hct 29.9 L MCV 81.0 MCH 24.1 L MCHC 29.8 L RDW Std Deviation 57.7 H RDW Coeff of Bekcy 20.1 H Plt Count 342 MPV 9.4 Sodium 132 L Potassium 5.1 Chloride 98 Carbon Dioxide 26 Anion Gap 8.0 BUN 69 H Creatinine 5.90 H* D Est Cr Clr Drug Dosing 6.9 Est GFR ( Amer) 7.1 Est GFR (Non-Af Amer) 6.1 BUN/Creatinine Ratio 12.0 Glucose 106 H Calcium 8.5 PG Care Time/CCT Total # of Minutes Spent Total Time Spent with Patient: Total time spent is greater than 50% in coordination of care (as documented) at patient's floor/unit and/or counseling patient: 35+ minutes Coding Level of Care Code 91230 Subseq Hosp Care Lvl 3 Diagnoses TAMY (acute kidney injury) N17.9
--- NOTE | 2020-10-27 17:28 | Hospitalist Progress Note ---
Date of Service October 27, 2020 Assessment & Plan (1) TAMY (acute kidney injury): Baseline cr is 0.7. Now >5 and continuing to rise. Prerenal cause likely. Cannot rule out hepatorenal syndrome. No obstruction seen on recent CT. Latif in place. appreciate Dr Montes consultation. since transitioning to hospice and no desire for dialysis nothing to do at this time. (2) Digoxin toxicity: s/p digibind earlier this stay (dig level 3.4). was in acute renal failure at same time as dig toxicity. dig stopped. (3) Acute renal failure superimposed on stage 3 chronic kidney disease: (4) Carcinomatosis: ascites fluid + for malignancy. Primary site uncertain. In light of already baseline CLL a 2nd cancer is very, very poor prognosis. No evidence of SBP based on cell counts. ascites already reaccumulating but patient comfortable despite the fluid. (5) Cognitive impairment: at baseline moderate at minimum (6) Metabolic encephalopathy: dig toxicity, ARF, etc all contributing. (7) Hyperkalemia: 2nd to ARF last BMP the K was wnl stop BMP checks - transitioning to hospice (8) Anemia: 2nd to CLL, carcinomatosis, etc (9) CLL (chronic lymphocytic leukemia): appreciate heme/onc consult w/ Dr Becerra flow cytometry sent but ultimately the results will not matter -- transitioning to hospice at d/c (10) Fall: Pt fell 3 weeks ago hospice at d/c (11) Weakness: Likely multifactorial given ARF, cancer, ascites, CLL, dig toxicity, etc (12) Chronic atrial fibrillation: stopped eliquis and dig consider stopping metoprolol at d/c as well (13) Symptoms of cerebrovascular accident (CVA): was likely due to ARF and dig toxicity (14) RSD (reflex sympathetic dystrophy): followed by pain management, [facility] (15) HTN (hypertension): can stop meds at d/c (16) Hyperlipidemia: stop statin (17) Cirrhosis: seen on imaging this admission etiology uncertain no work-up -- transitioning to hospice (18) DVT prophylaxis: Holding mana daughter extensively updated by phone yesterday and today; support given; she was quite emotional knowing her mother may only have 1-2 weeks to live appreciate palliative care consultation d/c back to the [place] on Saturday with hospice Admission and Anticipated Discharge Date Admission Date: October 21, 2020 Subjective no events per staff. UOP very poor - only ~100cc 7am-3pm today. appetite fair/poor. during rounds patient lying flat in bed comfortably. confused like previous visits - she did not remember me nor remember why she was here. Review of Systems Respiratory: no dyspnea Cardiovascular: no chest pain Gastrointestinal: + bloating (With mild "discomfort" upper abdomen ) Physical Exam Constitutional: + altered mental status and + frail appearing; no acute distress ENMT: external ear and nose normal, oropharynx normal Respiratory: normal respiratory effort, lungs clear to auscultation Cardiovascular: Rate/Rhythm: regular rhythm and + irregularly irregular Heart Sounds: normal S1 and normal S2; no murmur Vessels: posterior tibial pulses present and dorsalis pedis pulses present; no JVD Extremities: no edema Gastrointestinal (Abdomen): Inspection/Auscultation: + abdomen distended (ascites - worse than previous exams (reaccumulating)) and normal bowel sounds Percussion/Palpation: abdomen nontender and no hepatosplenomegaly Psychiatric: Orientation: alert and oriented to person; + not oriented to place and + not oriented to time Results & Data Results & Data ([facility]) Vital Signs (Past 12 Hours) Vital Signs Temp Pulse Resp BP Pulse Ox 10/27/20 16:03 36.4 C L 69 16 135/62 92 10/27/20 07:39 36.2 C L 66 16 127/67 93 PG Care Time/CCT Total # of Minutes Spent Total Time Spent with Patient: Total time spent is greater than 50% in coordination of care (as documented) at patient's floor/unit and/or counseling p atient: Coding Level of Care Code 45900 Subseq Hosp Care Lvl 2 Diagnoses TAMY (acute kidney injury) N17.9 Digoxin toxicity T46.0X1A Encounter type: initial encounter Injury intent: accidental or unintentional Acute renal failure superimposed on stage 3 chronic kidney disease N17.9; N18.30 Carcinomatosis C80.0 Cognitive impairment R41.89 Metabolic encephalopathy G93.41 Hyperkalemia E87.5 Anemia D64.9 Anemia type: unspecified type CLL (chronic lymphocytic leukemia) C91.10 Fall W19.XXXA Weakness R53.1 Chronic atrial fibrillation I48.2 Symptoms of cerebrovascular accident (CVA) R29.90 RSD (reflex sympathetic dystrophy) G90.50 HTN (hypertension) I10 Hyperlipidemia E78.5 Cirrhosis K74.60 DVT prophylaxis Z29.9 (1) Digoxin toxicity Encounter type: initial encounter Injury intent: accidental or unintentional Qualified Code(s): T46.0X1A - Poisoning by cardiac-stimulant glycosides and drugs of similar action, accidental (unintentional), initial encounter (2) Anemia Anemia type: unspecified type Qualified Code(s): D64.9 - Anemia, unspecified
[2020-10-28] MEDS: GABAPENTIN 100 MG CAP PO SCH (08:40)
[2020-10-28] MEDS: allopurinoL 100 MG TAB PO SCH (08:40)
[2020-10-28] MEDS: TIMOLOL MALEATE 0.25% OP SOLN 5 ML BTL OPB SCH (08:40)
[2020-10-28] MEDS: PARoxetine HCL 10 MG TAB PO SCH (08:40)
[2020-10-28] MEDS: LOTEMAX~ORDER AWAITING ACTION SCH (08:40)
[2020-10-28] MEDS: METOPROLOL SUCC 25MG EXT REL TAB PO SCH (08:41)
--- NOTE | 2020-10-28 09:19 | Discharge Summary ---
Date of Service October 28, 2020 Admission HPI Per Admitting Provider 85 y/o F c/o weakness and abd distention. Pt's increased weakness was first noted about 2-3 weeks ago. Daughter feels her abd distention also started around then with decreased PO intake as well. Pt has nausea at times, but no emesis. She has no constipation or diarrhea. She does not have pain with her abd distention, it is just mildly uncomfortable. Pt fell about 3 weeks ago. Her daughter wanted her to be seen at that time, however pt declined. She was seen a few days later by cardiology for her routine f/u and was sent to ortho at that time due to LE swelling. Per daughter, pt was seen by ortho and imaging was done at that time. There was no fracture noted and pt declined further workup at that time. Her balance has gotten worse since that time. Pt does note that her bowel movements are regular, but they have become darker recently and possibly sticky. She noted blood in her underwear around December and was seen by her PCP at that time. 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 This was set up for around the time that COVID started and it was decided that pt could wait to see GI at a later date. She never followed up with this. She states she does continue to see blood spots in her underwear, independent of bowel movements. Pt did have a screening c-scope at one point, maybe 6-8 years ago. She states it was "normal" and she decided at that time to not have further c-scopes. She has no hx of colon cancer. She denies formal dx of hemorrhoids, but does believe that she has them. She recently asked her daughter to buy Preperation H for her for this concern. Pt denies fever, SOB, chest pain, LE pain. She has been urinating regularly and without issue. Subjective on day of discharge: Pt was seen sitting up at bedside working with OT. She reports feeling some abdominal discomfort and bloating. No BM today. Ate part of breakfast. Overnight marti had 150 cc out and plan to have this removed today. Denies any other acute complaints. Admission Exam Per Admitting Provider WD/WN, vitals as above Eyes: normal visual espinoza by confrontation and + anicteric sclerae Neck: normal visual inspection and trachea midline Respiratory: normal respiratory effort, lungs clear to auscultation Cardiovascular: Rate/Rhythm: regular rate and regular rhythm Gastrointestinal (Abdomen): Inspection/Auscultation: + abdomen distended Percussion/Palpation: abdomen soft; abdomen nontender Musculoskeletal: Head/Neck/Chest: normocephalic and head atraumatic 3+ pitting edema to thighs b/l, peripheral pulses intact Skin: no rashes, warm and dry Neurologic: awake; not confused Speech / Cognition: normal speech Psychiatric: A+Ox3, euthymic affect Principal Diagnosis Carcinomatosis, CLL, 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, digoxin toxicity Discharge Exam General: awake, alert, no apparent distress, sitting up at beside with assistance, + pallor Head: Normocephalic, atraumatic ENT: PERRL, EOMI, no pharyngeal exudate, mucous membranes moist Chest: Clear to auscultation, on room air, no adventitious breath sounds Cardiac: Regular rate and rhythm, no murmur, no JVD, normal peripheral pulses, good capillary refill Abdominal: + distended, tense, + diminished bs throughout, minimally tender to palpation : marti cath in place draining clear yellow urine Extremities: Normal inspection, 1+ peripheral edema bilaterally, or erythema, calfs nontender to palpation Psych: Normal mood and affect Neuro: AAO x 3, strength intact bilaterally and rated 4/5, no motor deficits, speech is clear, no peripheral sensory deficits Discharge Data Allergies Allergy/AdvReac Type Severity Reaction Status Date / Time hydrocodone Allergy Intermediate RASH Verified 11/17/19 13:05 oxycodone Allergy Intermediate RASH Verified 11/17/19 13:05 sertraline Allergy Intermediate RASH- Verified 11/17/19 13:05 TAKES PAXIL W/O PROBLEM adhesive Allergy Mild SOME Verified 11/17/19 13:05 TAPES- RED SKIN naproxen AdvReac Mild HEADACHES Verified 11/17/19 13:05 Consultations 10/21/20 16:57 ED Decision to Admit Stat 10/21/20 20:55 Consult Case Management - Discharge Planning Routine Consult Hematology Stat 10/25/20 12:07 Consult Nephrology Routine 10/26/20 09:09 Consult Palliative Care Routine Ordered Studies 10/21/20 14:46 CT abd pelvis wo con Stat 10/23/20 09:00 MR brain wo con Routine 10/24/20 15:50 US paracentesis abd w/image Routine Hospital Course (1) TAMY (acute kidney injury): Baseline cr is 0.7. Now >5 and continuing to rise. Prerenal cause likely. Cannot rule out hepatorenal syndrome. No obstruction seen on recent CT. Marti in place - minimal outs overnight at 150 cc - will dc upon discharge. appreciate Dr Montes consultation. since transitioning to hospice and no desire for dialysis nothing to do at this time. (2) Digoxin toxicity: s/p digibind earlier this stay (dig level 3.4). was in acute renal failure at same time as dig toxicity. dig stopped. 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 In light of already baseline CLL a 2nd cancer is very, very poor prognosis. No evidence of SBP based on cell counts. ascites already reaccumulating- pt has slight discomfort when sitting forward but tolerable today (5) Cognitive impairment: at baseline moderate at minimum (6) Metabolic encephalopathy: dig toxicity, ARF, etc all contributing. (7) Hyperkalemia: 2nd to ARF last BMP the K was wnl stop BMP checks - transitioning to hospice (8) Anemia: 2nd to CLL, carcinomatosis, etc (9) CLL (chronic lymphocytic leukemia): appreciate heme/onc consult w/ Dr Becerra flow cytometry sent but ultimately the results will not matter -- transitioning to hospice at d/c (10) Fall: Pt fell 3 weeks ago hospice at d/c OT/PT consults during admission (11) Weakness: Likely multifactorial given ARF, cancer, ascites, CLL, dig toxicity, etc (12) Chronic atrial fibrillation: stopped eliquis and dig will stop metoprolol on d/c as well (13) Symptoms of cerebrovascular accident (CVA): was likely due to ARF and dig toxicity (14) RSD (reflex sympathetic dystrophy): followed by pain management, [facility] (15) HTN (hypertension): can stop meds at d/c (16) Hyperlipidemia: stop statin (17) Cirrhosis: seen on imaging this admission etiology uncertain no work-up -- transitioning to hospice (18) DVT prophylaxis: Holding eliquis Appreciate palliative care consultation Dispo: d/c back to [facility] today with hospice Total Time Total Time Spent Total Time Spent (In Minutes): 35 min Discharge Plan Discharge Items Patient Disposition: Hospice - Home Reason For Visit: ABD DISTENTION Discharge Diagnosis: Carcinamotosis, TAMY on chronic kidney disease, digoxin toxicity Condition on Discharge: Fair Activity: As commented below Activity Comment: As able Lifting Comment: As tolerated Bathing: No limitations Bathing Comment: With assistance Exercise/Sports: None Non-emergency contact: Primary Care Provider Call non-emergency contact if: you have any medication questions and your symptoms worsen Follow-up/Referrals: Daniel Valles MD [Primary Care Provider] - Diet: Regular Addtl Attending Provider Instructions: You were admitted to [facility] due to abdominal distension and diagnosed with carcinamotosis causing fluid accumulation in your abdomen, as well as acute kidney injury with chronic kidney disease. Your body was not able to clear toxins within your body which naturally are filtered through the kidneys. You were discharged on hospice in the setting of CLL (cancer) and kidney failure , as well as digoxin toxicity. During your stay here you were treated with supportive care, medications and were evaluated by nephrology ( kidney doctor) and your symptoms remained stable. You are being discharged on hospice. Medications: Discontinue all medications other than those for comfort as directed. Appointments: Follow up with hospice agency as needed Pending Studies at Discharge: No Stand-Alone Forms: My [facility] Medications and DC Order Prescriptions: Discontinued paroxetine HCl 10 mg tablet 10 mg PO DAILY RF: 0 gabapentin 100 mg capsule 100 mg PO QAM RF: 0 digoxin 250 mcg tablet 125 mcg PO DAILY RF: 0 timolol maleate 0.25 % drops 1 drp OPB BID RF: 0 loteprednol etabonate [Lotemax] 0.5 % drops,suspension 1 drp OPB DAILY RF: 0 atorvastatin 40 mg Tablet 40 mg PO QAM Qty: 30 RF: 0 aspirin [Ecotrin Low Strength] 81 mg Tablet,Delayed Release (Dr/Ec) 81 mg PO QAM Qty: 0 RF: 0 Eliquis 5 mg tablet 5 mg PO BID Qty: 60 RF: 0 gabapentin 100 mg capsule 200 mg PO QPM RF: 0 metoprolol succinate 25 mg tablet extended release 24 hr 25 mg PO DAILY RF: 0 Discharge Orders: Discharge Order (Routine); Ordered 10/28/20 Ordered By: Shayy Bryant Admission Data Admit Date/Time: 10/21/20 19:26 Attending Provider: Jose J Davis Admit Provider: Samina Nascimento Primary Care Provider: Daniel Valles Other Providers: Samina Nascimento ; Jose Becerra V. ; Adam Montes ; Angie Rosa Other Interventions: Discharge Summary Assessment (RN) Last Done: 10/28/20 11:25 Supervising Physician Co-Signing Physician Notes Patient seen and examined on the day of discharge. I agree with the discharge summary by Zoey NIELSEN. I have reviewed the chart including labs, imaging and plans for discharge. patient resting comfortably, all set to return to [facility] on hospice no pain, no dyspnea, she has no questions except when transport will take her - CLL, abdominal carcinomatosis, acute kidney injury (worsening) patient does not want any further work up no serious pain, no dyspnea discharge to personal long-term on hospice Coding Level of Care Code D/C Day Management >30 mins Diagnoses TAMY (acute kidney injury) N17.9 Digoxin toxicity T46.0X1A Encounter type: initial encounter Injury intent: accidental or unintentional Acute renal failure superimposed on stage 3 chronic kidney disease N17.9; N18.30 Carcinomatosis C80.0 Cognitive impairment R41.89 Metabolic encephalopathy G93.41 Hyperkalemia E87.5 Anemia D64.9 Anemia type: unspecified type CLL (chronic lymphocytic leukemia) C91.10 Fall W19.XXXA Weakness R53.1 Chronic atrial fibrillation I48.2 Symptoms of cerebrovascular accident (CVA) R29.90 RSD (reflex sympathetic dystrophy) G90.50 HTN (hypertension) I10 Hyperlipidemia E78.5 Cirrhosis K74.60 DVT prophylaxis Z29.9
== END 2020-10-28 13:59 | disposition hospice, home (50) | DRG 374 ==
LOC: ED 12:44 → SUATTDRO 19:26 → 2N 19:26 → 3W 10-24 08:05 → 2S 10-25 08:05 → 3N 10-27 01:54